=== PATIENT | male | born 1950 | race Caucasian/White ===

== ENCOUNTER 2016-10-05 10:01 | Inpatient (IN) | payer OTHER ==
[2016-10-05 10:19] VITALS: BMI 17.6
--- NOTE | 2016-10-05 10:27 | PDOC ---
History of Present Illness - General Chief Complaint: CVA/TIA Stated Complaint: RT ARM NUMBNESS X1 WEEK/PCP SENT FOR ADMIN Time Seen by Provider: 10/05/16 10:26 History Source: Patient Exam Limitations: No Limitations - History of Present Illness Initial Comments: 10/05/16 10:38 65y M no known pmhx sent to [facility] ED for evaluation of spinal cord mass. The pt endorses having a tingling in his 4-5th digits in may, went to urgent care and was d/x with a pinched nerve, and was referred to PT and pain mangaement who ordered an MRI that was consistent with a mass in the cervical spine at at C7-T1. The pt was referred to dr. Claros who saw the patient today and referred him to the ER for emergent neurosurgical consult. The patient also endorses an extensive smoking history and history of 20lb weight loss over the paseveral months. The pt denies any other pain, weakness/neurlogical deficits. Past History - Past Medical History Allergies/Adverse Reactions: Allergies Allergy/AdvReac Type Severity Reaction Status Date / Time No Known Allergies Allergy Verified 10/05/16 10:15 Home Medications: Ambulatory Orders NK [No Known Home Medication] 10/05/16 Cancer: Yes (MASS IN NECK) - Psycho/Social/Smoking Cessation Hx Suicidal Ideation: No Smoking History: Former smoker Have you smoked in the past 12 months: Yes Information on smoking cessation initiated: No Review of Systems - Review of Systems Able to Perform ROS?: Yes Comments:: 10/05/16 10:54 Constitutional - +weight loss no reported Fever, Chills, weakness, HEENT: no reported vision changes, sore throat Respiratory: no reported cough, sob, hemoptysis Cardiac: no reported chest pain, palpitations, light headedness, leg swelling Abd/GI: no reported abd pain, nausea, vomiting, blood per rectum, melena, diarrhea : no reported dysuria, frequency, discharge Musculskelatal - +neck pain, +R arm weakness no reported joint swelling skin - no reported bruising, erythema, rash neurological: no reported headache, numbness, focal weakness, tingling, ataxia, weakness hematologic: no reported anemia, easy bruising, easy bleeding *Physical Exam - Vital Signs Last Vital Signs Temp Pulse Resp BP Pulse Ox 98.1 F 112 H 19 146/95 98 10/05/16 10:15 10/05/16 10:15 10/05/16 10:15 10/05/16 10:15 10/05/16 10:15 - Physical Exam Comments: 10/05/16 10:56 GENERAL: The patient is awake, alert, and fully oriented, Nontoxic - in no acute distress. HEAD: Normocephalic, atraumatic. EYES: extraocular movements intact, sclera anicteric, conjunctiva clear. ENT: Normal voice, Moist mucous membranes. NECK: mild cervical tenderness diffusely Normal range of motion, supple LUNGS: Breath sounds equal, clear to auscultation bilaterally. No wheezes, no rhonchi, no rales. HEART: Regular rate and rhythm, normal S1 and S2 without murmur, rub or gallop. ABDOMEN: Soft, nontender, normoactive bowel sounds. No guarding, no rebound. . No CVA tenderness EXTREMITIES: Normal range of motion, no edema. No clubbing or cyanosis. No cords, erythema, or tenderness. NEUROLOGICAL: No facial assymetry, Normal speech, elbow flexion/extension intact , wrist flexion/extension intact, unable to abduct/adduct, flex/extend digits, atrophy of the interossei muscles and thenar/hypothenar emeninences. PSYCH: Normal mood, normal affect. SKIN: Warm, Dry, normal turgor, Heart Score/ECG Review - ECG Impressions Comment:: 10/05/16 11:20 Twelve-lead EKG was performed and reviewed by me. There is normal sinus rhythm with a normal rate. rate of 95 The axis is normal. qtc interval of 507 twi in inferior leads ED Treatment Course - LABORATORY CBC & Chemistry Diagram: 10/05/16 10:45 10/05/16 10:45 Medical Decision Making - Medical Decision Making 10/05/16 10:57 65y M presents with R arm weakness and +mass on outpatient MRI pt gien decadron 24mg preop labs and will discuss with neurosurgery anticipate admission for further management pt noted mildly tachycadic will give pt fluids 10/05/16 11:18 The case was discussed with Dr. Osuna, request MRI w/wo contrast of cervical spine and that patient will likely need a metastatic workup in light of his extensiv smoking history. also agree with high dose decadron. 10/05/16 11:44 pts labs noted for mild leukocytosis and an elevated cr to 1.7 with elevated bun cxr shows prominent hilum case d/w dr. doshi agreed with admissio for further management stable for med/surg. Case discussed in detail with admitting physician including history, physical exam and ancillary studies. Admitting physician has assumed care for the patient, will follow all pending diagnostics and will complete the evaluation and treatment. *DC/Admit/Observation/Transfer Diagnosis at time of Disposition: Cervical spinal mass, Right hand weakness - Discharge Dispostion Condition at time of disposition: Guarded Admit: Yes
[2016-10-05] MEDS ORDERED: DEXAMETHASONE SOD PHOSPHATE 20 MG/5 ML VIAL IVPB ONE (10:28)
[2016-10-05] MEDS ORDERED: SODIUM CHLORIDE 500 ML IV STA (10:40)
[2016-10-05] MEDS ORDERED: morphine CARPU-JECT 2 MG/1 ML DISP.SYRIN IVPUSH ONE (10:40)
[2016-10-05] MEDS ORDERED: morphine CARPU-JECT 2 MG/1 ML DISP.SYRIN ONE (10:51)
[2016-10-05 10:54] LABS: BASOPHIL 0.3 % (0-2.0); MCH 28.8 pg (25.7-33.7); MCHC 33.7 g/dl (32.0-35.9); MEAN CELL VOLUME 85.4 fl (80-96); MEAN PLT VOLUME 8.3 fl (7.5-11.1); NEUTROPHILS 91.2 % (42.8-82.8); PLATELET COUNT 231 K/MM3 (134-434); RDW 13.9 % (11.9-15.9); WHITE BLOOD COUNT 15.4 K/mm3 (4.0-10.0)
[2016-10-05] MEDS ORDERED: FAMOTIDINE 20 MG/50 ML IVPB 20 MG in PREMIX 50 IVPB ONE (11:05)
[2016-10-05] MEDS ORDERED: FAMOTIDINE 20 MG/50 ML IVPB 50 ML IVPB ONE (11:09)
[2016-10-05 11:19] LABS: ALBUMIN 4.1 g/dl (3.4-5.0); CALCIUM 10.3 mg/dL (8.5-10.1); CREATININE 1.7 mg/dL (0.7-1.3)
[2016-10-05 11:23] LABS: BILIRUBIN,TOTAL 0.5 mg/dL (0.2-1.0); TOT PROT 7.2 g/dl (6.4-8.2)
[2016-10-05] MEDS ORDERED: SODIUM CHLORIDE 1,000 ML IV SCH (13:45)
--- NOTE | 2016-10-05 14:19 | HP ---
CHIEF COMPLAINT: Right arm weakness. PCP: None HISTORY OF PRESENT ILLNESS: 65 year old male with no PMH presents to the hospital referred from Dr. Claros office. He is complaining of right hand weakness and numbness that started in May. First he noticed numbness and paresthesias in 4th and 5th digit of right hand. He went to urgent clinic where he was told that has pinched nerve, was prescribed pain medications, x ray and PT. He followed that for several weeks without improvement. It got progressively worse. He was sent to pain management doctor who ordered MRI of the spine and referred him to Oncologist- Dr. Claros. He had his first appointment with him today. Today he is also complaining of pain in the cervical spine, weakness in right UE, especially in hand and pain in the tip of his fingers. He also reports decreased sensation in 4th and 5th digits. The pt states that he lost 20 lbs in the past 5 months despite having good appetite. Additionally for the past 3 days he has nasal congestion. Denies fevers, chills, SOB, sore throat. He denies any other loss of sensation, weakness, numbness, dizziness, vision problems, balance problems, headache. He denies chest pain, palpitations, dysuria, increased frequency, urgency. ER course was notable for: (1)WBC (2)BUN, Cr, CXR (3)Dexomethasone, Morphine PAST MEDICAL HISTORY: Denies PAST SURGICAL HISTORY: Denies Social History: Smoking:former smoker, quit 3 weeks ago, 45 years 1 pack/day. Alcohol:denies Drugs: denies Family History: Mother: Bronchiectasis Father: Lung Ca, HTN Allergies: No Known Allergies Allergy (Verified 10/05/16 10:15) HOME MEDICATIONS: Home Medications Medication Instructions Recorded NK [No Known Home Medication] 10/05/16 REVIEW OF SYSTEMS CONSTITUTIONAL: Absent: fever, chills, diaphoresis, generalized weakness, malaise, loss of appetite, weight change HEENT: nasal congestion Absent: rhinorrhea, throat pain, throat swelling, difficulty swallowing, mouth swelling, ear pain, eye pain, visual changes CARDIOVASCULAR: Absent: chest pain, syncope, palpitations, irregular heart rate, lightheadedness , peripheral edema RESPIRATORY: Absent: cough, shortness of breath, dyspnea with exertion, orthopnea, wheezing, stridor, hemoptysis GASTROINTESTINAL: Absent: abdominal pain, abdominal distension, nausea, vomiting, diarrhea, constipation, melena, hematochezia GENITOURINARY: Absent: dysuria, frequency, urgency, hesitancy, hematuria, flank pain, genital pain MUSCULOSKELETAL: Absent: myalgia, arthralgia, joint swelling, back pain, neck pain SKIN: Absent: rash, itching, pallor HEMATOLOGIC/IMMUNOLOGIC: Absent: easy bleeding, easy bruising, lymphadenopathy, frequent infections ENDOCRINE: Absent: unexplained weight gain, unexplained weight loss, heat intolerance, cold intolerance NEUROLOGIC: left arm weakness, loss of sensation in 4th and 5th fingers Absent: headache, dizziness, unsteady gait, seizure, mental status changes, bladder or bowel incontinence PSYCHIATRIC: Absent: anxiety, depression, suicidal or homicidal ideation, hallucinations. PHYSICAL EXAMINATION Vital Signs - 24 hr 10/05/16 10/05/16 12:36 13:03 Temperature 98.6 F Pulse Rate 103 H Pulse Rate [ 88 Apical] Respiratory 18 18 Rate Blood Pressure 188/116 Blood Pressure 182/102 [Left Arm] O2 Sat by Pulse 98 Oximetry (%) GENERAL: Awake, alert, and fully oriented, cachectic. HEAD: Normal with no signs of trauma. EYES: Pupils equal, round and reactive to light, extraocular movements intact, sclera anicteric, conjunctiva clear. No lid lag. EARS, NOSE, THROAT: Ears normal, nares patent, oropharynx clear without exudates. Moist mucous membranes. NECK: Normal range of motion, mild tenderness to palpation. LUNGS: Breath sounds equal, clear to auscultation bilaterally. No wheezes, and no crackles. No accessory muscle use. HEART: Regular rate and rhythm, normal S1 and S2 without murmur, rub or gallop. ABDOMEN: Soft, nontender, not distended, normoactive bowel sounds, no guarding, no rebound, no masses. No hepatomegaly or splenomegaly. MUSCULOSKELETAL: No bony deformities or tenderness. No CVA tenderness. UPPER EXTREMITIES: No peripheral edema, warm. LOWER EXTREMITIES: No peripheral edema, warm. NEUROLOGICAL: Normal speech. Gait not observed, no facial asymmetry, weakness in forearm and arm 4/5, weakness in right hand 2/5, loss of sensation to 4th and 5th digit. PSYCHIATRIC: Cooperative. Good eye contact. Appropriate mood and affect. SKIN: Warm, dry, normal turgor, no rashes or lesions noted. CXR: prominent right hilium, possibility of hiliar mass MRI: Outside MRI of C-spine with C-6/C-7 mass with osseous destruction. Mass extends into spinal canal displacing the spinal cord to L of the midline and severe right neural foramina and right lateral recess narrowing. Has central spinal canal stenosis and discogenic disease as well. ASSESSMENT/PLAN: 65 year old male with no PMH presents to the hospital referred from Dr. Claros office. He is complaining of right hand weakness and numbness that started in May.Today he is also complaining of pain in the cervical spine, weakness in right UE, especially in hand and pain in the tip of his fingers, and decreased sensation in 4th and 5th digits of R hand. The pt states that he lost 20 lbs in the past 5 months. He is admitted to med surg due to cervical mass. 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 Possibly from his lung due to smoking. Will obtain CT abdomen/Pelvis and chest. -MRI reviewed, will f/u next one today -f/u Oncology consultation -f/u Neurosurgery consultation -will order CT chest to f/u results from CXR; -continue steroids: dexamethasone 24 mg Q6h, BGM ACHS -pain control Oxycodone -CT w/o contrast chest and abdomen/pelvis Hypertension; -no home meds, -will start Norvasc 10 mg Daily PAXTON; -possibly due to dehydration -BUN 29, Cr 1.7, no known baseline -will continue fluids NS at rate 75 ml/hr -avoid nephrotoxic substances -BMP in AM DVT PPX: -SCDs F/E/N: NS/No changes/Regular Disposition; Med surg. Problem List - Problem (1) Cervical spinal mass Code(s): G95.9 - DISEASE OF SPINAL CORD, UNSPECIFIED Visit type - Emergency Visit Emergency Visit: Yes ED Registration Date: 10/05/16 Care time: The patient presented to the Emergency Department on the above date and was hospitalized for further evaluation of their emergent condition. - New Patient This patient is new to me today: Yes Date on this admission: 10/05/16 - Critical Care Critical Care patient: No
[2016-10-05] MEDS ORDERED: oxyCODONE HCL 5 MG TABLET PO PRN (14:49)
[2016-10-05] MEDS ORDERED: amLODIPine BESYLATE 5 MG TABLET (FP) ONE (14:54)
[2016-10-05] MEDS: amLODIPine BESYLATE 10 MG TABLET (FP) PO SCH (14:57)
--- NOTE | 2016-10-05 15:06 | EKG ---
Test Reason : Blood Pressure : / mmHG Vent. Rate : 095 BPM Atrial Rate : 095 BPM P-R Int : 138 ms QRS Dur : 084 ms QT Int : 404 ms P-R-T Axes : 079 078 -79 degrees QTc Int : 507 ms NORMAL SINUS RHYTHM MINIMAL VOLTAGE CRITERIA FOR LVH, MAY BE NORMAL VARIANT PROLONGED QT ABNORMAL ECG NO PREVIOUS ECGS AVAILABLE Confirmed by MODESTA ALVARADO MD ([id number]) on 10/05/2016 3:06:11 PM Referred By: Confirmed By:MODESTA ALVARADO MD
--- NOTE | 2016-10-05 15:31 | PN ---
Teaching Attending Note Name of Resident: Myra Erazo ATTENDING PHYSICIAN STATEMENT I saw and evaluated the patient. I reviewed the resident's note and discussed the case with the resident. I agree with the resident's findings and plan as documented. SUBJECTIVE: This is a 65-year-old man with no significant history and who had not seen a physician in many years, who comes to the ER today with pain and weakness of his right arm. He first noted numbness of his right 4th and 5th fingers in May 2016. He then developed pain in his right arm. He went to urgent care and was told he had a pinched nerve. He was advised to take a NSAID and a muscle relaxant. There was no improvement. He then started physical therapy and since his symptoms persisted, he saw an orthopedic surgeon at [place] , who told him he had a herniated disc. He then saw Dr. Mullins and had an MRI of his neck. He was told there was a mass, likely a malignancy, and he was referred to Dr. Claros, who saw him today and sent him to the ER. The patient reports pain in the right posterior neck and 20 lb weight loss over the last 4 months. His appetite had been good until the last few days. He also notes a decrease in frequency of bowel movements but no change in color, size or consistency. OBJECTIVE: Vital Signs Period Temp Pulse Resp BP Sys/Ricci Pulse Ox Last 24 Hr 98.1 F-98.6 F 88-112 18-19 146-188/95-116 98-99 GENERAL: Cachectic HEART: S1 S2, RRR LUNGS: Clear ABDOMEN: Soft, non-tender, non-distended, normal BS EXTREMITIES: No edema NEUROLOGICAL: Decreased sensation right 4th and 5th fingers, right hand grasp 2/ 5 ASSESSMENT AND PLAN: 1. Neck mass - Neurosurgery consult - MRI of neck with contrast recommended - CXR shows prominent right hilum - Will do chest CT to evaluate for lung mass - CT abdomen and pelvis - Oncology consult - Decadron started 2. Possible acute kidney injury, possible stage 3 chronic kidney disease - IV fluid - Monitor BUN, creatinine 3. Hypertension - No ACEI/ARB or diuretic secondary to elevated creatinine - Start Norvasc
--- NOTE | 2016-10-05 15:44 | PN ---
Progress Note (short form) - Note Progress Note: Consult Dictated 65 year old male who presents with progressive weakness, numbness , pain RUE with inability to have significant functioning of RUE. In May had numbness of 4th and 5th digits of right hand. Went to [facility] and had C-spine X-ray and told of "pinched nerve". Patient given Robaxin and Naprosyn. Progressive pain and numbness of RUE with radiation down Right arm. Underwent P.T. x 1 1/2 months - 3 x per week with neck stretching with no relief. Saw Ortho in Jul. and told of herniated disc. Saw Dr. Mullins in August . Had MRI of C-spine with C-6--C-7 mass with osseous destruction .Mass extends into spinal canal displacing the spinal cord left of the midline and resulting in severe right neural foramina and right lateral recess narrowing. Has central spinal canal stenosis and discogenic disease as well. Of interest in [place] and exposed to agent orange in 1969. P.E. non contributory , mid-epigastric fullness and right inguinal hernia with intestinal contents in scrotum. Labs with Ca++-10.3, Creatineine 1.7. Despite good appetite -20 lb weight loss since May. Also 40 pack year smoker discontinued 2 weeks earlier. Likely malignancy --??Lung ca with right hilar fullness, family history, smoking. Plan: CT-chest, abdomen, pelvis - if creatinine improves with hydration - contrast otherwise without Biopsy of Neck mass Steroids--decadron -24 mg IVPB q 6 h and taper.(72 mg, 48 mg, 24 mg and maintain ) Neurosurgery and RT consulted. PPI, DVT prophylaxis- may need to be held for biopsy timing Morphine 2-3 mg q 3-4 h IV Laxatives. N.S and RTconsulted
[2016-10-05] MEDS ORDERED: morphine CARPU-JECT 2 MG/1 ML DISP.SYRIN IVPUSH PRN (15:47)
--- NOTE | 2016-10-05 16:38 | PN ---
Progress Note (short form) - Note Progress Note: NEUROSURGERY History obtained Pt examined Right hand D4-5 weakness, numbness, tingling and pain starting in May. X- rays negative of hand. Symptoms progressively worse and was sent to pain management Dr Mullins who ordered MRI and referred him to Oncologist, Dr. Clraos. He had his first appointment with Dr Claros today. c/o some pain in the cervical spine, weakness in right UE, especially in hand and pain in the tip of his fingers. Also lost 20 lbs in the past 5 months. No primary malignancy, no recent infections. PE: AF, VSS General- unremakable, thin CV-RRR; Lungs- CTA; Abd- benign; Ext- no sign of DVT Neuro- A/A/Ox4 CN- intact, no Juni's; Motor- 5/5 except R hand and triceps 1-2/5; Sensation- decreased LT/PP R C7-8; DTR- decreased R triceps refelx, no LTS Outside MRI of C-spine reportedly with C-6/C-7 mass with osseous destruction. Mass extends into spinal canal displacing the spinal cord to L of the midline and severe right neural foramina and right lateral recess narrowing. Has central spinal canal stenosis and discogenic disease as well. Needs MRI of C spine with juan to better delineate the lesion/extent (though elevated Cr 1.7/BUN 29 with eGFR of 40.40, but above minimal threshold of 30) IVF hydration in anticipation for MRI with juan Renal eval baseline Primary CA w/u per oncology Further recommendations after imaging studies Care d/w patient and Dr Claros
[2016-10-05] MEDS ORDERED: PANTOPRAZOLE 40 MG TABLET (FP) PO ONE (16:51)
[2016-10-05] MEDS: DEXAMETHASONE SOD PHOSPHATE 10 MG/1 ML VIAL IVPB SCH ×2 (16:53→20:51)
[2016-10-05] MEDS: POLYETHYLENE GLYCOL 3350 119 GM BTL PO SCH (16:53)
[2016-10-05] MEDS: SODIUM CHLORIDE 0.45%/POT 1,000 ML IV SCH (17:19)
--- NOTE | 2016-10-05 17:49 | PN ---
Progress Note (short form) - Note Progress Note: Radiation Oncology Pt seen and examined, chart and history reviewed. Full consult to follow. 65 yo smoker reportedly w c-spine mass on outside MRI about 3 wks ago, associated with increasing neck/RUE pain and RUE weakness/numbness. Admitted for further workup, suspect malignancy with spinal canal/cord compromise. Will need tissue diagnosis. MRI is pending. As likely to be metastatic agree with workup for primary site as well as extent of disease. High dose steroids instituted and to continue. Will await MRI. Cont neuro checks. To be seen by neurosurgery.
--- NOTE | 2016-10-05 18:34 | PN ---
Progress Note (short form) - Note Progress Note: Have dropped off MRI and reviewed with Dr. Driscoll. To consider biopsy. Per Dr. Osuna , hydrate such that DEVI might be feasible with MRI.
--- NOTE | 2016-10-05 20:34 | CONS ---
DATE OF CONSULTATION: 10/05/2016 This 65-year-old male was first seen in the office earlier today. He presented with a history of developing numbness of the 4th and 5th digits of his right hand in May. He went to an [facility]. He was prescribed Robaxin as well as Naprosyn. Pain persisted, numbness developed he developed back pain as well as right upper extremity radicular pain. He underwent physiotherapy for 1-1/2 months, receiving it 3 times per week, including neck stretching. He was seen by an orthopedist and was told he had a herniated disk. It should be mentioned that at the [facility], a plain film was done and the patient was told he had a "pinched nerve." The patient was seen by Dr. Mullins in August. Dr. Mullins prescribed an MRI and the patient was found to have a mass in the C6-C7 region with osseous destruction and involvement of the spinal canal with encroachment on the neuroforamen. There was also spinal canal stenosis and diskogenic disease. Over the course of the past 3 months since May, the patient has had a weight loss of 20 pounds. He has had increasing pain and increasing numbness of the right upper extremity, almost to the point that he has called it "nonfunctional". PAST HISTORY: Hypertension and arthritis. PAST SURGICAL HISTORY: He has never had a colonoscopy or upper endoscopy. FAMILY HISTORY: Mother had bronchiectasis. Father was a smoker and had lung cancer. There was a maternal aunt with lung cancer, another maternal aunt with breast cancer and a paternal grandfather with throat cancer. SOCIAL HISTORY: The patient was a 9-uzbn-dew-day smoker for 40 years and discontinued it 2 weeks ago. Patient denies alcohol and drugs. Patient has not had any travel. ALLERGIES: There are no known allergies. REVIEW OF SYSTEMS: Constitutional: No fevers, sweats, night sweats, but with weight loss as aforementioned. Patient is tired and fatigued. Respiratory: Patient is congested with nausea and coughing up clear sputum. There is no chest pain. Gastrointestinal: Some nausea. No emesis. Some constipation. No diarrhea, melena or hematochezia. Genitourinary: No dysuria, hematuria or pyuria. Musculoskeletal: Right upper extremity pain, weakness, numbness, neck pain and back pain. Skin: No rashes. Neurologic: Numbness, right upper extremity and hand. Hematologic: No easy bruisability. Psychologic: No significant abnormalities. ALLERGIES: No known allergies. PHYSICAL EXAMINATION: Vital Signs: BP 160/90, pulse 68, respiratory 18. Weight 127. Height 1.803 m (5 feet 11 inches). BMI 17.7. HEENT: LO. EOM intact. Oropharynx: No pharyngitis, mucositis or tonsillitis. Mild decrease in papillation of the tongue. Neck: No masses, cervical, supraclavicular, axillary or inguinal adenopathy. Lungs: Relatively clear to P&A without rales or rhonchi. Cardiac: RSR without murmur or gallop. Abdomen: No organomegaly. No masses. Mid-epigastric fullness. Right inguinal hernia with right scrotum enlarged with intestinal contents. Extremities: No paresthesias of the lower extremities. Vibratory sense intact, lower extremities. LABORATORY: Labs that are currently available include WBC of 15.4, hematocrit 44.2, platelets 231, polys 91, lymphs 4.3, monocytes 4. INR 1. Chemistries: Sodium 140, potassium 36, chloride 100, CO2 of 28, BUN 29, creatinine 1.7, calcium 10.3, OT 13, PT 15, alkaline phosphatase 71, protein 7.2, albumin 4.1. Chest x-ray reviewed; right prominence of hilum. MRI report reviewed: Mass in the C6-C7, osseous destruction with extension into the spinal canal and encroachment on the neural foramen, diskogenic disease, and cervical canal spinal stenosis. The patient was in [place] in 1969 and was exposed to Agent [place] in 1969. IMPRESSION: With a neck mass with bony destruction, encroachment on the spinal column affecting the neural foramen with right upper extremity weakness, numbness and radicular pains, we are likely dealing with a malignancy. The smoking history of 40-pack years and right hilar fullness raises a concern for a malignancy of the lung. The patient has been placed on steroids with Decadron 24 mg q.6 h. The patient will be seen by Neurosurgery, Radiation Therapy and Interventional Radiology for a biopsy. The patient will need total body CAT scans. The patient will need morphine for pain management. The patient will also need proton pump inhibitors for GI prophylaxis. Further recommendations will be based upon the results of the biopsy and CAT evaluation. ADOLPH COON M.D. JENN/[id number]
[2016-10-05 21:35] LABS: URINE APPEARANCE CLEAR; URINE BILIRUBIN NEGATIVE (NEGATIVE); URINE COLOR YELLOW; URINE GLUCOSE (UA) NEGATIVE (NEGATIVE); URINE KETONE NEGATIVE (NEGATIVE); URINE LEUK ESTERASE NEGATIVE (NEGATIVE); URINE NITRITE NEGATIVE (NEGATIVE); URINE UROBILINOGEN NEGATIVE E.U./dl (0.2-1.0)
[2016-10-05 21:41] LABS: URINE BLOOD 1+ (NEGATIVE); URINE PROTEIN 1+ (NEGATIVE)
[2016-10-06] MEDS: DEXAMETHASONE SOD PHOSPHATE 10 MG/1 ML VIAL IVPB SCH ×3 (02:58→17:14)
[2016-10-06] MEDS: SODIUM CHLORIDE 0.45%/POT 1,000 ML IV SCH ×2 (05:03→17:13)
[2016-10-06 07:46] LABS: MCH 29.4 pg (25.7-33.7); MCHC 34.9 g/dl (32.0-35.9); MEAN CELL VOLUME 84.3 fl (80-96); MEAN PLT VOLUME 8.6 fl (7.5-11.1); PLATELET COUNT 209 K/MM3 (134-434); RDW 13.8 % (11.9-15.9); WHITE BLOOD COUNT 7.9 K/mm3 (4.0-10.0)
[2016-10-06 08:21] LABS: CALCIUM 10.2 mg/dL (8.5-10.1); CREATININE 1.6 mg/dL (0.7-1.3)
[2016-10-06] MEDS: amLODIPine BESYLATE 10 MG TABLET (FP) PO SCH (10:26)
--- NOTE | 2016-10-06 10:39 | PN ---
Progress Note (short form) - Note Progress Note: NEUROSURGERY Same overall Slpept well with minimal pain on high dose iv steroid PE: AF, VSS General- unremakable, thin CV-RRR; Lungs- CTA; Abd- benign; Ext- no sign of DVT Neuro- A/A/Ox4 CN- intact, no Juni's; Motor- 5/5 except R hand and triceps 1-2/5; Sensation- decreased LT/PP R C7-8; DTR- decreased R triceps refelx, no LTS Outside MRI of C-spine reportedly with C-6/C-7 mass with osseous destruction. Mass extends into spinal canal displacing the spinal cord to L of the midline and severe right neural foramina and right lateral recess narrowing. Chest CT- Large posterior RLL mass; ? lymphadenopathy Cr 1.6 now Has central spinal canal stenosis and discogenic disease as well. Needs MRI of C spine with juan to better delineate the lesion/extent (though elevated Cr 1.7/BUN 29 with eGFR of 40.40) IVF hydration in anticipation for MRI with juan Renal eval baseline Primary CA w/u per oncology Further recommendations after Cspine contrast imaging studies Care d/w patient, Dr Meadows and Dr Claros Reportedly for CT guided bx of RLL lung lesion?
--- NOTE | 2016-10-06 11:57 | CONS ---
DATE OF CONSULTATION: 10/05/2016 CHIEF COMPLAINT: Right hand weakness and pain. HISTORY OF PRESENT ILLNESS: The patient is a 65-year-old right-handed male with history of hypertension, who complains of approximately 4+ month history of progressive right hand numbness, paresthesias/pain, and weakness. It first started as numbness and tingling in the 4th and 5th digits of the right hand with decreased range of motion. There was also some associated forearm and hand pain at that time. He was in the urgent care center and x-rays were reportedly negative. The patient was told that he had "pinched nerve." Because of this persistent pain, he was sent for pain management evaluation with Dr. Mullins. The patient had developed worsening weakness over the last few months. This was to a degree that he could not use his right hand at all. He denies Holland sign, and has no bowel or bladder incontinence. His gait has been normal. He denies any recent infections. He has no history of systemic malignancy. The patient had reportedly been exposed to Agent [place] during the [place] by report. He does not see a doctor regularly. He did report a 20-pound weight loss in the last few months. PAST MEDICAL HISTORY: Significant for hypertension. CURRENT MEDICATIONS: Dexamethasone, MiraLAX, Norvasc, oxycodone, and morphine p.r.n. ALLERGIES: No drug allergy. FAMILY HISTORY: Noncontributory. SOCIAL HISTORY: He smokes a half pack of cigarettes for the past 50+ years. He drinks alcohol socially. He lives at home. He is retired. REVIEW OF SYSTEMS: Otherwise negative for other major cardiovascular, pulmonary , gastrointestinal, genitourinary, endocrinologic, neurological, psychological problems except for the above. PHYSICAL EXAMINATION:Vital Signs: Temperature is 98.6, blood pressure is 162/ 106, pulse rate is 97, O2 saturation is 99% on room air. HEENT: Shows him to be normocephalic, atraumatic, anicteric. Neck: Supple with mild paraspinal muscle spasm. Cervical spine flexion is 30 degrees and extension is 25 degrees. Lateral rotation is 35 to 40 degrees in each direction. Coronary: Demonstrates a regular rhythm. Lungs: Clear bilaterally. Abdomen: Benign. Extremities: Show no signs of DVT. Distal pulses are 1+ and symmetric. Neurologic: He is awake, alert and oriented x4. Cranial nerve examination is intact. Motor examination shows 5/5 strength. He has right hand intrinsic muscles which are 0/5. Wrist extensors 2/5 and the right triceps is 1-2/5. Biceps is 4 +/5. Sensory exam demonstrates diminished pinprick and vibratory sensation in the right C7 and C8 distribution. Deep tendon reflexes are 2+ throughout. He has diminished right triceps reflex. Gait is normal. There is no pathological long tract sign. LABORATORY EXAMINATION: Shows a white blood cell count to be 15,400, hemoglobin is 14.9, platelet count is 231,000. INR is 1. Serum sodium is 140 and potassium is 3.6. BUN 29, creatinine 1.7. GFR is 40.4. LFTs are normal. Outside CT scan of the cervical spine reportedly demonstrated paraspinal mass at C6 and C7 with vertebral body destruction. There is also foraminal stenosis on the right as well as some epidural extension with impingement of the spinal cord on the right. These images are not available for my review. IMPRESSION: 1. 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 2. Hypertension. RECOMMENDATIONS: The patient presents with 4+-month history of progressive right hand weakness, numbness, paresthesias, and pain. MRI reportedly demonstrated a paraspinal lesion with vertebral body involvement and epidural extension. Given the description, it is most likely a metastasis. Primary tumor evaluation per Medical Oncology team as initiated. The patient was put on high-dose steroid, per Dr. Claros, already. I also started him on Protonix for gastritis prophylaxis. An MRI of the cervical spine with gadolinium is recommended to evaluate exact extent of the neoplastic disease, as well as a more precise degree of neurologic element impingement. A further recommendation will be made upon availability of the metastatic workup as well as a cervical spine MRI examination. The prognosis for neurological recovery is going to be poor because he has no antigravity strength of his right hand whatsoever already at this time. The above plan was discussed with the patient at bedside. His care was also discussed with Dr. Claros earlier. IV hydration is recommended because of his borderline renal function in anticipation of contrast MRI of the cervical spine. OJ GUO M.D. [id number] [facility]
[2016-10-06] MEDS: POLYETHYLENE GLYCOL 3350 119 GM BTL PO SCH (12:53)
--- NOTE | 2016-10-06 13:18 | CONS ---
DATE OF CONSULTATION: 10/05/2016 REFERRING PHYSICIAN: Aidan Claros MD REASON FOR CONSULTATION: Cervical spine mass with canal encroachment and right arm weakness and numbness. HISTORY OF PRESENT ILLNESS: The patient is a 66-year-old gentleman who started having numbness in the 4th and 5th digits in the right hand in May. He sought medical attention at an urgent care center where he underwent x-ray of the cervical spine. He was told that he had a pinched nerve and was prescribed NSAIDs analgesics. The numbness persisted, and progressively he developed pain involving the hand and arm on the right side. He had physical therapy without improvement. He was seen by the orthopaedic surgeon and was told he had disk herniation. He was seen by Dr. Mullins in August, and MRI of the cervical spine reportedly showed a mass in the C6-C7 level with destruction and encroachment of the spinal canal and neural foramen. He was seen by Dr. Claros in the office today and referred immediately for further inpatient evaluation. Dr. Claros has started high-dose Decadron, and Neurosurgery consult is awaited. The patient reports a [id number] smoking history, exposure to Agent [place] in [place]. No history of radiation therapy or collagen vascular disease. He has lost about 20 pounds without change in appetite over 2-3 months. PAST MEDICAL HISTORY: Osteoarthritis, hypertension. PAST SURGICAL HISTORY: As noted. ALLERGIES: No known drug allergies. CURRENT MEDICATIONS: Decadron 24 mg IV q.6 hours, MiraLAX, Norvasc, morphine p.r.n., oxycodone p.r.n. SOCIAL HISTORY: Smoked 1 pack per day for 40 years until recently. No significant alcohol abuse or use of drugs. Possible exposure to Agent [place] in [place]. FAMILY HISTORY: Mother bronchiectasis. Father lung cancer. Maternal aunt lung cancer. Maternal aunt breast cancer. Paternal grandfather throat cancer. REVIEW OF SYSTEMS: As noted above. PHYSICAL EXAMINATION: General: A well-appearing gentleman appearing his chronological age in no acute distress. His sister is at the bedside. Vital Signs: Temperature 98.6, blood pressure 188/116, pulse 103, respiratory rate 18, weight 127 pounds, Sa02 98% on room air. HEENT: Normocephalic and atraumatic. Moist mucous membranes. Anicteric sclerae. Clear oral cavity. Spine: No discrete adenopathy in the cervical neck. Mild point tenderness in the right paraspinal C6 level. No thoracolumbar tenderness. Lungs: Clear. No axillary adenopathy. Cardiovascular: Regular. Abdomen: Soft and nontender. Nondistended. Extremities: No edema. Neurologic: Alert, oriented x3. Cranial nerves 2-12 are intact. Decreased sensation to light touch in the right upper extremity. Otherwise, normal sensation throughout. Motor exam: 1/5 in the right hand and fingers, 2/5 right forearm extension, 4/5 right biceps flexion. No pronator drift or shoulder deficit. Left upper extremity and bilateral lower extremities are 5/5. Coordination with the exception of the right upper extremity is normal. Toes are mute bilaterally. Gait is normal. RADIOLOGIC DATA: MRI cervical spine at outside facility as noted above. Chest x-ray: Prominent right hilum. Possibility of hilar mass or lymphadenopathy cannot be excluded. LABORATORY DATA: WBC 15.4, hemoglobin 14.9, platelets 231,000. Electrolytes within normal limits. BUN 29, creatinine 1.7, calcium 10.3. Liver function tests within normal limits. PATHOLOGIC DATA: Pending. IMPRESSION: A 66-year-old smoker [place] with cervical spine mass and canal encroachment associated with right upper extremity neurologic deficit highly suspicious for malignancy. He is admitted for further workup including biopsy for tissue diagnosis, further cervical spine imaging with MRI, and body scan for extent of disease and primary site determination. He likely has metastatic disease in the spine with primary site to be determined though high clinical suspicion of pulmonary malignancy. High-dose steroids have been instituted and will continue. We will await the MRI findings, neurosurgical recommendation, and he will continue pain management with analgesics. Further radiotherapy recommendations will follow. I will continue to follow the patient with you. Thank you for the courtesy of this consultation. TEA MONTESINOS M.D. [id number] MTDD
--- NOTE | 2016-10-06 14:25 | PN ---
Physical Exam: SUBJECTIVE: Patient seen and examined. He is feeling good today.He noticed some improvement with his arm. He has less pain in his arm and it is stronger today. He finally had a good night sleep last night. He is complaining of constipation. Denies headache, vision problems, balance problems, numbness. OBJECTIVE: Vital Signs Period Temp Pulse Resp BP Sys/Ricci Pulse Ox Last 24 Hr 98.5 F-98.8 F 83-109 16-18 137-162/81-113 98-99 GENERAL: The patient is awake, alert, and fully oriented, in no acute distress, cachectic. HEAD: Normal with no signs of trauma. EYES: PERRL, extraocular movements intact, sclera anicteric, conjunctiva clear. No ptosis. ENT: moist mucous membranes. NECK: supple. LUNGS: Breath sounds equal, clear to auscultation bilaterally, no wheezes, no crackles, no accessory muscle use. HEART: Regular rate and rhythm, S1, S2 without murmur, rub or gallop. ABDOMEN: Soft, nontender, nondistended, normoactive bowel sounds, no guarding, no rebound, no hepatosplenomegaly, no masses. EXTREMITIES: 2+ pulses, no edema. NEUROLOGICAL: Cranial nerves II through XII grossly intact. Normal speech, gait not observed. RUE: Sensation: decreased in RUE: arm and forearm, absent in 4, 5th fingers. Motor: flexion of elbow4-5/5, extension5/5, shoulder 5/5. LUE, LEs wnl. DTRs: brachial, knee nl. PSYCH: Normal mood, normal affect. SKIN: Warm, dry, normal turgor, no rashes or lesions noted. Laboratory Results - last 24 hr 10/05/16 10/05/16 10/06/16 20:51 21:17 06:21 WBC RBC Hgb Hct MCV MCHC RDW Plt Count MPV Sodium Potassium Chloride Carbon Dioxide Anion Gap BUN Creatinine POC Glucometer 133 137 Random Glucose Calcium Urine Color Yellow Urine Appearance Clear Urine pH 5.0 Ur Specific [place] 1.016 Urine Protein 1+ H Urine Glucose (UA) Negative Urine Ketones Negative Urine Blood 1+ H Urine Nitrite Negative Urine Bilirubin Negative Urine Urobilinogen Negative Ur Leukocyte Esterase Negative 10/06/16 10/06/16 06:50 06:50 WBC 7.9 D RBC 4.59 Hgb 13.5 Hct 38.7 MCV 84.3 MCHC 34.9 RDW 13.8 Plt Count 209 MPV 8.6 Sodium 140 Potassium 4.0 Chloride 103 Carbon Dioxide 25 Anion Gap 12 BUN 35 H D Creatinine 1.6 H POC Glucometer Random Glucose 140 H D Calcium 10.2 H Urine Color Urine Appearance Urine pH Ur Specific [place] Urine Protein Urine Glucose (UA) Urine Ketones Urine Blood Urine Nitrite Urine Bilirubin Urine Urobilinogen Ur Leukocyte Esterase Active Medications Generic Name Dose Route Start Last Admin Trade Name Freq PRN Reason Stop Dose Admin Amlodipine Besylate 10 mg 10/05/16 15:00 10/06/16 10:26 Norvasc - PO 10 mg DAILY TANIA Administration Dexamethasone Sodium Phosphate 24 mg 10/05/16 16:00 10/06/16 10:26 Decadron Injection - IVPB 24 mg Q6H-IV TANIA Administration Potassium Chloride/Sodium Chloride 1,000 mls @ 75 mls/hr 10/05/16 17:00 05:03 1/2ns+20meq Kcl IV 75 mls/hr ASDIR TANIA Administration Morphine Sulfate 2 mg 10/05/16 15:47 Morphine Injection - IVPUSH Q4H PRN PAIN Oxycodone HCl 10 mg 10/05/16 14:49 10/05/16 23:14 Roxicodone - PO 10 mg Q6H PRN Administration PAIN Polyethylene Glycol 17 gm 10/05/16 16:00 10/06/16 12:53 Miralax (For Daily Use) - PO 17 gm DAILY TANIA Administration CXR: prominent right hilium, possibility of hiliar mass MRI: Outside MRI of C-spine with C-6/C-7 mass with osseous destruction. Mass extends into spinal canal displacing the spinal cord to L of the midline and severe right neural foramina and right lateral recess narrowing. Has central spinal canal stenosis and discogenic disease as well. CT chest/abdomen/pelvis; large mass in right lower lobe, scattered nodules in lungs, hydrocele on right kidney, no abdominal pathology ASSESSMENT/PLAN: 65 year old male with no PMH presents to the hospital referred from Dr. Claros office. He is complaining of right hand weakness and numbness that started in May.Today he is also complaining of pain in the cervical spine, weakness in right UE, especially in hand and pain in the tip of his fingers, and no sensation in 4th and 5th digits of R hand. The pt states that he lost 20 lbs in the past 5 months. He is admitted to med surg due to cervical mass. Right UE weakness due to cervical mass -cervical mass possibly from his lung due to smoking, -MRI reviewed, will f/u next one with contrast today -biopsy of the c spine tomorrow -f/u Oncology consultation -f/u Neurosurgery consultation -continue steroids: dexamethasone 24 mg Q6h, BGM ACHS -pain control Oxycodone and Morphine PRN -CT w/o contrast chest and abdomen/pelvis Hypertension; -no home meds, -will start Norvasc 10 mg Daily PAXTON; -possibly due to dehydration -BUN 29, Cr 1.7, no known baseline -will continue fluids 1/2NS and KCl at rate 75 ml/hr -avoid nephrotoxic substances DVT PPX: -SCDs F/E/N: 1/2NS/No changes/Regular Disposition; Med surg. Problem List - Problems (1) Cervical spinal mass Code(s): G95.9 - DISEASE OF SPINAL CORD, UNSPECIFIED (2) Right hand weakness Code(s): M62.81 - MUSCLE WEAKNESS (GENERALIZED) (3) Mass of right lung Code(s): R91.8 - OTHER NONSPECIFIC ABNORMAL FINDING OF LUNG FIELD Visit type - Emergency Visit Emergency Visit: Yes ED Registration Date: 10/05/16 Care time: The patient presented to the Emergency Department on the above date and was hospitalized for further evaluation of their emergent condition. - New Patient This patient is new to me today: No - Critical Care Critical Care patient: No - Discharge Referral Referred to [facility] Med P.C.: No
--- NOTE | 2016-10-06 18:00 | PN ---
Teaching Attending Note Name of Resident: Myra Erazo ATTENDING PHYSICIAN STATEMENT I saw and evaluated the patient. I reviewed the resident's note and discussed the case with the resident. I agree with the resident's findings and plan as documented. SUBJECTIVE: no fever or chills , no abd pain , no TELLES or change in vision . feels improved motor and sensory vergara in RUE. no urinary or fecal incontinence , constipated. OBJECTIVE: NAD CV: RRR, no MRG Lungs : CTAB ext : no edema Neuro : no facial droop, EOMI, round equal pupils , reactive to light , tongue at mid line, uvula at mid line , nl facial sensation . Strength : b/l LE 5/5 proximally and distally . RUE: 5/5 shoulder shrug. 5/5 shoulder abduction , 5/5 biceps , 4/5 triceps , 0-1 /5 hand (finger flexion and extension) LUE : 5/5 shoulder shrug. 5/5 shoulder abduction , 5/5 biceps , 5/5 triceps , 5/ 5 hand. Sensation: RUE: decreased sensation to light touch over fore arm, dorsum and palm, and 1,2, 3rd digit . Absent sensation over 4th, and 5th digits. LUE, LLE, RLE: nl sensation to light touch DTR: 1+ biceps on R , 2+ on L Refused rectal tone exam ASSESSMENT AND PLAN: 66 y/o man with no medical care for a while who presented with R upper ext weakness. 1- RUE weakness, due to c spine mass with compression. Primary is likely lung cancer. - will arrange for lung mass Bx tomorrow. - NPO after MN - cont steroids . - Appreciate onc and neuro sx Recs. - MRI of c spine with juan . GFR > 30 . unlikely pt will develop systemic nephrogenic fibrosis. this risk was explained to pt - monitor neuro exam - might need radiation therapy 2- PAXTON : not clear whether he has CKD or PAXTON . cont IVF 3- hypercalcemia : probably due to malignancy - cont IVF - check PTH - will order PTH related peptide. need prior auth by pathologist 4- OC
--- NOTE | 2016-10-06 20:13 | PN ---
Progress Note (short form) - Note Progress Note: PAtient seen and examined rue weakness pain and sleep improved Last Vital Signs Temp Pulse Resp BP Pulse Ox 98.7 F 97 H 18 130/79 98 10/06/16 17:15 10/06/16 17:15 10/06/16 17:15 10/06/16 17:15 10/06/16 09:00 HEENT: LO, EOM Intact Oropharynx: No thrush, No mucositis Cor: RSR, No murmurs, No gallops Lungs: Clear to P&A Abd: Soft, Normal bowel sounds, No organomegaly Ext:No significant edema Abnormal Lab Results 10/05/16 10/06/16 20:51 06:50 BUN 35 H D Creatinine 1.6 H Random Glucose 140 H D Calcium 10.2 H Urine Protein 1+ H Urine Blood 1+ H Abnormal Lab Results 10/05/16 10/06/16 20:51 06:50 BUN 35 H D Creatinine 1.6 H Random Glucose 140 H D Calcium 10.2 H Urine Protein 1+ H Urine Blood 1+ H Current Medications Amlodipine Besylate (Norvasc -) 10 mg PO DAILY [facility] Last Admin: 10/06/16 10:26 Dose: 10 mg Dexamethasone Sodium Phosphate (Decadron Injection -) 24 mg IVPB Q6H-IV [facility] Last Admin: 10/06/16 17:14 Dose: 24 mg Potassium Chloride/Sodium Chloride (1/2ns+20meq Kcl) 1,000 mls @ 75 mls/hr IV ASDIR [facility] Last Admin: 10/06/16 17:13 Dose: 75 mls/hr Morphine Sulfate (Morphine Injection -) 2 mg IVPUSH Q4H PRN PRN Reason: PAIN Oxycodone HCl (Roxicodone -) 5 mg PO Q6H PRN PRN Reason: PAIN Polyethylene Glycol (Miralax (For Daily Use) -) 17 gm PO DAILY [facility] Last Admin: 10/06/16 12:53 Dose: 17 gm A/P 66 y/o patient with presumed lung cancer-- RUL mass/multiple lung nodules and C spine lesion with cord displacement /compression. RUE weakness taper seroids to 24 mg Q8h , then Q 12h , then 4mg Q 16h for IR guided lung biopsy. will need mutational analysis f/u mri
[2016-10-06] MEDS: oxyCODONE HCL 5 MG TABLET PO PRN (22:01)
[2016-10-07] MEDS: DEXAMETHASONE SOD PHOSPHATE 10 MG/1 ML VIAL IVPB SCH ×3 (01:56→21:05)
--- NOTE | 2016-10-07 06:29 | HOSP ---
Physical Examination Vital Signs: Vital Signs Temperature 98.5 F 10/06/16 20:20 Pulse Rate 97 H 10/06/16 17:15 Respiratory Rate 18 10/06/16 21:00 Blood Pressure 143/84 10/06/16 20:20 O2 Sat by Pulse Oximetry (%) 98 10/06/16 21:00 Labs: CBC, BMP 10/06/16 06:50 10/06/16 06:50 Hospitalist Encounter Assessment: Was informed by my attending the latest report of Brain MRI was received. Went to examine the patient and to perform a neuro check. A/c to the patient, he was feeling much better after he received steroid. Patient said pain over his right upper limb resolved, numbness and tingling sensation over the right finger tips still persists. Denies headache, loc, chest pain, sob, cough, palpitation, abdominal pain, nausea or vomiting. Physical examination Vitals: BP- 140/80mmHg P-85bpm, T-98.4F, RR-15 General: Thinly built male lying in bed comfortably, awake, alert, oriented x 3 , in no acute distress. HEENT-EOM intact, no pallor or icterus Chest: B/L chest clear, no wheeze, no crackles CVS: Regular rate and rhythm, S1, S2, no murmur Neuro: Upper limb B/L sensation intact. Left: Bulk, tone, power, reflex normal Right: Bulk normal, tone normal, Power 2/5, dropping of the right wrist, unable to extend her wrist, reflexes diminished. CN 2-12 intact. Abdominal: soft, non tender, no organomegaly. MRI of brain: A solitary 2.7 x 2.5 x 2 cm enhancing irregular right cerebellar hemispheric mass lesion is identified consistent with metastatic neoplastic disease. Perilesional edema is identified which is at least moderate. MRI report not discussed with the patient. Case discussed with Dr. Yousif. Visit type - Emergency Visit Emergency Visit: Yes ED Registration Date: 10/05/16 Care time: The patient presented to the Emergency Department on the above date and was hospitalized for further evaluation of their emergent condition. - New Patient This patient is new to me today: Yes Date on this admission: 10/07/16 - Critical Care Critical Care patient: No
[2016-10-07] MEDS: amLODIPine BESYLATE 10 MG TABLET (FP) PO SCH (09:20)
[2016-10-07 09:23] LABS: CALCIUM 9.6 mg/dL (8.5-10.1); CREATININE 1.4 mg/dL (0.7-1.3)
[2016-10-07 10:41] LABS: URINE CREATININE 42.9 mg/dL
[2016-10-07] MEDS: SODIUM CHLORIDE 0.45%/POT 1,000 ML IV SCH ×2 (10:41→18:09)
[2016-10-07] MEDS: POLYETHYLENE GLYCOL 3350 119 GM BTL PO SCH (11:50)
[2016-10-07] MEDS: oxyCODONE HCL 5 MG TABLET PO PRN (13:52)
--- NOTE | 2016-10-07 14:22 | PN ---
Teaching Attending Note Name of Resident: Myra Erazo ATTENDING PHYSICIAN STATEMENT I saw and evaluated the patient. I reviewed the resident's note and discussed the case with the resident. I agree with the resident's findings and plan as documented. SUBJECTIVE: No fever or chills , no abd pain , no cp . weakness is still the same and he has pain in R hand OBJECTIVE: NAD CV: RRR, no MRG Lungs : CTAB ext : no edema Neuro : no facial droop, EOMI, round equal pupils , reactive to light , tongue at mid line, uvula at mid line , nl facial sensation . Strength : b/l LE 5/5 proximally and distally . RUE: 5/5 shoulder shrug. 5/5 shoulder abduction , 5/5 biceps , 4/5 triceps , 3/ 5 wrist flexion and extension ,0-1/5 hand (finger flexion and extension) LUE : 5/5 shoulder shrug. 5/5 shoulder abduction , 5/5 biceps , 5/5 triceps , 5/ 5 wrist , 5/5 hand. Sensation: RUE: decreased sensation to light touch over fore arm, dorsum and palm, and 1,2, 3rd digit . Absent sensation over dorsal 4th, and 5th digits. LUE, LLE, RLE: nl sensation to light touch DTR: 2+ biceps on R , 1+ R triceps, 2+ on L biceps and triceps ASSESSMENT AND PLAN: 66 y/o man with no medical care for a while who presented with R upper ext weakness. 1- RUE weakness, due to c spine mass with compression. Primary is likely lung cancer. - MRI with a mass lesionin R cerebellum - unfortunately , did not get the MRCI of C spine with juan yesterday - d/w Dr. Brandon today, C spine bx will provide more tissue for all the test compared to Lung bx - will cancel lung bx and arrange for C spine mass BX tomorrow - NPO after MN - cont steroids . - Appreciate onc and neuro sx Recs. Awaiting MRI results - will probably need RTx for brain lesion 2- PAXTON : not clear whether he has CKD or PAXTON . cont IVF 3- Hypercalcemia : probably due to malignancy . resolved with iVF - cont IVF - PTH pending - PTH related peptide to be ordered if authorized 4- HLOC
--- NOTE | 2016-10-07 15:43 | PN ---
Physical Exam: SUBJECTIVE: Patient seen and examined. He denies numbness, paresthesias, more weakness, states that his arm strength is the same. OBJECTIVE: Vital Signs Period Temp Pulse Resp BP Sys/Ricci Pulse Ox Last 24 Hr 98.4 F-98.7 F 87-97 18-20 130-149/74-95 97-98 GENERAL: The patient is awake, alert, and fully oriented, in no acute distress, cachectic. HEAD: Normal with no signs of trauma. EYES: PERRL, extraocular movements intact, sclera anicteric, conjunctiva clear. No ptosis. ENT: moist mucous membranes. NECK: Trachea midline, full range of motion, supple. LUNGS: Breath sounds equal, clear to auscultation bilaterally, no wheezes, no crackles, no accessory muscle use. HEART: Regular rate and rhythm, S1, S2 without murmur, rub or gallop. ABDOMEN: Soft, nontender, nondistended, normoactive bowel sounds, no guarding, no rebound, no hepatosplenomegaly, no masses. EXTREMITIES: no edema. NEUROLOGICAL: Cranial nerves II through XII grossly intact. Normal speech, gait not observed. Motor: RUE: elbow flexion 4/5, extension 3/5, adduction and abduction 5/5, fingers flexion and extension 2/5, LUE 5/5, LEs; 5/5, DTRs nl, Sensation; RUE: decreased inboth arm and forearm, nl in LUE, LEs. Romberg negative, Babinski negative. PSYCH: Normal mood, normal affect. SKIN: Warm, dry, normal turgor, no rashes or lesions noted Laboratory Results - last 24 hr 10/06/16 10/06/16 10/07/16 17:37 21:30 06:30 Sodium 139 Potassium 4.4 Chloride 104 Carbon Dioxide 26 Anion Gap 9 BUN 47 H D Creatinine 1.4 H POC Glucometer 168 Random Glucose 104 D Calcium 9.6 U Random Total Protein 10 Urine Creatinine 42.9 Protein/Creatinin Ratio 0.24 Active Medications Generic Name Dose Route Start Last Admin Trade Name Freq PRN Reason Stop Dose Admin Amlodipine Besylate 10 mg 10/05/16 15:00 10/07/16 09:20 Norvasc - PO 10 mg DAILY TANIA Administration Dexamethasone Sodium Phosphate 24 mg 10/07/16 22:00 Decadron Injection - IVPB BID TANIA Potassium Chloride/Sodium Chloride 1,000 mls @ 75 mls/hr 10/05/16 17:00 10:41 1/2ns+20meq Kcl IV 75 mls/hr ASDIR TANIA Administration Morphine Sulfate 2 mg 10/05/16 15:47 Morphine Injection - IVPUSH Q4H PRN PAIN Oxycodone HCl 5 mg 10/06/16 18:32 10/07/16 13:52 Roxicodone - PO 5 mg Q6H PRN Administration PAIN Polyethylene Glycol 17 gm 10/05/16 16:00 10/07/16 11:50 Miralax (For Daily Use) - PO 17 gm DAILY TANIA Administration CXR: prominent right hilium, possibility of hiliar mass MRI: Outside MRI of C-spine with C-6/C-7 mass with osseous destruction. Mass extends into spinal canal displacing the spinal cord to L of the midline and severe right neural foramina and right lateral recess narrowing. Has central spinal canal stenosis and discogenic disease as well. CT chest/abdomen/pelvis; large mass in right lower lobe, scattered nodules in lungs, hydrocele on right kidney, no abdominal pathology MRI brain:2.7x2.5x2 cm enhancing right cerebellar hemispheric mass lesion consistent with metastatic disease. MRI cervical spine; pending ASSESSMENT/PLAN: 65 year old male with no PMH presents to the hospital referred from Dr. Claros office. He is complaining of right hand weakness and numbness that started in May.Today he is also complaining of pain in the cervical spine, weakness in right UE, especially in hand and pain in the tip of his fingers, and no sensation in 4th and 5th digits of R hand. The pt states that he lost 20 lbs in the past 5 months. He is admitted to med surg due to cervical mass. Right UE weakness due to cervical mass -cervical mass possibly from his lung due to smoking, -mets to his cerebellum, will require radiotherapy -will f/u next MRI with contrast -biopsy of the c spine tomorrow -f/u Oncology consultation: called Dr. Keith, we will change dexamethasone 24 mg to Q12h -f/u Neurosurgery consultation -[facility] -pain control Oxycodone and Morphine PRN Hypertension; -no home meds, -will start Norvasc 10 mg Daily PAXTON; -possibly due to dehydration -no known baseline -will continue fluids 1/2NS and KCl at rate 75 ml/hr -avoid nephrotoxic substances DVT PPX: -SCDs F/E/N: 1/2NS/No changes/Regular Disposition; Med surg. Problem List - Problems (1) Cervical spinal mass Code(s): G95.9 - DISEASE OF SPINAL CORD, UNSPECIFIED (2) Right hand weakness Code(s): M62.81 - MUSCLE WEAKNESS (GENERALIZED) (3) Mass of right lung Code(s): R91.8 - OTHER NONSPECIFIC ABNORMAL FINDING OF LUNG FIELD Visit type - Emergency Visit Emergency Visit: Yes ED Registration Date: 10/05/16 Care time: The patient presented to the Emergency Department on the above date and was hospitalized for further evaluation of their emergent condition. - New Patient This patient is new to me today: No - Critical Care Critical Care patient: No - Discharge Referral Referred to [facility] Med P.C.: No
--- NOTE | 2016-10-07 23:23 | PN ---
Progress Note (short form) - Note Progress Note: PAtient seen and examined rue weakness pain and sleep improved afvss HEENT: LO, EOM Intact Oropharynx: No thrush, No mucositis Cor: RSR, No murmurs, No gallops Lungs: Clear to P&A Abd: Soft, Normal bowel sounds, No organomegaly Ext:No significant edema labs/meds rviewed A/P 66 y/o patient with presumed lung cancer-- RUL mass/multiple lung nodules and C spine lesion with cord displacement /compression. RUE weakness mri brain---rt. cerebellae mass with edema and mild midline shift taper seroids to 24 Q 12h , then 4mg Q 6h for IR guided spinal mass biopsy. will need mutational analysis f/u mri c spine f/u rad-onc consult will need case management/psychiatric social worker consult regarding disposition
--- NOTE | 2016-10-08 07:32 | PN ---
Progress Note (short form) - Note Progress Note: NEUROSURGERY Stable overall Pain better on iv steroid PE: AF, VSS General- unremakable, thin CV-RRR; Lungs- CTA; Abd- benign; Ext- no sign of DVT Neuro- A/A/Ox4 CN- intact, no Juni's; Motor- 5/5 except R hand and triceps 2/5; Sensation- decreased LT/PP R C7-8; DTR- decreased R triceps refelx, no LTS Outside MRI of C-spine reportedly with C-6/C-7 mass with osseous destruction. Mass extends into spinal canal displacing the spinal cord to L of the midline and severe right neural foramina and right lateral recess narrowing. Chest CT- Large posterior RLL mass; ? lymphadenopathy Brain MRI- R cerebellar 2.5 x 2.8 cm met with edema and mild mass effect C spine MRI- R C6-7-T1 parspinal and vertebral mass with pedicle and laminar involvement, some R sided mass effect on cord at C7, multilevel DDD Primary CA w/u per oncology Given multifocal disease, for systemic tx and XRT instead of surgical intervention For bx for paraspinal lesion per IR preference Pt states he wants to be sedated "I don't want to feel a thing"
[2016-10-08 08:56] LABS: MCH 29.4 pg (25.7-33.7); MEAN CELL VOLUME 86.3 fl (80-96); MEAN PLT VOLUME 8.9 fl (7.5-11.1); NEUTROPHILS 96.7 % (42.8-82.8); PLATELET COUNT 199 K/MM3 (134-434); RDW 14.2 % (11.9-15.9); WHITE BLOOD COUNT 15.5 K/mm3 (4.0-10.0)
[2016-10-08 09:20] LABS: CALCIUM 9.8 mg/dL (8.5-10.1); CREATININE 1.3 mg/dL (0.7-1.3)
[2016-10-08] MEDS: DEXAMETHASONE SOD PHOSPHATE 10 MG/1 ML VIAL IVPB SCH (09:25)
[2016-10-08] MEDS: amLODIPine BESYLATE 10 MG TABLET (FP) PO SCH (09:25)
[2016-10-08 09:26] LABS: ACTIVATED PTT 26.7 SECONDS (26.9-34.4)
[2016-10-08] MEDS: oxyCODONE HCL 5 MG TABLET PO PRN (10:07)
--- NOTE | 2016-10-08 11:09 | PN ---
Progress Note (short form) - Note Progress Note: Radiation Oncology Right arm pain abated on high dose decadron. Remains weak in RUE. MRI brain and C-spine shows right cerebellar mass and right C7T1 epidural mass associated w cord displacement. Scheduled for spine bx today. Will need RT to brain and C-spine. Cont decadron/PPI, analgesics prn. Await tissue diagnosis.
[2016-10-08] MEDS ORDERED: MIDAZOLAM HCL 2 MG/2 ML SINGLE DOSE VIAL IVPUSH ONE (11:30)
[2016-10-08] MEDS ORDERED: oxyCODONE HCL 5 MG TABLET PO PRN ×2 (11:38→14:41)
[2016-10-08] MEDS: POLYETHYLENE GLYCOL 3350 119 GM BTL PO SCH (12:27)
[2016-10-08] MEDS: DEXAMETHASONE SOD PHOSPHATE 4 MG/1 ML VIAL IVPB SCH ×2 (14:53→21:10)
--- NOTE | 2016-10-08 14:56 | PN ---
Teaching Attending Note Name of Resident: Myra Erazo ATTENDING PHYSICIAN STATEMENT I saw and evaluated the patient. I reviewed the resident's note and discussed the case with the resident. I agree with the resident's findings and plan as documented. SUBJECTIVE: no fever or chills , no abd pain , no increased weakness, cont to have pain in R hand OBJECTIVE: NAD CV: RRR, no MRG Lungs : CTAB ext : no edema Neuro : no facial droop, EOMI, round equal pupils , reactive to light , tongue at mid line, uvula at mid line , nl facial sensation . Strength : b/l LE 5/5 proximally and distally . RUE: 5/5 shoulder shrug. 5/5 shoulder abduction , 5/5 biceps , 4/5 triceps , 3/ 5 wrist flexion and extension ,0-1/5 hand (finger flexion and extension) LUE : 5/5 shoulder shrug. 5/5 shoulder abduction , 5/5 biceps , 5/5 triceps , 5/ 5 wrist , 5/5 hand. Sensation: RUE: decreased sensation to light touch over fore arm, dorsum and palm, and 1,2, 3rd digit . Absent sensation over ventral 4th, and 5th digits. LUE, LLE, RLE: nl sensation to light touch DTR: 2+ biceps on R , 1+ R triceps, 2+ on L biceps and triceps ASSESSMENT AND PLAN: 66 y/o man with no medical care for a while who presented with R upper ext weakness. 1- RUE weakness, due to C spine mass with compression. Primary is likely lung cancer. 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 dc IVF 4- Hypercalcemia : probably due to malignancy . resolved with iVF - PTH and PTH related peptide to be ordered if authorized 5- HLOC will dc when a clear plan is in place
--- NOTE | 2016-10-08 15:25 | PN ---
Progress Note (short form) - Note Progress Note: Patient seen and examined Underwent biopsy Tolerated Last Vital Signs Temp Pulse Resp BP Pulse Ox 98.6 F 94 H 19 149/93 97 10/08/16 13:55 10/08/16 13:55 10/08/16 13:55 10/08/16 13:55 10/08/16 12:48 HEENT: LO, EOM Intact Oropharynx: No thrush, No mucositis Cor: RSR, No murmurs, No gallops Lungs: Clear to P&A Abd: Soft, Normal bowel sounds, No organomegaly Ext:No significant edema; RUE - weak ;pain improved Skin: No rashes, Integument intact CBC, BMP 10/08/16 07:00 10/08/16 07:00 Current Medications Generic Name Dose Route Start Last Admin Trade Name Freq PRN Reason Stop Dose Admin Amlodipine Besylate 10 mg 10/05/16 15:00 10/08/16 09:25 Norvasc - PO 10 mg DAILY TANIA Administration Dexamethasone Sodium Phosphate 6 mg 10/08/16 15:00 10/08/16 14:53 Decadron Injection - IVPB 6 mg Q6H-IV TANIA Administration Morphine Sulfate 3 mg 10/08/16 11:39 Morphine Injection - IVPUSH Q4H PRN PAIN Oxycodone HCl 10 mg 10/08/16 14:41 Roxicodone - PO Q4H PRN PAIN Polyethylene Glycol 17 gm 10/05/16 16:00 10/08/16 12:27 Miralax (For Daily Use) - PO Not Given DAILY TANIA 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 Contin 15 mg BID Occupational therapy Plan continue taper of steroids Await Biopsy M.S. Contin PT/OT
--- NOTE | 2016-10-08 16:00 | PN ---
Physical Exam: SUBJECTIVE: Patient seen and examined. he is concerned about the biopsy today [facility] He had 2 BM yesterday, first in 6 days. He is still complaining of weakness in right upper extremity. Denies balance problems , vision problems, SOB. OBJECTIVE: Vital Signs Period Temp Pulse Resp BP Sys/Ricci Pulse Ox Last 24 Hr 98.1 F-98.6 F 88-111 17-88 148-169/84-108 97-100 GENERAL: The patient is awake, alert, and fully oriented, in no acute distress, cachectic. HEAD: Normal with no signs of trauma. EYES: PERRL, extraocular movements intact, sclera anicteric, conjunctiva clear. No ptosis. ENT: moist mucous membranes. NECK: Trachea midline, full range of motion, supple. LUNGS: Breath sounds equal, clear to auscultation bilaterally, no wheezes, no crackles, no accessory muscle use. HEART: Regular rate and rhythm, S1, S2 without murmur, rub or gallop. ABDOMEN: Soft, nontender, nondistended, normoactive bowel sounds, no guarding, no rebound, no hepatosplenomegaly, no masses. EXTREMITIES: no edema. NEUROLOGICAL: Cranial nerves II through XII grossly intact. Normal speech, gait not observed. Motor: RUE: elbow flexion 4/5, extension 3/5, adduction and abduction 5/5, wrist flexion 3/5, extension 4/5, fingers flexion and extension 1/5, LUE 5/ 5, LEs; 5/5, DTRs nl, Sensation; RUE: decreased in arm and forearm, hand. LUE, nl LEs nl. Romberg negative, Babinski negative. PSYCH: Normal mood, normal affect. SKIN: Warm, dry, normal turgor, no rashes or lesions noted. Laboratory Results - last 24 hr 10/07/16 10/07/16 10/07/16 06:30 11:49 11:54 WBC RBC Hgb Hct MCV MCHC RDW Plt Count MPV Neutrophils % Lymphocytes % Monocytes % Eosinophils % Basophils % INR PTT (Actin FS) Sodium Potassium Chloride Carbon Dioxide Anion Gap BUN Creatinine POC Glucometer 115 119 Random Glucose Calcium PTH Intact 26 10/07/16 10/08/16 10/08/16 18:06 06:18 07:00 WBC RBC Hgb Hct MCV MCHC RDW Plt Count MPV Neutrophils % Lymphocytes % Monocytes % Eosinophils % Basophils % INR PTT (Actin FS) Sodium 138 Potassium 4.5 Chloride 101 Carbon Dioxide 27 Anion Gap 10 BUN 44 H Creatinine 1.3 POC Glucometer 157 114 Random Glucose 99 Calcium 9.8 PTH Intact 10/08/16 10/08/16 10/08/16 07:00 08:48 12:30 WBC 15.5 H D RBC 4.79 Hgb 14.1 Hct 41.3 MCV 86.3 MCHC 34.0 RDW 14.2 Plt Count 199 MPV 8.9 Neutrophils % 96.7 H Lymphocytes % 1.9 L D Monocytes % 1.4 L Eosinophils % 0.0 Basophils % 0.0 INR 1.00 PTT (Actin FS) 26.7 L Sodium Potassium Chloride Carbon Dioxide Anion Gap BUN Creatinine POC Glucometer 105 Random Glucose Calcium PTH Intact Active Medications Generic Name Dose Route Start Last Admin Trade Name Freq PRN Reason Stop Dose Admin Amlodipine Besylate 10 mg 10/05/16 15:00 10/08/16 09:25 Norvasc - PO 10 mg DAILY TANIA Administration Dexamethasone Sodium Phosphate 6 mg 10/08/16 15:00 10/08/16 14:53 Decadron Injection - IVPB 6 mg Q6H-IV TANIA Administration Morphine Sulfate 3 mg 10/08/16 11:39 Morphine Injection - IVPUSH Q4H PRN PAIN Morphine Sulfate 15 mg 10/08/16 22:00 Ms Contin - PO BID TANIA Oxycodone HCl 10 mg 10/08/16 14:41 Roxicodone - PO Q4H PRN PAIN Polyethylene Glycol 17 gm 10/05/16 16:00 10/08/16 12:27 Miralax (For Daily Use) - PO Not Given DAILY TANIA CXR: prominent right hilium, possibility of hiliar mass MRI: Outside MRI of C-spine with C-6/C-7 mass with osseous destruction. Mass extends into spinal canal displacing the spinal cord to L of the midline and severe right neural foramina and right lateral recess narrowing. Has central spinal canal stenosis and discogenic disease as well. CT chest/abdomen/pelvis; large mass in right lower lobe, scattered nodules in lungs, hydrocele on right kidney, no abdominal pathology MRI brain:2.7x2.5x2 cm enhancing right cerebellar hemispheric mass lesion consistent with metastatic disease. MRI cervical spine;Neoplastic disease is seen involving the right lower cervical /upper thoracic spine as discussed with resultant mild to moderate leftward spinal cord displacement. This finding demonstrates no gross interval change in comparison to a previous MRI study of 09/08/2016 (performed at a different facility). Accurate comparison however is difficult as exam coverage on the previous study did not fully include the described neoplastic lesion. On the current exam there is probable identification of neoplastic disease extending contiguously into the right brachial plexus. There is also contiguous neoplastic erosion of the right first and second ribs posteriorly. ASSESSMENT/PLAN: 65 year old male with no PMH presents to the hospital referred from Dr. Claros office. He is complaining of right hand weakness and numbness that started in May.Today he is also complaining of pain in the cervical spine, weakness in right UE, especially in hand and pain in the tip of his fingers, and no sensation in 4th and 5th digits of R hand. The pt states that he lost 20 lbs in the past 5 months. He is admitted to med surg due to cervical mass. Right UE weakness due to cervical mass -cervical mass possibly from his lung due to smoking, -biopsy of the c spine done today -f/u Oncology consultation: called Dr. Claros, we will change dexamethasone to 6Q6H today and add pain medication, bigger dose of Oxycodone and Morphine, -f/u pain management metastatic disease to brain and lungs; -cerebellar mass will require radiation -neurological assesment -right lung mass and multiple nodules -continue steroids Hypertension; -no home meds, -will start Norvasc 10 mg Daily PAXTON; -possibly due to dehydration -no known baseline -avoid nephrotoxic substances DVT PPX: -SCDs F/E/N: No/No changes/Regular Disposition; Med surg. Problem List - Problems (1) Cervical spinal mass Code(s): G95.9 - DISEASE OF SPINAL CORD, UNSPECIFIED (2) Right hand weakness Code(s): M62.81 - MUSCLE WEAKNESS (GENERALIZED) (3) Mass of right lung Code(s): R91.8 - OTHER NONSPECIFIC ABNORMAL FINDING OF LUNG FIELD Visit type - Emergency Visit Emergency Visit: Yes ED Registration Date: 10/05/16 Care time: The patient presented to the Emergency Department on the above date and was hospitalized for further evaluation of their emergent condition. - New Patient This patient is new to me today: No - Critical Care Critical Care patient: No - Discharge Referral Referred to [facility] Med P.C.: No
--- NOTE | 2016-10-08 18:25 | CONSULT ---
Consult Consult Specialty:: pain medicien Referred by:: dr anton Reason for Consultation:: right arm pain - History of Present Illness Chief Complaint: right arm pain History of Present Illness: 66 year old man with a recent diagnosis of metastatic lung cancer. I was asked by Dr Anton to see the patient for his pain. I initially had seen the patient 3 weeks ago and ordered an MRI. He was told that he had a mass in his spine and that he needed to go to the ER which he refused. He was then referred to Dr Anton. He currently is feeling better with current pain medications regimen. - Smoking History Smoking history: Former smoker Have you smoked in the past 12 months: Yes Home Medications - Allergies Allergies/Adverse Reactions: Allergies Allergy/AdvReac Type Severity Reaction Status Date / Time No Known Allergies Allergy Verified 10/05/16 10:15 - Home Medications Home Medications: Ambulatory Orders NK [No Known Home Medication] 10/05/16 Physical Exam Vital Signs: Vital Signs Temperature 98.6 F 10/08/16 13:55 Pulse Rate 94 H 10/08/16 13:55 Respiratory Rate 19 10/08/16 13:55 Blood Pressure 149/93 10/08/16 13:55 O2 Sat by Pulse Oximetry (%) 97 10/08/16 12:48 Extremities: Yes: Other (right upper ext weakness and numbness) Labs: CBC, BMP 10/08/16 07:00 10/08/16 07:00 Assessment/Plan Right upper extremity pain secondary to right sided spinal metastatic lesion 1. Continue current pain medications 2. Oncology work up and treatment 3. Recall PRN
[2016-10-08] MEDS: morphine SO4 SUSTAINED ACTING 15 MG TABLET.SA PO SCH (21:49)
[2016-10-09] MEDS: DEXAMETHASONE SOD PHOSPHATE 4 MG/1 ML VIAL IVPB SCH ×4 (03:16→21:23)
[2016-10-09 07:15] LABS: MCH 29.5 pg (25.7-33.7); MCHC 34.6 g/dl (32.0-35.9); MEAN CELL VOLUME 85.4 fl (80-96); PLATELET COUNT 177 K/MM3 (134-434); RDW 13.9 % (11.9-15.9); WHITE BLOOD COUNT 10.4 K/mm3 (4.0-10.0)
[2016-10-09 07:39] LABS: CALCIUM 9.3 mg/dL (8.5-10.1)
[2016-10-09 07:40] LABS: CREATININE 1.4 mg/dL (0.7-1.3)
--- NOTE | 2016-10-09 09:27 | PN ---
Progress Note (short form) - Note Progress Note: NEUROSURGERY Stable overall Pain better; in good spirit S/p biopsy on iv steroid PE: AF, VSS General- unremakable, thin CV-RRR; Lungs- CTA; Abd- benign; Ext- no sign of DVT Neuro- A/A/Ox4 CN- intact, no Juni's; Motor- 5/5 except R hand and triceps 2/5; Sensation- decreased LT/PP R C7-8; DTR- decreased R triceps reflex, no LTS Path- pending Given multifocal disease, for systemic tx and XRT instead of surgical intervention Prognosis guarded-poor given extensive metastatic dz pending path D/w Dr. Botello
[2016-10-09] MEDS: amLODIPine BESYLATE 10 MG TABLET (FP) PO SCH (09:33)
[2016-10-09] MEDS: morphine SO4 SUSTAINED ACTING 15 MG TABLET.SA PO SCH ×2 (09:33→21:23)
[2016-10-09] MEDS: POLYETHYLENE GLYCOL 3350 119 GM BTL PO SCH (09:36)
--- NOTE | 2016-10-09 12:06 | PN ---
Teaching Attending Note Name of Resident: Myra Erazo ATTENDING PHYSICIAN STATEMENT I saw and evaluated the patient. I reviewed the resident's note and discussed the case with the resident. I agree with the resident's findings and plan as documented. SUBJECTIVE: no fever or chills , no pain after pain meds . no new weakness . OBJECTIVE: NAD CV: RRR, no MRG Lungs: CTAB ext : no edema Neuro : no facial droop, EOMI, round equal pupils , reactive to light , tongue at mid line, uvula at mid line , nl facial sensation . Strength : b/l LE 5/5 proximally and distally . RUE: 5/5 shoulder shrug. 5/5 shoulder abduction , 5/5 biceps , 4/5 triceps , 3/ 5 wrist flexion and 2/5 wrist extension ,0-1/5 hand (finger flexion and extension) LUE : 5/5 shoulder shrug. 5/5 shoulder abduction , 5/5 biceps , 5/5 triceps , 5/ 5 wrist, 5/5 hand. Sensation: RUE: Decreased sensation to light touch over fore arm, dorsum and palm, and 1,2, 3rd digit . Absent sensation over ventral 4th, and 5th digits. LUE, LLE, RLE: nl sensation to light touch DTR: 2+ biceps on R , 1+ R triceps, 2+ on L biceps and triceps ASSESSMENT AND PLAN: 66 y/o man with no medical care for a while who presented with R upper ext weakness. 1- RUE weakness, due to C spine mass with compression. Primary is likely lung cancer. 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 willmonitor off IVF 4- Hypercalcemia :resolved . PTH r P pending 5- HLOC Will get first radiation treatment [facility] . case was d/w Dr. Osuna
--- NOTE | 2016-10-09 12:19 | PN ---
Progress Note (short form) - Note Progress Note: Patient seen and examined Underwent biopsy Tolerated He reports his pain is better since when he came to the hospital continues on steroids Vital Signs Period Temp Pulse Resp BP Sys/Ricci Pulse Ox Last 24 Hr 98.2 F-98.6 F 82-94 18-20 121-159/68-106 97-97 HEENT: LO, EOM Intact Oropharynx: No thrush, No mucositis Cor: RSR, No murmurs, No gallops Lungs: Clear to P&A Abd: Soft, Normal bowel sounds, No organomegaly Ext:No significant edema; RUE - weak ;pain improved Skin: No rashes, Integument intact CBC, BMP 10/09/16 06:50 10/09/16 06:50 Active Medications Generic Name Dose Route Start Last Admin Trade Name Freq PRN Reason Stop Dose Admin Amlodipine Besylate 10 mg 10/05/16 15:00 10/09/16 09:33 Norvasc - PO 10 mg DAILY TANIA Administration Dexamethasone Sodium Phosphate 6 mg 10/08/16 15:00 10/09/16 09:35 Decadron Injection - IVPB 6 mg Q6H-IV TANIA Administration Morphine Sulfate 3 mg 10/08/16 11:39 Morphine Injection - IVPUSH Q4H PRN PAIN Morphine Sulfate 15 mg 10/08/16 22:00 10/09/16 09:33 Ms Contin - PO 15 mg BID TANIA Administration Oxycodone HCl 10 mg 10/08/16 14:41 Roxicodone - PO Q4H PRN PAIN Polyethylene Glycol 17 gm 10/05/16 16:00 10/09/16 09:36 Miralax (For Daily Use) - PO Not Given DAILY TANIA Impression: 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 Contin 15 mg BID Occupational therapy continue taper of steroids PT/OT
--- NOTE | 2016-10-09 14:22 | PN ---
Physical Exam: SUBJECTIVE: Patient seen and examined. He is still complaining of weakness in right upper extremity. Denies balance problems, vision problems, SOB. OBJECTIVE: Vital Signs Period Temp Pulse Resp BP Sys/Ricci Pulse Ox Last 24 Hr 98.2 F-98.6 F 82-93 18-20 121-145/68-92 97-97 GENERAL: The patient is awake, alert, and fully oriented, in no acute distress, cachectic. HEAD: Normal with no signs of trauma. EYES: PERRL, extraocular movements intact, sclera anicteric, conjunctiva clear. No ptosis. ENT: moist mucous membranes. NECK: Trachea midline, full range of motion, supple. LUNGS: Breath sounds equal, clear to auscultation bilaterally, no wheezes, no crackles, no accessory muscle use. HEART: Regular rate and rhythm, S1, S2 without murmur, rub or gallop. ABDOMEN: Soft, nontender, nondistended, normoactive bowel sounds, no guarding, no rebound, no hepatosplenomegaly, no masses. EXTREMITIES: no edema. NEUROLOGICAL: Cranial nerves II through XII grossly intact. Normal speech, gait not observed. Motor: RUE: elbow flexion 4/5, extension 3/5, adduction and abduction 5/5, wrist flexion 3/5, extension 4/5, fingers flexion and extension 1/5, LUE 5/ 5, LEs; 5/5, DTRs nl, Sensation; RUE: decreased in arm and forearm, hand. LUE, nl LEs nl. Romberg negative, Babinski negative. PSYCH: Normal mood, normal affect. SKIN: Warm, dry, normal turgor, no rashes or lesions noted. Laboratory Results - last 24 hr 10/07/16 10/08/16 10/09/16 06:30 21:43 06:29 WBC RBC Hgb Hct MCV MCHC RDW Plt Count MPV Sodium Potassium Chloride Carbon Dioxide Anion Gap BUN Creatinine POC Glucometer 139 136 Random Glucose Calcium PTH Intact 26 10/09/16 10/09/16 10/09/16 06:50 06:50 11:52 WBC 10.4 H D RBC 4.51 Hgb 13.3 Hct 38.5 MCV 85.4 MCHC 34.6 RDW 13.9 Plt Count 177 MPV 9.0 Sodium 140 Potassium 4.5 Chloride 103 Carbon Dioxide 29 Anion Gap 8 BUN 44 H Creatinine 1.4 H POC Glucometer 114 Random Glucose 135 H D Calcium 9.3 PTH Intact Active Medications Generic Name Dose Route Start Last Admin Trade Name Freq PRN Reason Stop Dose Admin Amlodipine Besylate 10 mg 10/05/16 15:00 10/09/16 09:33 Norvasc - PO 10 mg DAILY TANIA Administration Dexamethasone Sodium Phosphate 6 mg 10/08/16 15:00 10/09/16 09:35 Decadron Injection - IVPB 6 mg Q6H-IV TANIA Administration Morphine Sulfate 3 mg 10/08/16 11:39 Morphine Injection - IVPUSH Q4H PRN PAIN Morphine Sulfate 15 mg 10/08/16 22:00 10/09/16 09:33 Ms Contin - PO 15 mg BID TANIA Administration Oxycodone HCl 10 mg 10/08/16 14:41 Roxicodone - PO Q4H PRN PAIN Polyethylene Glycol 17 gm 10/05/16 16:00 10/09/16 09:36 Miralax (For Daily Use) - PO Not Given DAILY TANIA CXR: prominent right hilium, possibility of hiliar mass MRI: Outside MRI of C-spine with C-6/C-7 mass with osseous destruction. Mass extends into spinal canal displacing the spinal cord to L of the midline and severe right neural foramina and right lateral recess narrowing. Has central spinal canal stenosis and discogenic disease as well. CT chest/abdomen/pelvis; large mass in right lower lobe, scattered nodules in lungs, hydrocele on right kidney, no abdominal pathology MRI brain:2.7x2.5x2 cm enhancing right cerebellar hemispheric mass lesion consistent with metastatic disease. MRI cervical spine;Neoplastic disease is seen involving the right lower cervical /upper thoracic spine as discussed with resultant mild to moderate leftward spinal cord displacement. This finding demonstrates no gross interval change in comparison to a previous MRI study of 09/08/2016 (performed at a different facility). Accurate comparison however is difficult as exam coverage on the previous study did not fully include the described neoplastic lesion. On the current exam there is probable identification of neoplastic disease extending contiguously into the right brachial plexus. There is also contiguous neoplastic erosion of the right first and second ribs posteriorly. ASSESSMENT/PLAN: 65 year old male with no PMH presents to the hospital referred from Dr. Claros office. He is complaining of right hand weakness and numbness that started in May.Today he is also complaining of pain in the cervical spine, weakness in right UE, especially in hand and pain in the tip of his fingers, and no sensation in 4th and 5th digits of R hand. The pt states that he lost 20 lbs in the past 5 months. He is admitted to med surg due to cervical mass. Right UE weakness due to cervical mass -cervical mass possibly from his lung due to smoking, -biopsy of the c spine done, awaiting results -he will have his first radiation therapy before leaving the hospital -f/u Oncology consultation: called Dr. Claros, we will change dexamethasone to 6Q6H today and add pain medication, bigger dose of Oxycodone and Morphine, -f/u pain management recommendations metastatic disease to brain and lungs; -cerebellar mass will require radiation -neurological assessment -right lung mass and multiple nodules -continue steroids Hypertension; -no home meds, -will start Norvasc 10 mg Daily PAXTON; -possibly due to dehydration -no known baseline -avoid nephrotoxic substances DVT PPX: -SCDs F/E/N: No/No changes/Regular Disposition; Med surg, awaiting biopsy results and first radiation therapy next week Problem List - Problems (1) Cervical spinal mass Code(s): G95.9 - DISEASE OF SPINAL CORD, UNSPECIFIED (2) Right hand weakness Code(s): M62.81 - MUSCLE WEAKNESS (GENERALIZED) (3) Mass of right lung Code(s): R91.8 - OTHER NONSPECIFIC ABNORMAL FINDING OF LUNG FIELD Visit type - Emergency Visit Emergency Visit: Yes ED Registration Date: 10/05/16 Care time: The patient presented to the Emergency Department on the above date and was hospitalized for further evaluation of their emergent condition. - New Patient This patient is new to me today: No - Critical Care Critical Care patient: No - Discharge Referral Referred to [facility] Med P.C.: No
[2016-10-10] MEDS: DEXAMETHASONE SOD PHOSPHATE 4 MG/1 ML VIAL IVPB SCH ×4 (02:26→21:01)
[2016-10-10 08:37] LABS: BASOPHIL 0.1 % (0-2.0); MCH 29.1 pg (25.7-33.7); MCHC 33.6 g/dl (32.0-35.9); MEAN CELL VOLUME 86.6 fl (80-96); MEAN PLT VOLUME 8.7 fl (7.5-11.1); PLATELET COUNT 184 K/MM3 (134-434); RDW 13.9 % (11.9-15.9); WHITE BLOOD COUNT 15.9 K/mm3 (4.0-10.0)
[2016-10-10 09:01] LABS: CALCIUM 9.5 mg/dL (8.5-10.1); CREATININE 1.3 mg/dL (0.7-1.3)
[2016-10-10] MEDS: morphine SO4 SUSTAINED ACTING 15 MG TABLET.SA PO SCH ×2 (09:55→21:31)
[2016-10-10] MEDS: POLYETHYLENE GLYCOL 3350 119 GM BTL PO SCH (09:56)
[2016-10-10] MEDS: amLODIPine BESYLATE 10 MG TABLET (FP) PO SCH (09:56)
--- NOTE | 2016-10-10 10:26 | PN ---
Progress Note (short form) - Note Progress Note: NEUROSURGERY Did not sleep well Pain better; in good spirit S/p biopsy of paraspinal lesion on steroid PE: AF, VSS General- unremakable, thin CV-RRR; Lungs- CTA; Abd- benign; Ext- no sign of DVT Neuro- A/A/Ox4 CN- intact, no Juni's; Motor- 5/5 except R hand and triceps 2/5; Sensation- decreased LT/PP R C7-8; DTR- decreased R triceps reflex, no LTS Path- pending Given multifocal disease, for systemic tx and XRT instead of surgical intervention (pt does not wish to consider surgery anyway); gamma knife could be considered for cerebellar lesion Prognosis guarded-poor given extensive metastatic dz D/w Dr. Botello
[2016-10-10] MEDS ORDERED: PT OWN MED DRAWER 7, Y5N ONE (11:04)
--- NOTE | 2016-10-10 12:42 | PN ---
Progress Note (short form) - Note Progress Note: ONCOLOGY NOTE : Patient seen and examined Underwent biopsy Tolerated He reports his pain is better since when he came to the hospital continues on steroids mild constipation on prn laxatives Vital Signs Period Temp Pulse Resp BP Sys/Ricci Pulse Ox Last 24 Hr 98.4 F-98.7 F 87-92 18-20 139-152/89-94 97 HEENT: LO, EOM Intact Oropharynx: No thrush, No mucositis Cor: RSR, No murmurs, No gallops Lungs: Clear to P&A Abd: Soft, Normal bowel sounds, No organomegaly Ext:No significant edema; RUE - weak ;pain improved Skin: No rashes, Integument intact CBC, BMP 10/10/16 08:25 10/10/16 08:25 Active Medications Generic Name Dose Route Start Last Admin Trade Name Freq PRN Reason Stop Dose Admin Amlodipine Besylate 10 mg 10/05/16 15:00 10/10/16 09:56 Norvasc - PO 10 mg DAILY TANIA Administration Dexamethasone Sodium Phosphate 6 mg 10/08/16 15:00 10/10/16 09:56 Decadron Injection - IVPB 6 mg Q6H-IV TANIA Administration Morphine Sulfate 3 mg 10/08/16 11:39 Morphine Injection - IVPUSH Q4H PRN PAIN Morphine Sulfate 15 mg 10/08/16 22:00 10/10/16 09:55 Ms Contin - PO 15 mg BID TANIA Administration Oxycodone HCl 10 mg 10/08/16 14:41 Roxicodone - PO Q4H PRN PAIN Polyethylene Glycol 17 gm 10/05/16 16:00 10/10/16 09:56 Miralax (For Daily Use) - PO 17 gm DAILY TANIA Administration Impression: Lung mass, SPLITTER HAND-cerebellar mass, 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 Contin 15 mg BID Occupational therapy continue taper of steroids will add PPI for stress ulcer prophylaxis from iv steroids PT/OT
--- NOTE | 2016-10-10 15:06 | PN ---
Progress Note (short form) - Note Progress Note: Subjective:no fever or chills , weakness and numbness in RUE is still the same Objective: Vital Signs: Last Vital Signs Temp Pulse Resp BP Pulse Ox 98.4 F 82 18 160/90 97 10/10/16 10:00 10/10/16 10:00 10/10/16 10:00 10/10/16 10:00 10/10/16 09:00 Physical Exam: NAD CV: RRR, no MRG Lungs: CTAB ext : no edema Neuro : no facial droop, EOMI, round equal pupils , reactive to light , tongue at mid line, nl facial sensation . Strength : b/l LE 5/5 proximally and distally . RUE: 5/5 shoulder shrug. 5/5 shoulder abduction , 5/5 biceps , 4/5 triceps , 3/ 5 wrist flexion and 2/5 wrist extension ,0-1/5 hand (finger flexion and extension) LUE : 5/5 shoulder shrug. 5/5 shoulder abduction , 5/5 biceps , 5/5 triceps , 5/ 5 wrist, 5/5 hand. Sensation: RUE: Decreased sensation to light touch over fore arm, dorsum and palm, and 1,2, 3rd digit . Absent sensation over ventral 4th, and 5th digits. LUE, LLE, RLE: nl sensation to light touch DTR: 2+ biceps on R , 1+ R triceps, 2+ on L biceps and triceps Laboratory Results - last 24 hr 10/09/16 10/10/16 10/10/16 17:35 06:07 08:25 WBC 15.9 H D RBC 4.89 Hgb 14.2 Hct 42.3 MCV 86.6 MCHC 33.6 RDW 13.9 Plt Count 184 MPV 8.7 Neutrophils % 93.0 H Lymphocytes % 1.9 L Monocytes % 5.0 D Eosinophils % 0.0 Basophils % 0.1 D Sodium Potassium Chloride Carbon Dioxide Anion Gap BUN Creatinine POC Glucometer 151 136 Random Glucose Calcium 10/10/16 08:25 WBC RBC Hgb Hct MCV MCHC RDW Plt Count MPV Neutrophils % Lymphocytes % Monocytes % Eosinophils % Basophils % Sodium 139 Potassium 4.6 Chloride 102 Carbon Dioxide 26 Anion Gap 11 BUN 44 H Creatinine 1.3 POC Glucometer Random Glucose 104 D Calcium 9.5 ASSESSMENT AND PLAN: 66 y/o man with no medical care for a while who presented with R upper ext weakness. 1- RUE weakness, due to C spine mass with compression. Primary is likely lung cancer. - RTx to cervical lesion after tissue diagnosis - cont narcotics for pain - cont steroids , day 3 on dex 6 mg q6 hr 2- Metastatic cancer to brain and C spine ( likely form lung) -PAth not available at this time - likely RT for brain and C spine - Chemo options per ONc - appreciate all Recs 3- PAXTON : stable cr , might have CKD . w/u as out pt 4- Hypercalcemia :resolved . PTH r P pending 5- HLOC Will get first radiation treatment in house before dc . Visit type - Emergency Visit Emergency Visit: Yes ED Registration Date: 10/05/16 Care time: The patient presented to the Emergency Department on the above date and was hospitalized for further evaluation of their emergent condition. - New Patient This patient is new to me today: No - Critical Care Critical Care patient: No
[2016-10-10] MEDS: PANTOPRAZOLE 20 MG TABLET (FP) PO SCH (15:09)
[2016-10-11] MEDS: DEXAMETHASONE SOD PHOSPHATE 4 MG/1 ML VIAL IVPB SCH ×4 (03:02→21:54)
[2016-10-11] MEDS: morphine CARPU-JECT 4 MG/1 ML DISP.SYRIN IVPUSH PRN (04:24)
[2016-10-11] MEDS ORDERED: ONDANSETRON 4 MG/2 ML VIAL IVPB ONE (04:29)
[2016-10-11] MEDS ORDERED: ONDANSETRON 4 MG/2 ML VIAL ONE (04:36)
--- NOTE | 2016-10-11 09:32 | PN ---
Progress Note (short form) - Note Progress Note: NEUROSURGERY Resting comfortably S/p biopsy of paraspinal lesion, path pending PE: Tmax 98.8, AF, VSS General- unremakable, thin CV-RRR; Lungs- CTA; Abd- benign; Ext- no sign of DVT Neuro- A/A/Ox3 CN- intact, no Juni's; Motor- 5/5 except R hand and triceps 2/5; Sensation- decreased LT/PP R C7-8; DTR- decreased R triceps reflex, no LTS Multifocal metastatic disease, for systemic tx and XRT instead of surgical intervention (pt does not wish to consider surgery anyway); gamma knife could be considered for R cerebellar lesion (2.5 cm max diameter) Med onc/Rad on f/u Prognosis guarded-poor given extensive metastatic dz D/w medical team this am
[2016-10-11] MEDS ORDERED: PT OWN MED DRAWER 7, Y5N ONE ×2 (09:39→15:50)
[2016-10-11] MEDS: morphine SO4 SUSTAINED ACTING 15 MG TABLET.SA PO SCH ×2 (09:45→21:53)
[2016-10-11] MEDS: POLYETHYLENE GLYCOL 3350 119 GM BTL PO SCH ×2 (09:45→17:45)
[2016-10-11] MEDS: amLODIPine BESYLATE 10 MG TABLET (FP) PO SCH (09:46)
[2016-10-11] MEDS: PANTOPRAZOLE 20 MG TABLET (FP) PO SCH (09:46)
[2016-10-11 12:29] LABS: MCH 28.7 pg (25.7-33.7); MCHC 33.4 g/dl (32.0-35.9); MEAN PLT VOLUME 8.9 fl (7.5-11.1); PLATELET COUNT 156 K/MM3 (134-434); RDW 13.6 % (11.9-15.9); WHITE BLOOD COUNT 21.4 K/mm3 (4.0-10.0)
[2016-10-11 12:54] LABS: PLATELET ESTIMATE ADEQUATE (NORMAL)
--- NOTE | 2016-10-11 14:55 | PN ---
Physical Exam: SUBJECTIVE: Patient seen and examined. He is complaining of lower abdominal pain and constipation. He states that started yesterday when he hav some meat for diner. He has been passing gas and had BM yesterday. He denies N/V, fever, chills, dizziness, vision problems. OBJECTIVE: Vital Signs Period Temp Pulse Resp BP Sys/Ricci Pulse Ox Last 24 Hr 98.3 F-99.4 F 87-108 18-20 141-160/83-95 96-96 GENERAL: The patient is awake, alert, and fully oriented, in no acute distress, cachectic. HEAD: Normal with no signs of trauma. EYES:extraocular movements intact. No ptosis. ENT: moist mucous membranes. NECK: Trachea midline, full range of motion, supple. LUNGS: Breath sounds equal, clear to auscultation bilaterally, no wheezes, no crackles, no accessory muscle use. HEART: Regular rate and rhythm, S1, S2 without murmur, rub or gallop. ABDOMEN: Soft, tender to palpation in lower abdomen, guarding in RLQ, no rebound tenderness, nl BS, distended, normoactive bowel sounds, no hepatosplenomegaly, no masses. EXTREMITIES: no edema. NEUROLOGICAL: Cranial nerves II through XII grossly intact. Normal speech, gait not observed. Motor: RUE: elbow flexion 4/5, extension 3/5, adduction and abduction 5/5, wrist flexion 4/5, extension 4/5, fingers flexion and extension 1/5, LUE 5/ 5, LEs; 5/5, DTRs nl, Sensation; RUE: decreased in arm and forearm, hand. LUE, nl LEs nl. Romberg negative, Babinski negative. PSYCH: Normal mood, normal affect. SKIN: Warm, dry, normal turgor, no rashes. Laboratory Results - last 24 hr 10/08/16 10/08/16 10/10/16 17:25 17:28 17:27 WBC RBC Hgb Hct MCV MCHC RDW Plt Count MPV Neutrophils % Lymphocytes % Monocytes % Differential Comment Reactive Lymphocytes Platelet Estimate POC Glucometer 112 165 111 10/11/16 10/11/16 10/11/16 06:12 11:56 12:05 WBC 21.4 H D RBC 4.79 Hgb 13.7 Hct 41.2 MCV 86.0 MCHC 33.4 RDW 13.6 Plt Count 156 MPV 8.9 Neutrophils % 98.0 H Lymphocytes % Y Monocytes % 1.0 L Differential Comment Manual diff done Reactive Lymphocytes 1 Platelet Estimate Adequate POC Glucometer 124 118 Active Medications Generic Name Dose Route Start Last Admin Trade Name Freq PRN Reason Stop Dose Admin Amlodipine Besylate 10 mg 10/05/16 15:00 10/11/16 09:46 Norvasc - PO 10 mg DAILY TANIA Administration Dexamethasone Sodium Phosphate 6 mg 10/08/16 15:00 10/11/16 09:44 Decadron Injection - IVPB 6 mg Q6H-IV TANIA Administration Morphine Sulfate 3 mg 10/08/16 11:39 10/11/16 04:24 Morphine Injection - IVPUSH 3 mg Q4H PRN Administration PAIN Morphine Sulfate 15 mg 10/08/16 22:00 10/11/16 09:45 Ms Contin - PO 15 mg BID TANIA Administration Pantoprazole Sodium 20 mg 10/10/16 12:45 10/11/16 09:46 Protonix - PO 20 mg DAILY TANIA Administration Polyethylene Glycol 17 gm 10/05/16 16:00 10/11/16 09:45 Miralax (For Daily Use) - PO Not Given DAILY TANIA CXR: prominent right hilium, possibility of hiliar mass MRI: Outside MRI of C-spine with C-6/C-7 mass with osseous destruction. Mass extends into spinal canal displacing the spinal cord to L of the midline and severe right neural foramina and right lateral recess narrowing. Has central spinal canal stenosis and discogenic disease as well. CT chest/abdomen/pelvis; large mass in right lower lobe, scattered nodules in lungs, hydrocele on right kidney, no abdominal pathology MRI brain:2.7x2.5x2 cm enhancing right cerebellar hemispheric mass lesion consistent with metastatic disease. MRI cervical spine;Neoplastic disease is seen involving the right lower cervical /upper thoracic spine as discussed with resultant mild to moderate leftward spinal cord displacement. This finding demonstrates no gross interval change in comparison to a previous MRI study of 09/08/2016 (performed at a different facility). Accurate comparison however is difficult as exam coverage on the previous study did not fully include the described neoplastic lesion. On the current exam there is probable identification of neoplastic disease extending contiguously into the right brachial plexus. There is also contiguous neoplastic erosion of the right first and second ribs posteriorly. ASSESSMENT/PLAN: 65 year old male with no PMH presents to the hospital referred from Dr. Claros office. He is complaining of right hand weakness and numbness that started in May.Today he is also complaining of pain in the cervical spine, weakness in right UE, especially in hand and pain in the tip of his fingers, and no sensation in 4th and 5th digits of R hand. The pt states that he lost 20 lbs in the past 5 months. He is admitted to med surg for RUE weakness due to cervical mass. Right UE weakness due to cervical mass -cervical mass possibly from his lung due to smoking, -biopsy of the c spine done, awaiting results -he will have his first radiation therapy before leaving the hospital, discussed with Dr. 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; -cerebellar mass will require radiation, pt doesn't want surgery -neurological assessment -right lung mass and multiple nodules -continue steroids Hypercalcemia: -resolved -PTH rp pending Hypertension; -no home meds, -will start Norvasc 10 mg Daily Lower abdominal pain: -abdominal x ray to r/o obstruction -continue Miralax daily PAXTON; -possibly due to dehydration -no known baseline -avoid nephrotoxic substances DVT PPX: -SCDs -ambulating F/E/N: No/No changes/Regular Disposition; Med surg, awaiting biopsy results Problem List - Problems (1) Cervical spinal mass Code(s): G95.9 - DISEASE OF SPINAL CORD, UNSPECIFIED (2) Right hand weakness Code(s): M62.81 - MUSCLE WEAKNESS (GENERALIZED) (3) Mass of right lung Code(s): R91.8 - OTHER NONSPECIFIC ABNORMAL FINDING OF LUNG FIELD Visit type - Emergency Visit Emergency Visit: Yes ED Registration Date: 10/05/16 Care time: The patient presented to the Emergency Department on the above date and was hospitalized for further evaluation of their emergent condition. - New Patient This patient is new to me today: No - Critical Care Critical Care patient: No - Discharge Referral Referred to [facility] Med P.C.: No
[2016-10-11] MEDS ORDERED: LACTULOSE 20 GM/30 ML UDC (FOR ORAL USE ONLY) PO ONE (17:50)
--- NOTE | 2016-10-11 17:59 | PN ---
Teaching Attending Note Name of Resident: Myra Erazo ATTENDING PHYSICIAN STATEMENT I saw and evaluated the patient. I reviewed the resident's note and discussed the case with the resident. I agree with the resident's findings and plan as documented. SUBJECTIVE: No fever or chills. Has abd pain in lower abd , constipated , has no dysuria. OBJECTIVE: NAD CV: RRR, no MRG Lungs: CTAB ext : no edema Abd : soft, ND, NL BS , TTP in lower quadrants , no rebound tenderness or guarding Neuro : no facial droop, EOMI Strength : b/l LE 5/5 proximally and distally . RUE: 5/5 shoulder shrug. 5/5 shoulder abduction , 5/5 biceps , 4/5 triceps , 3/ 5 wrist flexion and 2/5 wrist extension ,0-1/5 hand (finger flexion and extension) LUE : 5/5 shoulder shrug. 5/5 shoulder abduction , 5/5 biceps , 5/5 triceps , 5/ 5 wrist, 5/5 hand. Sensation: RUE: Decreased sensation to light touch over fore arm, dorsum and palm, and 1,2, 3rd digit . Absent sensation over ventral 4th, and 5th digits. LUE, LLE, RLE: nl sensation to light touch DTR: 2+ biceps on R , 1+ R triceps, 2+ on L biceps and triceps ASSESSMENT AND PLAN: 66 y/o man with no medical care for a while who presented with R upper ext weakness. 1- RUE weakness, due to C spine mass with compression. Primary is lung cancer. - RTx to cervical lesion after tissue diagnosis - cont narcotics for pain - cont steroids , day 4 on dex 6 mg q6 hr 2- Abd pain : likely due to constipation . benign abd exam . KUB shows stool in R colon. on my read possible mild ileus aggressive treatment of constipation , miralax , senna/colace and lactulose 3- Metastatic Lung cancer to brain and C spine -prelim path indicates a lung primary, more info to follow - will need RT for brain and C spine - Chemo options per ONC - will d/w Rad onc tomorrow 3- PAXTON : stable cr , might have CKD . w/u as out pt 4- Hypercalcemia :resolved . PTH r P pending 5- HLOC Will get first radiation treatment in house before dc .
[2016-10-11] MEDS: oxyCODONE HCL 5 MG TABLET PO PRN (18:02)
--- NOTE | 2016-10-11 21:51 | PN ---
Progress Note (short form) - Note Progress Note: PAtient seen and examined rue weakness Last Vital Signs Temp Pulse Resp BP Pulse Ox 99.0 F 87 16 150/96 95 10/11/16 22:00 10/11/16 22:00 10/11/16 22:00 10/11/16 22:00 10/11/16 21:00 HEENT: LO, EOM Intact Oropharynx: No thrush, No mucositis Cor: RSR, No murmurs, No gallops Lungs: Clear to P&A Abd: Soft, Normal bowel sounds, No organomegaly Ext:EUE--3/ Abnormal Lab Results 10/11/16 12:05 WBC 21.4 H D Neutrophils % 98.0 H Monocytes % 1.0 L A/P 66 y/o patient with presumed lung cancer-- RUL mass/multiple lung nodules and C spine lesion with cord displacement /compression. RUE weakness mri brain---rt. cerebellae mass with edema and mild midline shift preliminary biopsy c/w lung cancer, awaiting subclassification to start RT to C-nancy thomas and ? brain lesion on decadron 6mg Q6h will need case management/social service agency director consult regarding disposition
[2016-10-11] MEDS: SENNOSIDES/DOCUSATE COMBO (SENNA PLUS) TABLET (UD) PO SCH (21:54)
[2016-10-11] MEDS: DEXAMETHASONE SOD PHOSPHATE 10 MG/1 ML VIAL IVPB SCH (21:55)
[2016-10-12] MEDS: DEXAMETHASONE SOD PHOSPHATE 10 MG/1 ML VIAL IVPB SCH ×4 (03:09→21:01)
[2016-10-12 08:24] LABS: MCH 29.2 pg (25.7-33.7); MEAN CELL VOLUME 85.9 fl (80-96); MEAN PLT VOLUME 9.3 fl (7.5-11.1); PLATELET COUNT 157 K/MM3 (134-434); WHITE BLOOD COUNT 19.2 K/mm3 (4.0-10.0)
[2016-10-12 08:36] LABS: CALCIUM 9.1 mg/dL (8.5-10.1); CREATININE 1.5 mg/dL (0.7-1.3)
[2016-10-12] MEDS ORDERED: PT OWN MED DRAWER 7, Y5N ONE (09:10)
[2016-10-12] MEDS: POLYETHYLENE GLYCOL 3350 119 GM BTL PO SCH (09:19)
[2016-10-12] MEDS: morphine SO4 SUSTAINED ACTING 15 MG TABLET.SA PO SCH ×2 (09:19→21:48)
[2016-10-12] MEDS: amLODIPine BESYLATE 10 MG TABLET (FP) PO SCH (09:19)
[2016-10-12] MEDS: SENNOSIDES/DOCUSATE COMBO (SENNA PLUS) TABLET (UD) PO SCH ×2 (09:20→21:49)
[2016-10-12] MEDS: PANTOPRAZOLE 20 MG TABLET (FP) PO SCH (09:20)
--- NOTE | 2016-10-12 10:01 | PN ---
Progress Note (short form) - Note Progress Note: Radiation Oncology RUE pain controlled on decadron/analgesics. Recalls having gait instability prior to admission. RUE weakness is stable. C-spine bx+ adenocarcinoma (neuroendocrine markers pending) Discussed B/A/R palliative RT to C-spine and posterior fossa. Discussed option of GKS upfront or as boost to cerebellar met. Pt elects to proceed w RT to spine/cerebellum +/- GKS boost. Will need to cont decadron during RT. Will proceed w RT planning. F/U pathology.
[2016-10-12] MEDS ORDERED: LACTULOSE 20 GM/30 ML UDC (FOR ORAL USE ONLY) PO ONE (12:00)
--- NOTE | 2016-10-12 14:10 | PN ---
Physical Exam: SUBJECTIVE: Patient seen and examined. He is complaining of constipation. No BM today and yesterday. Denies vision problems, dizziness, headache. OBJECTIVE: Vital Signs Period Temp Pulse Resp BP Sys/Ricci Pulse Ox Last 24 Hr 98.4 F-99.0 F 76-98 14-20 150-157/88-99 95-96 ENERAL: The patient is awake, alert, and fully oriented, in no acute distress, cachectic. HEAD: Normal with no signs of trauma. EYES:extraocular movements intact. No ptosis. ENT: moist mucous membranes. NECK: Trachea midline, full range of motion, supple. LUNGS: Breath sounds equal, clear to auscultation bilaterally, no wheezes, no crackles, no accessory muscle use. HEART: Regular rate and rhythm, S1, S2 without murmur, rub or gallop. ABDOMEN: Soft, mild tenderness in lower abdomen, no rebound tenderness, nl BS, distended, normoactive bowel sounds, no hepatosplenomegaly, no masses. EXTREMITIES: no edema. NEUROLOGICAL: Cranial nerves II through XII grossly intact. Normal speech, gait not observed. Motor: RUE: elbow flexion 4/5, extension 3/5, adduction and abduction 5/5, wrist flexion 4/5, extension 4/5, fingers flexion and extension 1/5, LUE 5/ 5, LEs; 5/5, DTRs nl, Sensation; RUE: decreased in arm and forearm, hand. LUE, nl LEs nl. Romberg negative, Babinski negative. PSYCH: Normal mood, normal affect. SKIN: Warm, dry, normal turgor, no rashes. Laboratory Results - last 24 hr 10/08/16 10/08/16 10/12/16 17:25 17:28 06:05 WBC RBC Hgb Hct MCV MCHC RDW Plt Count MPV Sodium Potassium Chloride Carbon Dioxide Anion Gap BUN Creatinine POC Glucometer 112 165 124 Random Glucose Calcium 10/12/16 10/12/16 07:45 07:45 WBC 19.2 H RBC 4.58 Hgb 13.4 Hct 39.3 MCV 85.9 MCHC 34.0 RDW 14.0 Plt Count 157 MPV 9.3 Sodium 140 Potassium 4.4 Chloride 101 Carbon Dioxide 29 Anion Gap 10 BUN 50 H Creatinine 1.5 H POC Glucometer Random Glucose 114 H Calcium 9.1 Active Medications Generic Name Dose Route Start Last Admin Trade Name Freq PRN Reason Stop Dose Admin Amlodipine Besylate 10 mg 10/05/16 15:00 10/12/16 09:19 Norvasc - PO 10 mg DAILY TANIA Administration Dexamethasone Sodium Phosphate 6 mg 10/11/16 21:15 10/12/16 09:18 Decadron Injection - IVPB 6 mg Q6H-IV TANIA Administration Magnesium Citrate 300 ml 10/12/16 14:15 Citroma - PO 10/12/16 14:16 ONCE ONE Morphine Sulfate 3 mg 10/08/16 11:39 10/11/16 04:24 Morphine Injection - IVPUSH 3 mg Q4H PRN Administration PAIN Morphine Sulfate 15 mg 10/08/16 22:00 10/12/16 09:19 Ms Contin - PO 15 mg BID TANIA Administration Oxycodone HCl 10 mg 10/11/16 17:04 10/11/16 18:02 Roxicodone - PO 10 mg Q3H PRN Administration SEVERE PAIN Pantoprazole Sodium 20 mg 10/10/16 12:45 10/12/16 09:20 Protonix - PO 20 mg DAILY TANIA Administration Polyethylene Glycol 17 gm 10/05/16 16:00 10/12/16 09:19 Miralax (For Daily Use) - PO 17 gm DAILY TANIA Administration Senna/Docusate Sodium 1 tablet 10/11/16 22:00 10/12/16 09:20 Pericolace - PO 1 tablet BID TANIA Administration CXR: prominent right hilium, possibility of hiliar mass MRI: Outside MRI of C-spine with C-6/C-7 mass with osseous destruction. Mass extends into spinal canal displacing the spinal cord to L of the midline and severe right neural foramina and right lateral recess narrowing. Has central spinal canal stenosis and discogenic disease as well. CT chest/abdomen/pelvis; large mass in right lower lobe, scattered nodules in lungs, hydrocele on right kidney, no abdominal pathology MRI brain:2.7x2.5x2 cm enhancing right cerebellar hemispheric mass lesion consistent with metastatic disease. MRI cervical spine;Neoplastic disease is seen involving the right lower cervical /upper thoracic spine as discussed with resultant mild to moderate leftward spinal cord displacement. This finding demonstrates no gross interval change in comparison to a previous MRI study of 09/08/2016 (performed at a different facility). Accurate comparison however is difficult as exam coverage on the previous study did not fully include the described neoplastic lesion. On the current exam there is probable identification of neoplastic disease extending contiguously into the right brachial plexus. There is also contiguous neoplastic erosion of the right first and second ribs posteriorly. ASSESSMENT/PLAN: 65 year old male with no PMH presents to the hospital referred from Dr. Claros office. He is complaining of right hand weakness and numbness that started in May.Today he is also complaining of pain in the cervical spine, weakness in right UE, especially in hand and pain in the tip of his fingers, and no sensation in 4th and 5th digits of R hand. The pt states that he lost 20 lbs in the past 5 months. He is admitted to med surg due to cervical mass. Right UE weakness due to cervical mass -cervical mass possibly from his lung due to smoking, -biopsy of the c spine done, awaiting results -he will have his first radiation therapy before leaving the hospital, will have it tomorrow -f/u Oncology consultation: dexamethasone to 6Q6H -f/u pain management recommendations metastatic disease to brain and lungs; -cerebellar mass will require radiation -neurological assessment -right lung mass and multiple nodules -continue steroids Constipation: -due to pain medications -Miralax -Lactulose -Magnesium Citrate Hypertension: -no home meds -will start Norvasc 10 mg Daily PAXTON; -possibly due to dehydration -no known baseline -avoid nephrotoxic substances DVT PPX: -SCDs F/E/N: No/No changes/Regular Disposition; Med surg, awaiting biopsy results and first radiation tomorrow Problem List - Problems (1) Cervical spinal mass Code(s): G95.9 - DISEASE OF SPINAL CORD, UNSPECIFIED (2) Right hand weakness Code(s): M62.81 - MUSCLE WEAKNESS (GENERALIZED) (3) Mass of right lung Code(s): R91.8 - OTHER NONSPECIFIC ABNORMAL FINDING OF LUNG FIELD Visit type - Emergency Visit Emergency Visit: Yes ED Registration Date: 10/05/16 Care time: The patient presented to the Emergency Department on the above date and was hospitalized for further evaluation of their emergent condition. - New Patient This patient is new to me today: No - Critical Care Critical Care patient: No - Discharge Referral Referred to [facility] Med [facility] No
[2016-10-12] MEDS ORDERED: MAGNESIUM CITRATE 300 ML BOTTLE PO ONE (14:15)
--- NOTE | 2016-10-12 15:27 | PN ---
Teaching Attending Note Name of Resident: Myra Erazo ATTENDING PHYSICIAN STATEMENT I saw and evaluated the patient. I reviewed the resident's note and discussed the case with the resident. I agree with the resident's findings and plan as documented. SUBJECTIVE: no fever or chills. pain and weakness in R UE is still the same . abd pain is much better after having two small BMs OBJECTIVE: NAD CV: RRR, no MRG Lungs: CTAB ext : no edema Abd : soft, ND, NL BS , TTP in LLQ , no rebound tenderness or guarding Neuro : no facial droop, EOMI Strength : RUE: 5/5 shoulder shrug. 5/5 shoulder abduction , 5/5 biceps , 4/5 triceps , 3/ 5 wrist flexion and 2/5 wrist extension ,0-1/5 hand (finger flexion and extension) LUE : 5/5 shoulder shrug. 5/5 shoulder abduction , 5/5 biceps , 5/5 triceps , 5/ 5 wrist, 5/5 hand. Sensation: RUE: Decreased sensation to light touch over fore arm, dorsum and palm, and 1,2, 3rd digit . Absent sensation over ventral 4th, and 5th digits. LUE, LLE, RLE: nl sensation to light touch DTR: 2+ biceps on R , 1+ R triceps, 2+ on L biceps and triceps ASSESSMENT AND PLAN: 66 y/o man with no medical care for a while who presented with R upper ext weakness. 1- RUE weakness, due to C spine mass with compression. Primary is lung cancer. Final path report pending - RTx to cervical lesion after tissue diagnosis . mapping tomorrow - cont narcotics for pain - cont steroids , day 5 on dex 6 mg q6 hr , will continue this dose for now 2- Abd pain : likely due to constipation . 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 Final report pending - RT for brain and C spine 3- Possible CKD . stable Cr . f/u with renal as out pt 4- Hypercalcemia :resolved . PTH r P pending 5- HLOC Will get first radiation treatment in house before dc . need VNS and supervisor home restoration service to be arranged at dc
--- NOTE | 2016-10-12 15:38 | PATH ---
Surgical Pathology Report Patient Name: OJ ARCHULETA Med. Rec. #: [id number] /Age/Gender: 1950 (Age: 66) / M Account: [id number] Location: [facility] MED/SURG Taken: 10/08/2016 Received: 10/08/2016 Reported: 10/12/2016 Physicians: Isaiah Brandon M.D. Inna Mcghee M.D. Femi Thomas M.D., PhD Jero Aburto M.D. 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 Comment: The sections show a malignant epithelial neoplasm comprised of intermediate to large size cells arranged in nesting and trabecular patterns. Mitotic figures and necrosis are present. Immunohistochemical stains performed and interpreted [facility] show the following: The tumor cells are positive for Ae1/Ae3 keratin, CK7, and TTF1 immunostains and a negative for p63, synaptophysin, chromogranin and CK20 immunostains. Mucicarmine stain is focally positive. Additional immunohistochemical stains performed at [place], [place] ([id number]) and interpreted [facility] shows the following: The tumor cells are focally positive for CD56 and Napsin A immunostains. TTF1 and Napsin A positivity, while are not entirely specific, is suggestive of pulmonary origin of the neoplasm. 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 Clinical and imaging correlations are suggested. The material is available for molecular studies. The case was preliminary discussed with Dr. Mcghee and Dr. Thomas on 10/12/16. Electronically Signed Chacho James M.D. Addendum Reported: 10/18/2016 Addendum Diagnosis PD-L1 IHC Analysis (KeyQuickProNotesuda) performed and interpreted at [place], [place] (specimen # [id number]) shows the following: Result: PD-L1 (Keytruda, clone 22C3 pharmDx): 0% tumor expression Interpretation: No expression (0% tumor proportion score) Reference ranges: TPS=Tumor Proportion Score=% of at least 100 viable tumor cells showing complete or partial membrane staining at =1+ TPS<1% =No expression TPS 1-49% = Low expression. Eligible for second-lone treatment with Keytruda (pembrolizimab) TPS=50% = High expression. Eligible for first or second-line treatment with Keytruda (pembrolizumab) The PD-L1, 22C3 pharmDx is FDA approved for use in the detection of PD-L1 in formalin-fixed paraffin embedded non-small cell lung carcinoma using [employer] 48 platform. This assay is indicated as an aid in identifying NSCLC patient for treatment with Keytruda (pembrolizimanb). Chacho James M.D. Addendum Reported: 10/18/2016 Addendum Diagnosis Lung NSCLC FISH studies performed and interpreted at [employer] [place], [place] ([id number] show the following: No evidence of MET (7q31) amplification. No evidence of a rearrangement of ALK (2p23). No evidence of a rearrangement of ROS1 (6q22). No evidence of a rearrangement of RET (10q11). Chacho James M.D. Addendum Reported: 10/19/2016 Addendum Diagnosis EGFR MUTATION ANALYSIS BY PCR PERFORMED AND INTERPRETED AT [employer] [place], [place] ([id number]) SHOWED THE FOLLOWING: RESULTS: NO MUTATION DETECTED INTERPRETATION: No mutations were identified in the sample provided for analysis. Fewer than 5% of non-small cell lung carcinoma patients without identifiable mutations are reported to be responsive to EGFR tyrosine kinase inhibitor therapies. Chacho James M.D. Gross Description Received in formalin, labeled "cervical spine" are 7 long, irregular to cylindrical soft tissue fragments ranging from 0.1-0.5 cm in greatest dimension. The specimens are submitted in toto in one cassette. 10/08/201610/08/2016
--- NOTE | 2016-10-12 15:43 | CONS ---
DATE OF CONSULTATION: 10/12/2016 PHYSICAL MEDICINE REHABILITATION CONSULTATION REFERRING PHYSICIAN: Aidan Claros M.D. HISTORY OF PRESENT ILLNESS: Patient is a 66-year-old male with past medical history of metastatic lung cancer with metastases to the brain and spine who was admitted with right upper extremity weakness, severe pain. On admission, patient had elevation in his calcium level at 10.3, elevated BUN 29, creatinine 1.7. WBCs were elevated at 15.4, but the patient is on steroids. Patient underwent MRI which showed neoplastic disease involving the lower right cervical and upper thoracic spine with mild to moderate displacement of the cord. Patient was placed on IV Decadron and is on morphine injection, oxycodone. He was seen in followup by Dr. Mullins who follows him as an outpatient, and the patient underwent neurosurgical evaluation as well as evaluation from radiation oncology. He is scheduled for radiation treatment. He did develop abdominal pain which is due to constipation, is currently on a bowel regimen. He underwent fluid hydration and his blood work did improve, with his BUN at 44 , but creatinine falling to 1.3. Calcium level normalized to 9.5 as of October 10. He had a CBC on October 11, which showed leukocytosis. Again, he is on IV steroids 21.4 WBC and hemoglobin 13.7 normal platelet count 156. Patient is not on any DVT prophylaxis but is mobile and ambulatory. Patient again is scheduled for rehabilitation, continues to complain of weakness, especially involving his right hand, but throughout his right upper extremity, lesser in his shoulder girdle. He is numb in the medial right forearm as well as his 4th and 5th digits to a lesser extent his 2nd and 3rd digits, but the pain has vastly improved. Again, he does not report any bouts. He had some tingling in his right lower extremity prior, but no tingling or numbness in the lower extremities, and the abdominal pain has improved. PAST MEDICAL AND SURGICAL HISTORY: As above. Patient apparently had what he thought was a pinched nerve and eventually found to have metastatic lung cancer and reportedly metastases to the brain. SOCIAL HISTORY: Lives with his sister in a private house with stairs, premorbidly independent. Current function, he is ambulatory but has difficulty with ADLs because of his right upper extremity. REVIEW OF SYSTEMS: No lightheadedness or dizziness. No blurry vision, dull vision. No nausea, vomiting. Currently no difficulty swallowing. No shortness of breath or chest pain. Again, he does have neck pain, but no real pain radiating into the right upper extremity, numbness, tingling involving the right upper extremity but none in the left upper extremity or lower extremities. No current complaints of gait instability. He does have some constipation which is improved on medication, Miralax, and Cynthia-Colace. He has had weight loss from 140 to 127. No fever, chills. PHYSICAL EXAMINATION: General: Thin man seen by sitting, standing, and ambulating. He is slightly anxious but in no acute distress. HEENT: Normocephalic, atraumatic. Extraocular muscles appear intact. He has no obvious facial weakness. No oral ulcers, dry mucous membranes. Neck: He has slightly reduced cervical range of motion and kyphosis. Mild tenderness on the right cervical paraspinals and upper trapezius, but not palpable spasm, and the range of motion to about 50 to 60 degrees of rotation without any significant pain. Extremities: Without any pitting edema or calf tenderness. Skin: Without any rash or breakdown. Neuromuscular: He is awake, alert. Seems to have good insight into his medical conditions. He is oriented x3. Cranial nerves 2-12 are grossly intact. He has weakness throughout the right upper extremity, especially distally 1/5 in the hand intrinsic and thenar muscles. Better strength proximally elbow extensors 4/5 shoulder girdle 4-/5, left upper extremity 5/5, and lower extremity is 5/5. Brief reflex on the right upper extremity compared to the left, but normal in the lower extremities. He has good standing balance and steady gait heel to toe. Diminished sensation 4th and 5th digits, medial forearm to pinprick, to a lesser degree in the 2nd and 3rd digits, and normal sensation in the 1st digit of the right upper extremity, throughout his left upper extremity, and bilateral lower extremities to pinprick. OVERALL IMPRESSION: 1. Deficits in activities of daily living. 2. Right upper extremity weakness with underlying metastatic lung cancer to the lower cervical and upper thoracic spine. 3. Reported brain metastatic disease. 4. Abdominal pain, improved, status post constipation. 5. Status post hyperkalemia. 6. Prerenal azotemia with elevation BUN and creatinine, now improved creatinine but remained elevation BUN on last blood work 2 days ago. 7. Elevated risks for deep vein thrombosis due to immobility and cancer. PLAN/SUGGESTION: 1. Will have physical therapy, see the patient at the bedside for range of motion, strength in the right upper extremities and also to make sure his balance and gait appear steady. 2. Out of bed to chair. 3. Would consider DVT prophylaxis with subcutaneous heparin or Lovenox until discharged from the hospital. 4. Skin precaution. 5. Continue pain medication. 6. If he develops worsening radicular pain, would consider adding gabapentin or Lyrica, but currently pain seems well controlled. 7. Bowel regimen. Again, he is at high risk for constipation. Continue Miralax and Cynthia-Colace which seems to have improved. 8. Outpatient rehabilitation physical therapy once patient has been discharged. Thank you for this referral. JANA DUARTE M.D. [id number] MTDD
--- NOTE | 2016-10-12 17:08 | PN ---
Progress Note (short form) - Note Progress Note: Patient seen and examined. Preliminary path with adenoca- Final stains to be performed. RT to begun to C- spine and cerebellum. Pain better controlled . Numbness of RUE Complains of constipation - secondary to analgesics. Last Vital Signs Temp Pulse Resp BP Pulse Ox 98.6 F 92 H 16 155/98 96 10/12/16 14:10 10/12/16 14:10 10/12/16 14:10 10/12/16 14:10 10/12/16 09:00 HEENT: LO, EOM Intact Oropharynx: No thrush, No mucositis Neck: Supple Cor: RSR, No murmurs, No gallops Lungs: Clear to P&A Abd: Soft, Normal bowel sounds, No organomegaly Ext:No significant edema Skin: No rashes, Integument intact CBC, BMP 10/12/16 07:45 10/12/16 07:45 Current Medications Generic Name Dose Route Start Last Admin Trade Name Freq PRN Reason Stop Dose Admin Amlodipine Besylate 10 mg 10/05/16 15:00 10/12/16 09:19 Norvasc - PO 10 mg DAILY TANIA Administration Dexamethasone Sodium Phosphate 6 mg 10/11/16 21:15 10/12/16 15:24 Decadron Injection - IVPB 6 mg Q6H-IV TANIA Administration Morphine Sulfate 3 mg 10/08/16 11:39 10/11/16 04:24 Morphine Injection - IVPUSH 3 mg Q4H PRN Administration PAIN Morphine Sulfate 15 mg 10/08/16 22:00 10/12/16 09:19 Ms Contin - PO 15 mg BID TANIA Administration Oxycodone HCl 10 mg 10/11/16 17:04 10/11/16 18:02 Roxicodone - PO 10 mg Q3H PRN Administration SEVERE PAIN Pantoprazole Sodium 20 mg 10/10/16 12:45 10/12/16 09:20 Protonix - PO 20 mg DAILY TANIA Administration Polyethylene Glycol 17 gm 10/05/16 16:00 10/12/16 09:19 Miralax (For Daily Use) - PO 17 gm DAILY TANIA Administration Senna/Docusate Sodium 1 tablet 10/11/16 22:00 10/12/16 09:20 Pericolace - PO 1 tablet BID TANIA Administration ROS- no headaches, diplopia, epistais, dysphagia, chest pains, SOB,+ constipation, no melena, hematochezia, dysuria, hematuria Impresssion: 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 Plan: RT to C-spine and cerebellar lesion Await final path Consider chemotherapy in future. Analgesics seem appropriate
[2016-10-12] MEDS ORDERED: SODIUM PHOSPHATE/NA BIPHOS 133 ML ENEMA PR ONE (17:37)
[2016-10-12] MEDS ORDERED: DEXAMETHASONE SOD PHOSPHATE 10 MG/1 ML VIAL IVPB SCH (21:15)
[2016-10-13] MEDS: DEXAMETHASONE SOD PHOSPHATE 10 MG/1 ML VIAL IVPB SCH ×4 (03:06→21:50)
[2016-10-13] MEDS: morphine SO4 SUSTAINED ACTING 15 MG TABLET.SA PO SCH ×2 (09:26→21:50)
[2016-10-13] MEDS: POLYETHYLENE GLYCOL 3350 119 GM BTL PO SCH (09:26)
[2016-10-13] MEDS: SENNOSIDES/DOCUSATE COMBO (SENNA PLUS) TABLET (UD) PO SCH ×2 (09:27→21:49)
[2016-10-13] MEDS: PANTOPRAZOLE 20 MG TABLET (FP) PO SCH (09:27)
[2016-10-13] MEDS: amLODIPine BESYLATE 10 MG TABLET (FP) PO SCH (09:27)
--- NOTE | 2016-10-13 15:56 | PN ---
Physical Exam: SUBJECTIVE: Patient seen and examined. He is complaining of bloating. He had BM today. He denies abdominal pain, N/V, fever, chills. OBJECTIVE: Vital Signs Period Temp Pulse Resp BP Sys/Ricci Pulse Ox Last 24 Hr 98 F-98.8 F 93-99 16-20 157-165/96-106 95-96 ENERAL: The patient is awake, alert, and fully oriented, in no acute distress, cachectic. HEAD: Normal with no signs of trauma. EYES:extraocular movements intact. No ptosis. ENT: moist mucous membranes. NECK: Trachea midline, full range of motion, supple. LUNGS: Breath sounds equal, clear to auscultation bilaterally, no wheezes, no crackles, no accessory muscle use. HEART: Regular rate and rhythm, S1, S2 without murmur, rub or gallop. ABDOMEN: Soft, mild tenderness in lower abdomen, no rebound tenderness, nl BS, distended, normoactive bowel sounds, no hepatosplenomegaly, no masses. EXTREMITIES: no edema. NEUROLOGICAL: Cranial nerves II through XII grossly intact. Normal speech, gait not observed. Motor: RUE: elbow flexion 4/5, extension 3/5, adduction and abduction 5/5, wrist flexion 4/5, extension 4/5, fingers flexion and extension 1/5, LUE 5/ 5, LEs; 5/5, DTRs nl, Sensation; RUE: decreased in arm and forearm, hand. LUE, nl LEs nl. Romberg negative, Babinski negative. PSYCH: Normal mood, normal affect. SKIN: Warm, dry, normal turgor, no rashes. Laboratory Results - last 24 hr 10/13/16 11:48 POC Glucometer 125 Active Medications Generic Name Dose Route Start Last Admin Trade Name Freq PRN Reason Stop Dose Admin Amlodipine Besylate 10 mg 10/05/16 15:00 10/13/16 09:27 Norvasc - PO 10 mg DAILY TANIA Administration Dexamethasone Sodium Phosphate 6 mg 10/11/16 21:15 10/13/16 15:26 Decadron Injection - IVPB 6 mg Q6H-IV TANIA Administration Morphine Sulfate 3 mg 10/08/16 11:39 10/11/16 04:24 Morphine Injection - IVPUSH 3 mg Q4H PRN Administration PAIN Morphine Sulfate 15 mg 10/08/16 22:00 10/13/16 09:26 Ms Contin - PO 15 mg BID TANIA Administration Oxycodone HCl 10 mg 10/11/16 17:04 10/11/16 18:02 Roxicodone - PO 10 mg Q3H PRN Administration SEVERE PAIN Pantoprazole Sodium 20 mg 10/10/16 12:45 10/13/16 09:27 Protonix - PO 20 mg DAILY TANIA Administration Polyethylene Glycol 17 gm 10/05/16 16:00 10/13/16 09:26 Miralax (For Daily Use) - PO 17 gm DAILY TANIA Administration Senna/Docusate Sodium 1 tablet 10/11/16 22:00 10/13/16 09:27 Pericolace - PO 1 tablet BID TANIA Administration CXR: prominent right hilium, possibility of hiliar mass MRI: Outside MRI of C-spine with C-6/C-7 mass with osseous destruction. Mass extends into spinal canal displacing the spinal cord to L of the midline and severe right neural foramina and right lateral recess narrowing. Has central spinal canal stenosis and discogenic disease as well. CT chest/abdomen/pelvis; large mass in right lower lobe, scattered nodules in lungs, hydrocele on right kidney, no abdominal pathology MRI brain:2.7x2.5x2 cm enhancing right cerebellar hemispheric mass lesion consistent with metastatic disease. MRI cervical spine;Neoplastic disease is seen involving the right lower cervical /upper thoracic spine as discussed with resultant mild to moderate leftward spinal cord displacement. This finding demonstrates no gross interval change in comparison to a previous MRI study of 09/08/2016 (performed at a different facility). Accurate comparison however is difficult as exam coverage on the previous study did not fully include the described neoplastic lesion. On the current exam there is probable identification of neoplastic disease extending contiguously into the right brachial plexus. There is also contiguous neoplastic erosion of the right first and second ribs posteriorly. ASSESSMENT/PLAN: 65 year old male with no PMH presents to the hospital referred from Dr. Claros office. He is complaining of right hand weakness and numbness that started in May.Today he is also complaining of pain in the cervical spine, weakness in right UE, especially in hand and pain in the tip of his fingers, and no sensation in 4th and 5th digits of R hand. The pt states that he lost 20 lbs in the past 5 months. He is admitted to med surg due to cervical mass. 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 and lungs; -cerebellar mass will require radiation -neurological assessment -right lung mass and multiple nodules -continue steroids Constipation: -due to pain medications -Miralax -Pericolace Hypertension: -no home meds -started Norvasc 10 mg Daily CKD: -no known baseline -avoid nephrotoxic substances DVT PPX: -SCDs F/E/N: No/No changes/Regular Disposition; Med surg, radiation tomorrow, dc after first RT, visiting nurse arranged Problem List - Problems (1) Cervical spinal mass Code(s): G95.9 - DISEASE OF SPINAL CORD, UNSPECIFIED (2) Right hand weakness Code(s): M62.81 - MUSCLE WEAKNESS (GENERALIZED) (3) Mass of right lung Code(s): R91.8 - OTHER NONSPECIFIC ABNORMAL FINDING OF LUNG FIELD Visit type - Emergency Visit Emergency Visit: Yes ED Registration Date: 10/05/16 Care time: The patient presented to the Emergency Department on the above date and was hospitalized for further evaluation of their emergent condition. - New Patient This patient is new to me today: No - Critical Care Critical Care patient: No - Discharge Referral Referred to [facility] No
--- NOTE | 2016-10-13 16:13 | PN ---
Progress Note (short form) - Note Progress Note: Radiation Oncology Pt was scheduled for RT planning scan in office today but unfortunately machine was out of service, currently being repaired. If out of service tomorrow, Dr. Brandon (radiology) has agreed to facilitate the planning CT scan in the hospital tomorrow. Will coordinate staff for 3D conformal planning needed due to the extensive disease in spine/brachial plexus. Will plan to proceed w RT to spine and cerebellum. Cont decadron, neurologic monitoring, PT.
[2016-10-13] MEDS ORDERED: ONDANSETRON 4 MG/2 ML VIAL ONE (16:14)
[2016-10-13] MEDS: morphine CARPU-JECT 4 MG/1 ML DISP.SYRIN IVPUSH PRN (16:22)
[2016-10-13] MEDS: ONDANSETRON 4 MG/2 ML VIAL IVPB PRN (16:23)
--- NOTE | 2016-10-13 19:38 | PN ---
Teaching Attending Note Name of Resident: Myra Erazo ATTENDING PHYSICIAN STATEMENT I saw and evaluated the patient. I reviewed the resident's note and discussed the case with the resident. I agree with the resident's findings and plan as documented. SUBJECTIVE: Patient is c/o nausea or vomiting. OBJECTIVE: Vital Signs Temperature 98.2 F 10/13/16 14:00 Pulse Rate 99 H 10/13/16 14:00 Respiratory Rate 16 10/13/16 14:00 Blood Pressure 158/106 10/13/16 14:00 O2 Sat by Pulse Oximetry (%) 96 10/13/16 09:00 ENERAL: The patient is awake, alert, and fully oriented, in no acute distress, cachectic. HEAD: Normal with no signs of trauma. EYES:extraocular movements intact. ENT: moist mucous membranes. NECK: Trachea midline, full range of motion, supple. LUNGS: Breath sounds equal, clear to auscultation bilaterally, no wheezes, no crackles, no accessory muscle use. HEART: Regular rate and rhythm, S1, S2 without murmur, rub or gallop. ABDOMEN: Soft, mild tenderness in lower abdomen, no rebound tenderness, nl BS, distended, normoactive bowel sounds, no hepatosplenomegaly, no masses. EXTREMITIES: no edema. No clubbing, no cyanosis NEUROLOGICAL: Cranial nerves II through XII grossly intact. Normal speech, gait not observed. PSYCH: Normal mood, normal affect. SKIN: Warm, dry, normal turgor, no rashes. CBCD WBC 19.2 K/mm3 (4.0-10.0) H 10/12/16 07:45 RBC 4.58 M/mm3 (4.00-5.60) 10/12/16 07:45 Hgb 13.4 GM/dL (11.7-16.9) 10/12/16 07:45 Hct 39.3 % (35.4-49) 10/12/16 07:45 MCV 85.9 fl (80-96) 10/12/16 07:45 MCHC 34.0 g/dl (32.0-35.9) 10/12/16 07:45 RDW 14.0 % (11.9-15.9) 10/12/16 07:45 Plt Count 157 K/MM3 (134-434) 10/12/16 07:45 MPV 9.3 fl (7.5-11.1) 10/12/16 07:45 CMP Sodium 140 mmol/L (136-145) 10/12/16 07:45 Potassium 4.4 mmol/L (3.5-5.1) 10/12/16 07:45 Chloride 101 mmol/L (98-107) 10/12/16 07:45 Carbon Dioxide 29 mmol/L (21-32) 10/12/16 07:45 Anion Gap 10 (8-16) 10/12/16 07:45 BUN 50 mg/dL (7-18) H 10/12/16 07:45 Creatinine 1.5 mg/dL (0.7-1.3) H 10/12/16 07:45 Creat Clearance w eGFR 40.40 (>60) 10/05/16 10:45 Random Glucose 114 mg/dL (74-106) H 10/12/16 07:45 Calcium 9.1 mg/dL (8.5-10.1) 10/12/16 07:45 Total Bilirubin 0.5 mg/dL (0.2-1.0) 10/05/16 10:45 AST 13 U/L (15-37) L 10/05/16 10:45 ALT 15 U/L (12-78) 10/05/16 10:45 Alkaline Phosphatase 71 U/L (45-117) 10/05/16 10:45 Total Protein 7.2 g/dl (6.4-8.2) 10/05/16 10:45 Albumin 4.1 g/dl (3.4-5.0) 10/05/16 10:45 Current Medications Generic Name Dose Route Start Last Admin Trade Name Freq PRN Reason Stop Dose Admin Amlodipine Besylate 10 mg 10/05/16 15:00 10/13/16 09:27 Norvasc - PO 10 mg DAILY TANIA Administration Dexamethasone Sodium Phosphate 6 mg 10/11/16 21:15 10/13/16 15:26 Decadron Injection - IVPB 6 mg Q6H-IV TANIA Administration Morphine Sulfate 3 mg 10/08/16 11:39 10/13/16 16:22 Morphine Injection - IVPUSH 3 mg Q4H PRN Administration PAIN Morphine Sulfate 15 mg 10/08/16 22:00 10/13/16 09:26 Ms Contin - PO 15 mg BID TANIA Administration Ondansetron HCl 4 mg 10/13/16 16:17 10/13/16 16:23 Zofran Injection IVPB 4 mg Q4H PRN Administration NAUSEA AND/OR VOMITING Oxycodone HCl 10 mg 10/11/16 17:04 10/11/16 18:02 Roxicodone - PO 10 mg Q3H PRN Administration SEVERE PAIN Pantoprazole Sodium 20 mg 10/10/16 12:45 10/13/16 09:27 Protonix - PO 20 mg DAILY TANIA Administration Polyethylene Glycol 17 gm 10/05/16 16:00 10/13/16 09:26 Miralax (For Daily Use) - PO 17 gm DAILY TANIA Administration Senna/Docusate Sodium 1 tablet 10/11/16 22:00 10/13/16 09:27 Pericolace - PO 1 tablet BID TANIA Administration Home Medications Medication Instructions Recorded NK [No Known Home Medication] 10/05/16 ASSESSMENT AND PLAN: 66 y/o man with no medical care for a while who presented with R upper ext weakness. # Acute RUE weakness, due to C spine mass with compression. Primary is lung cancer. Final path report is in the chart - RTx to cervical lesion after tissue diagnosis . mapping is still pending. cont narcotics for pain - cont steroids , day 6 on dex 6 mg q6 hr , will continue this dose for now # Abd pain : likely due to constipation . Pericolace bid , Miralax daily # Lung cancer primary mets to brain and C spine # Acute RF over chronic f/u with renal as out pt # Acute Hypercalcemia :resolved Waiting for Mapping for Rtx therapy before dc .need VNS and tourist home keeper to be arranged at dc
--- NOTE | 2016-10-13 20:44 | PN ---
Progress Note (short form) - Note Progress Note: PAtient seen and examined rue weakness Last Vital Signs Temp Pulse Resp BP Pulse Ox 98.2 F 99 H 16 158/106 96 10/13/16 14:00 10/13/16 14:00 10/13/16 14:00 10/13/16 14:00 10/13/16 09:00 HEENT: LO, EOM Intact Oropharynx: No thrush, No mucositis Cor: RSR, No murmurs, No gallops Lungs: Clear to P&A Abd: Soft, Normal bowel sounds, No organomegaly Ext:EUE--3/5 Current Medications Amlodipine Besylate (Norvasc -) 10 mg PO DAILY [facility] Last Admin: 10/13/16 09:27 Dose: 10 mg Dexamethasone Sodium Phosphate (Decadron Injection -) 6 mg IVPB Q6H-IV [facility] Last Admin: 10/13/16 15:26 Dose: 6 mg Morphine Sulfate (Morphine Injection -) 3 mg IVPUSH Q4H PRN PRN Reason: PAIN Last Admin: 10/13/16 16:22 Dose: 3 mg Morphine Sulfate (Ms Contin -) 15 mg PO BID [facility] Last Admin: 10/13/16 09:26 Dose: 15 mg Ondansetron HCl (Zofran Injection) 4 mg IVPB Q4H PRN PRN Reason: NAUSEA AND/OR VOMITING Last Admin: 10/13/16 16:23 Dose: 4 mg Oxycodone HCl (Roxicodone -) 10 mg PO Q3H PRN PRN Reason: SEVERE PAIN Last Admin: 10/11/16 18:02 Dose: 10 mg Pantoprazole Sodium (Protonix -) 20 mg PO DAILY [facility] Last Admin: 10/13/16 09:27 Dose: 20 mg Polyethylene Glycol (Miralax (For Daily Use) -) 17 gm PO DAILY [facility] Last Admin: 10/13/16 09:26 Dose: 17 gm Senna/Docusate Sodium (Pericolace -) 1 tablet PO BID [facility] Last Admin: 10/13/16 09:27 Dose: 1 tablet Labs reviewed A/P 66 y/o patient with presumed lung cancer-- RUL mass/multiple lung nodules and C spine lesion with cord displacement /compression. RUE weakness mri brain---rt. 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
[2016-10-14] MEDS: DEXAMETHASONE SOD PHOSPHATE 10 MG/1 ML VIAL IVPB SCH ×4 (03:29→21:36)
[2016-10-14] MEDS: morphine SO4 SUSTAINED ACTING 15 MG TABLET.SA PO SCH ×2 (10:11→21:36)
[2016-10-14] MEDS: POLYETHYLENE GLYCOL 3350 119 GM BTL PO SCH (10:12)
[2016-10-14] MEDS: SENNOSIDES/DOCUSATE COMBO (SENNA PLUS) TABLET (UD) PO SCH ×2 (10:13→21:35)
[2016-10-14] MEDS: amLODIPine BESYLATE 10 MG TABLET (FP) PO SCH (10:13)
[2016-10-14] MEDS: PANTOPRAZOLE 20 MG TABLET (FP) PO SCH (10:13)
[2016-10-14] MEDS: ONDANSETRON 4 MG/2 ML VIAL IVPB PRN (15:26)
--- NOTE | 2016-10-14 15:30 | CONSULT ---
Consult Consult Specialty:: Nephrology Reason for Consultation:: CKD - History of Present Illness Chief Complaint: initially sent to hospital for evaluation of cord mass History of Present Illness: Pt is a 66 year old male who presented to the ER with right arm numbness. He has a mass in the cervical spine. I was called to evaluate him for CKD and elevated creatinine. He denies history of kidney disease. He is not very talkative today and says he just wants to sleep. He denies shortness of breath. He denies dysuria or hematuria. He was also hypercalcemic on admission. He will be getting radiation. - History Source History Provided By: Patient, Medical Record - Past Medical History Cardio/Vascular: Yes: HTN Heme/Onc: Yes: Cancer - Smoking History Smoking history: Former smoker Have you smoked in the past 12 months: Yes Home Medications - Allergies Allergies/Adverse Reactions: Allergies Allergy/AdvReac Type Severity Reaction Status Date / Time No Known Allergies Allergy Verified 10/05/16 10:15 - Home Medications Home Medications: Ambulatory Orders NK [No Known Home Medication] 10/05/16 Family Disease History - Family Disease History Family History: Denies Review of Systems - Review of Systems Constitutional: reports: Loss of Appetite, Malaise, Unintentional Wgt. Loss Eyes: reports: No Symptoms HENT: reports: No Symptoms Neck: reports: No Symptoms Cardiovascular: reports: No Symptoms Respiratory: reports: No Symptoms Gastrointestinal: reports: No Symptoms Genitourinary: reports: No Symptoms Musculoskeletal: reports: Muscle Cramps, Muscle Weakness Integumentary: reports: No Symptoms Neurological: reports: Numbness Endocrine: reports: No Symptoms Hematology/Lymphatic: reports: No Symptoms Psychiatric: reports: No Symptoms Physical Exam Vital Signs: Vital Signs Temperature 98.2 F 10/14/16 15:17 Pulse Rate 80 10/14/16 15:17 Respiratory Rate 16 10/14/16 15:17 Blood Pressure 138/78 10/14/16 15:17 O2 Sat by Pulse Oximetry (%) 96 10/14/16 09:00 Constitutional: Yes: Calm Eyes: Yes: Conjunctiva Clear HENT: Yes: Atraumatic Neck: Yes: Supple Cardiovascular: Yes: S1, S2 Respiratory: Yes: CTA Bilaterally Gastrointestinal: Yes: Soft Renal/: Yes: WNL Edema: No Neurological: Yes: Oriented Labs: CBC, BMP 10/12/16 07:45 10/12/16 07:45 Laboratory Tests 10/05/16 10/07/16 10/08/16 20:51 06:30 07:00 WBC Hgb Creatinine 1.4 H 1.3 Urine Color Yellow Urine Appearance Clear Urine pH 5.0 Ur Specific Alexander 1.016 Urine Protein 1+ H Urine Glucose (UA) Negative Urine Ketones Negative Urine Blood 1+ H 10/09/16 10/10/16 10/10/16 06:50 08:25 08:25 WBC 15.9 H D Hgb Creatinine 1.4 H 1.3 Urine Color Urine Appearance Urine pH Ur Specific Alexander Urine Protein Urine Glucose (UA) Urine Ketones Urine Blood 10/11/16 10/12/16 10/12/16 12:05 07:45 07:45 WBC 21.4 H D 19.2 H Hgb 13.4 Creatinine 1.5 H Urine Color Urine Appearance Urine pH Ur Specific Alexander Urine Protein Urine Glucose (UA) Urine Ketones Urine Blood Problem List - Problems (1) Cervical spinal mass Code(s): G95.9 - DISEASE OF SPINAL CORD, UNSPECIFIED (2) Mass of right lung Code(s): R91.8 - OTHER NONSPECIFIC ABNORMAL FINDING OF LUNG FIELD (3) Right hand weakness Code(s): M62.81 - MUSCLE WEAKNESS (GENERALIZED) (4) CKD (chronic kidney disease) Code(s): N18.9 - CHRONIC KIDNEY DISEASE, UNSPECIFIED Assessment/Plan Current Medications Generic Name Dose Route Start Last Admin Trade Name Freq PRN Reason Stop Dose Admin Amlodipine Besylate 10 mg 10/05/16 15:00 10/14/16 10:13 Norvasc - PO 10 mg DAILY TANIA Administration Dexamethasone Sodium Phosphate 6 mg 10/11/16 21:15 10/14/16 15:24 Decadron Injection - IVPB 6 mg Q6H-IV TANIA Administration Amino Acids 1,000 mls @ 42 mls/hr 10/14/16 15:30 Clinimix - IV Q12H TANIA Famotidine/Sodium Chloride 50 mls @ 100 mls/hr 10/14/16 18:00 Pepcid 20 Mg Premixed Ivpb - IVPB BID TANIA Morphine Sulfate 3 mg 10/08/16 11:39 10/13/16 16:22 Morphine Injection - IVPUSH 3 mg Q4H PRN Administration PAIN Morphine Sulfate 15 mg 02/10/17 22:00 10/14/16 10:11 Ms Contin - PO 15 mg BID TANIA Administration Ondansetron HCl 4 mg 10/13/16 16:17 10/14/16 15:26 Zofran Injection IVPB 4 mg Q4H PRN Administration NAUSEA AND/OR VOMITING Oxycodone HCl 10 mg 10/11/16 17:04 10/11/16 18:02 Roxicodone - PO 10 mg Q3H PRN Administration SEVERE PAIN Polyethylene Glycol 17 gm 10/05/16 16:00 10/14/16 10:12 Miralax (For Daily Use) - PO 17 gm DAILY TANIA Administration Senna/Docusate Sodium 1 tablet 10/11/16 22:00 10/14/16 10:13 Pericolace - PO 1 tablet BID TANIA Administration Impression 1. CKD 2. HTN 3. lung cancer 4. metastatic disease 5. hypercalcemia Plan - can have renal workup as outpt - cont current plan - avoid nsaids - cont norvasc - avoid phosphate based enemas - check renal ultrasound Dr Mina
--- NOTE | 2016-10-14 16:52 | PN ---
Physical Exam: SUBJECTIVE: Patient seen and examined. He is complaining of lack of appetite and constipation. He didn't want to prepare for colonoscopy. He denies abdominal pain, N/V, fever, chills. OBJECTIVE: Vital Signs Period Temp Pulse Resp BP Sys/Ricci Pulse Ox Last 24 Hr 98 F-98.2 F 80-99 16-18 138-157/78-103 96-96 GENERAL: The patient is awake, alert, and fully oriented, in no acute distress, cachectic. HEAD: Normal with no signs of trauma. EYES:extraocular movements intact. No ptosis. ENT: moist mucous membranes. NECK: Trachea midline, full range of motion, supple. LUNGS: Breath sounds equal, clear to auscultation bilaterally, no wheezes, no crackles, no accessory muscle use. HEART: Regular rate and rhythm, S1, S2 without murmur, rub or gallop. ABDOMEN: Soft, mild tenderness in lower abdomen, no rebound tenderness, nl BS, distended, normoactive bowel sounds, no hepatosplenomegaly, no masses. EXTREMITIES: no edema. NEUROLOGICAL: Normal speech, gait not observed. Motor: RUE: elbow flexion 4/5, extension 3/5, adduction and abduction 5/5, wrist flexion 4/5, extension 4/5, fingers flexion and extension 1/5, LUE 5/5, LEs; 5/5, DTRs nl, Sensation; RUE: decreased in arm and forearm, hand. LUE, nl LEs nl. Romberg negative, Babinski negative. PSYCH: Flat affect. SKIN: Warm, dry, normal turgor, no rashes. Laboratory Results - last 24 hr 10/14/16 06:37 POC Glucometer 117 Active Medications Generic Name Dose Route Start Last Admin Trade Name Freq PRN Reason Stop Dose Admin Amlodipine Besylate 10 mg 10/05/16 15:00 10/14/16 10:13 Norvasc - PO 10 mg DAILY TANIA Administration Dexamethasone Sodium Phosphate 6 mg 10/11/16 21:15 10/14/16 15:24 Decadron Injection - IVPB 6 mg Q6H-IV TANIA Administration Amino Acids 1,000 mls @ 42 mls/hr 10/14/16 15:30 Clinimix - IV Q12H TANIA Famotidine/Sodium Chloride 50 mls @ 100 mls/hr 10/14/16 18:00 Pepcid 20 Mg Premixed Ivpb - IVPB BID TANIA Morphine Sulfate 3 mg 10/08/16 11:39 10/13/16 16:22 Morphine Injection - IVPUSH 3 mg Q4H PRN Administration PAIN Morphine Sulfate 15 mg 10/08/16 22:00 10/14/16 10:11 Ms Contin - PO 15 mg BID TANIA Administration Ondansetron HCl 4 mg 10/13/16 16:17 10/14/16 15:26 Zofran Injection IVPB 4 mg Q4H PRN Administration NAUSEA AND/OR VOMITING Oxycodone HCl 10 mg 10/11/16 17:04 10/11/16 18:02 Roxicodone - PO 10 mg Q3H PRN Administration SEVERE PAIN Polyethylene Glycol 17 gm 10/05/16 16:00 10/14/16 10:12 Miralax (For Daily Use) - PO 17 gm DAILY TANIA Administration Senna/Docusate Sodium 1 tablet 10/11/16 22:00 10/14/16 10:13 Pericolace - PO 1 tablet BID TANIA Administration CXR: prominent right hilium, possibility of hiliar mass MRI: Outside MRI of C-spine with C-6/C-7 mass with osseous destruction. Mass extends into spinal canal displacing the spinal cord to L of the midline and severe right neural foramina and right lateral recess narrowing. Has central spinal canal stenosis and discogenic disease as well. CT chest/abdomen/pelvis; large mass in right lower lobe, scattered nodules in lungs, hydrocele on right kidney, no abdominal pathology MRI brain:2.7x2.5x2 cm enhancing right cerebellar hemispheric mass lesion consistent with metastatic disease. MRI cervical spine;Neoplastic disease is seen involving the right lower cervical /upper thoracic spine as discussed with resultant mild to moderate leftward spinal cord displacement. This finding demonstrates no gross interval change in comparison to a previous MRI study of 09/08/2016 (performed at a different facility). Accurate comparison however is difficult as exam coverage on the previous study did not fully include the described neoplastic lesion. On the current exam there is probable identification of neoplastic disease extending contiguously into the right brachial plexus. There is also contiguous neoplastic erosion of the right first and second ribs posteriorly. ASSESSMENT/PLAN: 65 year old male with no PMH presents to the hospital referred from Dr. Claros office. He is complaining of right hand weakness and numbness that started in May.Today he is also complaining of pain in the cervical spine, weakness in right UE, especially in hand and pain in the tip of his fingers, and no sensation in 4th and 5th digits of R hand. The pt states that he lost 20 lbs in the past 5 months. He is admitted to med surg due to cervical mass. 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 and lungs; -cerebellar mass will require radiation -neurological assessment -right lung mass and multiple nodules -continue steroids -Psychology/Pastoral care and palliative care Constipation and lack of appetite: -due to pain medications -Miralax -Pericolace -Clinimix IV Hypertension: -no home meds -started Norvasc 10 mg Daily CKD: -f/u Nephrology consult, kidney and bladder US -no known baseline -avoid nephrotoxic substances DVT PPX: -SCDs F/E/N: No/No changes/Regular Disposition; Med surg, radiation tomorrow, dc after first RT, visiting nurse arranged Problem List - Problems (1) Cervical spinal mass Code(s): G95.9 - DISEASE OF SPINAL CORD, UNSPECIFIED (2) Right hand weakness Code(s): M62.81 - MUSCLE WEAKNESS (GENERALIZED) (3) Mass of right lung Code(s): R91.8 - OTHER NONSPECIFIC ABNORMAL FINDING OF LUNG FIELD Visit type - Emergency Visit Emergency Visit: Yes ED Registration Date: 10/05/16 Care time: The patient presented to the Emergency Department on the above date and was hospitalized for further evaluation of their emergent condition. - New Patient This patient is new to me today: No - Critical Care Critical Care patient: No - Discharge Referral Referred to [facility] No
[2016-10-14] MEDS: FAMOTIDINE 20 MG/50 ML IVPB 50 ML IVPB SCH ×2 (17:06→21:36)
[2016-10-14] MEDS: AMINO ACIDS 4.25%/D5W 1,000 ML IV SCH (17:07)
--- NOTE | 2016-10-14 17:59 | CON.PSL ---
Psychology Consult Consult Specialty:: Clinical Psychology Reason for Consultation:: Patient was referred due to depression after Cancer diagnosis. History Provided By: Patient, Family Member Limitations to Obtaining History: No Limitations Current Medications: Active Medications Amlodipine Besylate (Norvasc -) 10 mg PO DAILY [facility] Last Admin: 10/14/16 10:13 Dose: 10 mg Dexamethasone Sodium Phosphate (Decadron Injection -) 6 mg IVPB Q6H-IV [facility] Last Admin: 10/14/16 15:24 Dose: 6 mg Amino Acids (Clinimix -) 1,000 mls @ 42 mls/hr IV Q12H [facility] Last Admin: 10/14/16 17:07 Dose: 42 mls/hr Famotidine/Sodium Chloride (Pepcid 20 Mg Premixed Ivpb -) 50 mls @ 100 mls/hr IVPB BID [facility] Last Admin: 10/14/16 17:06 Dose: 100 mls/hr Morphine Sulfate (Morphine Injection -) 3 mg IVPUSH Q4H PRN PRN Reason: PAIN Last Admin: 10/13/16 16:22 Dose: 3 mg Morphine Sulfate (Ms Contin -) 15 mg PO BID [facility] Last Admin: 10/14/16 10:11 Dose: 15 mg Ondansetron HCl (Zofran Injection) 4 mg IVPB Q4H PRN PRN Reason: NAUSEA AND/OR VOMITING Last Admin: 10/14/16 15:26 Dose: 4 mg Oxycodone HCl (Roxicodone -) 10 mg PO Q3H PRN PRN Reason: SEVERE PAIN Last Admin: 10/11/16 18:02 Dose: 10 mg Polyethylene Glycol (Miralax (For Daily Use) -) 17 gm PO DAILY [facility] Last Admin: 10/14/16 10:12 Dose: 17 gm Senna/Docusate Sodium (Pericolace -) 1 tablet PO BID [facility] Last Admin: 10/14/16 10:13 Dose: 1 tablet Allergies: Allergies Allergy/AdvReac Type Severity Reaction Status Date / Time No Known Allergies Allergy Verified 10/05/16 10:15 Does patient have pain?: Yes (His pain level was low while supine but increases to a 5 when ambulating.) Pain Location Body Site: Finger (R-upper extremity numbness with pain in digits. ) Hx Alcohol Use: No (He used to drink a beer with meals.) Substance Use Type: None - Family History Family History: Unremarkable (He lives with his sister. The patient has a daughter who lives with her boyfriend. His sister was present during part of the evaluation. She and a friend were present. They appear to be very supportive. ) Current Medical Exam-Psy Attention: Alert Orientation: Time, Person, Place Immediate Term Memory: 10/29 Expressive: Coherent Receptive: Age Appropriate Comprehension of Spoken Words Hallucinations: Absent Thought Process: Intact Depression: Moderate Hopelessness: No Loss of Interest: No Anxiety Level: Moderate Danger to Self and Others: No Sleep: Poorly (Diffiulty sleeping in the hospital due to being "poked" often throughout the night per patient's description.) Appetite: Poor (Feels nausea and has vomitted at times.) Serial Sevens Intact: Yes Repeats 3 words told earlier: 08/31 (He could not recall two of the three words.) Support System: Significant Other (His sister), Child/Children, Family (His sister, daughter and friend are very supportive of him.) Leisure activities: With friends (He enjoys playing golf as well as playing computer games such as Spaseebo. He is upset that he cannot engage in these activities due to his arm being restricted.) Problem List - Problem (1) Right hand weakness Code(s): M62.81 - MUSCLE WEAKNESS (GENERALIZED) Assessment/Plan The patient appears to be experiencing moderate depression as well as anxiety attributed to a recent cancer diagnosis. He has a mass in his neck which he stated will be treated with radiation therapy. The patient was grateful for this consult and indicated that he would like to be seen again. The treatment plan is to offer more supportive therapy and pain management along with anxiety management using relaxation techniques. Cognitive behavioral therapy will be incorporated for the depression and anxiety as well. Thank you for the courtesy of your consultation request.
--- NOTE | 2016-10-14 20:12 | PN ---
Teaching Attending Note Name of Resident: Myra Erazo ATTENDING PHYSICIAN STATEMENT I saw and evaluated the patient. I reviewed the resident's note and discussed the case with the resident. I agree with the resident's findings and plan as documented. SUBJECTIVE: Patient is feeling nauseas unable to have any food since he is throwing up. Feels depressed. OBJECTIVE: Vital Signs Temperature 98.8 F 10/14/16 16:30 Pulse Rate 95 H 10/14/16 16:30 Respiratory Rate 18 10/14/16 16:30 Blood Pressure 152/86 10/14/16 16:30 O2 Sat by Pulse Oximetry (%) 96 10/14/16 09:00 GENERAL: The patient is awake, alert, and fully oriented, in no acute distress, cachectic. HEAD: Normal with no signs of trauma. EYES:extraocular movements intact. ENT: moist mucous membranes. NECK: Trachea midline, full range of motion, supple. LUNGS: Breath sounds equal, clear to auscultation bilaterally, no wheezes, no crackles, no accessory muscle use. HEART: Regular rate and rhythm, S1, S2 without murmur, rub or gallop. ABDOMEN: Soft, mild tenderness in lower abdomen, no rebound tenderness, nl BS, distended, normoactive bowel sounds, no hepatosplenomegaly, no masses. EXTREMITIES: no edema. No clubbing, no cyanosis NEUROLOGICAL: Cranial nerves II through XII grossly intact. Normal speech, gait not observed. PSYCH: Normal mood, normal affect. CBCD WBC 19.2 K/mm3 (4.0-10.0) H 10/12/16 07:45 RBC 4.58 M/mm3 (4.00-5.60) 10/12/16 07:45 Hgb 13.4 GM/dL (11.7-16.9) 10/12/16 07:45 Hct 39.3 % (35.4-49) 10/12/16 07:45 MCV 85.9 fl (80-96) 10/12/16 07:45 MCHC 34.0 g/dl (32.0-35.9) 10/12/16 07:45 RDW 14.0 % (11.9-15.9) 10/12/16 07:45 Plt Count 157 K/MM3 (134-434) 10/12/16 07:45 MPV 9.3 fl (7.5-11.1) 10/12/16 07:45 CMP Sodium 140 mmol/L (136-145) 10/12/16 07:45 Potassium 4.4 mmol/L (3.5-5.1) 10/12/16 07:45 Chloride 101 mmol/L (98-107) 10/12/16 07:45 Carbon Dioxide 29 mmol/L (21-32) 10/12/16 07:45 Anion Gap 10 (8-16) 10/12/16 07:45 BUN 50 mg/dL (7-18) H 10/12/16 07:45 Creatinine 1.5 mg/dL (0.7-1.3) H 10/12/16 07:45 Creat Clearance w eGFR 40.40 (>60) 10/05/16 10:45 Random Glucose 114 mg/dL (74-106) H 10/12/16 07:45 Calcium 9.1 mg/dL (8.5-10.1) 10/12/16 07:45 Total Bilirubin 0.5 mg/dL (0.2-1.0) 10/05/16 10:45 AST 13 U/L (15-37) L 10/05/16 10:45 ALT 15 U/L (12-78) 10/05/16 10:45 Alkaline Phosphatase 71 U/L (45-117) 10/05/16 10:45 Total Protein 7.2 g/dl (6.4-8.2) 10/05/16 10:45 Albumin 4.1 g/dl (3.4-5.0) 10/05/16 10:45 Current Medications Generic Name Dose Route Start Last Admin Trade Name Freq PRN Reason Stop Dose Admin Amlodipine Besylate 10 mg 10/05/16 15:00 10/14/16 10:13 Norvasc - PO 10 mg DAILY [facility] Administration Dexamethasone Sodium Phosphate 6 mg 10/11/16 21:15 10/14/16 15:24 Decadron Injection - IVPB 6 mg Q6H-IV [facility] Administration Amino Acids 1,000 mls @ 42 mls/hr 10/14/16 15:30 10/14/16 17:07 Clinimix - IV 42 mls/hr Q12H [facility] Administration Famotidine/Sodium Chloride 50 mls @ 100 mls/hr 10/14/16 18:00 10/14/16 17:06 Pepcid 20 Mg Premixed Ivpb - IVPB 100 mls/hr BID [facility] Administration Morphine Sulfate 3 mg 10/08/16 11:39 10/13/16 16:22 Morphine Injection - IVPUSH 3 mg Q4H PRN Administration PAIN Morphine Sulfate 15 mg 10/08/16 22:00 10/14/16 10:11 Ms Contin - PO 15 mg BID [facility] Administration Ondansetron HCl 4 mg 10/13/16 16:17 10/14/16 15:26 Zofran Injection IVPB 4 mg Q4H PRN Administration NAUSEA AND/OR VOMITING Oxycodone HCl 10 mg 10/11/16 17:04 10/11/16 18:02 Roxicodone - PO 10 mg Q3H PRN Administration SEVERE PAIN Polyethylene Glycol 17 gm 10/05/16 16:00 10/14/16 10:12 Miralax (For Daily Use) - PO 17 gm DAILY [facility] Administration Senna/Docusate Sodium 1 tablet 10/11/16 22:00 10/14/16 10:13 Pericolace - PO 1 tablet BID [facility] Administration Home Medications Medication Instructions Recorded NK [No Known Home Medication] 10/05/16 mri brain---rt. 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 # Acute RUE weakness, due to C spine mass with cord compression. Primary is lung cancer ( RUL mass with multiple lung nodules) Final path report is in the chart , RTx to cervical lesion after tissue diagnosis .Patient went for mapping . Cont. narcotics for pain On steroids Decadron IV will continue this dose for now. Oncology on the case Starting RT to C-s [place] and brain lesion # Abd pain continues , unable to eat since feels nauseas; GI consult #Constipation on Pericolace bid , Miralax daily continue. # Lung cancer primary ; mets to brain and C spine # Acute RF over chronic f/u with renal as out pt # Acute Hypercalcemia :resolved DVT Px: SCds
--- NOTE | 2016-10-14 20:54 | PN ---
Progress Note (short form) - Note Progress Note: PAtient seen and examined rue weakness no vomiting mild abdominal pain --not severe constipation belching Last Vital Signs Temp Pulse Resp BP Pulse Ox 98.8 F 95 H 18 152/86 96 10/14/16 16:30 10/14/16 16:30 10/14/16 16:30 10/14/16 16:30 10/14/16 09:00 HEENT: LO, EOM Intact Oropharynx: No thrush, No mucositis Cor: RSR, No murmurs, No gallops Lungs: Clear to P&A Abd: Soft, Normal bowel sounds, No organomegaly, mild tenderness to deep palpation. no guarding/rigidity Ext:EUE--3/5 Current Medications Amlodipine Besylate (Norvasc -) 10 mg PO DAILY [facility] Last Admin: 10/14/16 10:13 Dose: 10 mg Dexamethasone Sodium Phosphate (Decadron Injection -) 6 mg IVPB Q6H-IV [facility] Last Admin: 10/14/16 15:24 Dose: 6 mg Amino Acids (Clinimix -) 1,000 mls @ 42 mls/hr IV Q12H [facility] Last Admin: 10/14/16 17:07 Dose: 42 mls/hr Famotidine/Sodium Chloride (Pepcid 20 Mg Premixed Ivpb -) 50 mls @ 100 mls/hr IVPB BID [facility] Last Admin: 10/14/16 17:06 Dose: 100 mls/hr Morphine Sulfate (Morphine Injection -) 3 mg IVPUSH Q4H PRN PRN Reason: PAIN Last Admin: 10/13/16 16:22 Dose: 3 mg Morphine Sulfate (Ms Contin -) 15 mg PO BID [facility] Last Admin: 10/14/16 10:11 Dose: 15 mg Ondansetron HCl (Zofran Injection) 4 mg IVPB Q4H PRN PRN Reason: NAUSEA AND/OR VOMITING Last Admin: 10/14/16 15:26 Dose: 4 mg Oxycodone HCl (Roxicodone -) 10 mg PO Q3H PRN PRN Reason: SEVERE PAIN Last Admin: 10/11/16 18:02 Dose: 10 mg Polyethylene Glycol (Miralax (For Daily Use) -) 17 gm PO DAILY [facility] Last Admin: 10/14/16 10:12 Dose: 17 gm Senna/Docusate Sodium (Pericolace -) 1 tablet PO BID [facility] Last Admin: 10/14/16 10:13 Dose: 1 tablet labs reviewed A/P 66 y/o patient with presumed lung cancer-- RUL mass/multiple lung nodules and C spine lesion with cord displacement /compression. RUE weakness mri brain---rt. 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
[2016-10-15] MEDS: DEXAMETHASONE SOD PHOSPHATE 10 MG/1 ML VIAL IVPB SCH ×4 (02:07→21:54)
[2016-10-15] MEDS: AMINO ACIDS 4.25%/D5W 1,000 ML IV SCH ×2 (05:11→15:01)
[2016-10-15] MEDS: morphine SO4 SUSTAINED ACTING 15 MG TABLET.SA PO SCH ×2 (09:16→21:59)
[2016-10-15] MEDS: amLODIPine BESYLATE 10 MG TABLET (FP) PO SCH (09:16)
[2016-10-15] MEDS: POLYETHYLENE GLYCOL 3350 119 GM BTL PO SCH ×3 (09:17→22:00)
[2016-10-15] MEDS: SENNOSIDES/DOCUSATE COMBO (SENNA PLUS) TABLET (UD) PO SCH ×2 (09:17→21:59)
[2016-10-15] MEDS: FAMOTIDINE 20 MG/50 ML IVPB 50 ML IVPB SCH ×2 (09:17→22:00)
[2016-10-15 09:43] LABS: MCH 28.6 pg (25.7-33.7); MCHC 33.2 g/dl (32.0-35.9); MEAN CELL VOLUME 86.3 fl (80-96); MEAN PLT VOLUME 9.3 fl (7.5-11.1); PLATELET COUNT 169 K/MM3 (134-434); RDW 13.7 % (11.9-15.9); WHITE BLOOD COUNT 23.9 K/mm3 (4.0-10.0)
[2016-10-15 10:00] LABS: ALBUMIN 2.6 g/dl (3.4-5.0); BILIRUBIN,TOTAL 0.5 mg/dL (0.2-1.0); CALCIUM 8.8 mg/dL (8.5-10.1); CREATININE 1.4 mg/dL (0.7-1.3); TOT PROT 5.8 g/dl (6.4-8.2)
[2016-10-15] MEDS: ONDANSETRON 4 MG/2 ML VIAL IVPB PRN (11:52)
--- NOTE | 2016-10-15 12:42 | CON.GI ---
Consult Consult Specialty:: Gastroenterology Referred by:: Dr Keith Reason for Consultation:: Abdominal pain and constipation - History of Present Illness Chief Complaint: RUE pain and weakness now with constipation , belching and lower abdominal pain History of Present Illness: 66[address] Claros with RUE weakness leading to pain leading to this hospitalization. Found to have right lung cancer with right cerebellar mass and lytic C7, T1 lesions on of which has been biopsied. He has received decadron and now is undergoing RT. He has been getting narcotic analgesics and since being admitted he has developed constipation. This has led to repeated belching , some vomiting and lower abdominal pain. he has responded minimally to an enema. he has never had abdominal surgery,EGD or a colonoscopy. He has a chronic right hydrocele but denies pain at this area. Denies any other previous GI problems. His appetite was waning prior to this hospitalization and he has lost over 20 lbs. 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 Loss, Weakness Eyes: reports: No Symptoms HENT: reports: No Symptoms Neck: reports: Pain on Movement, Stiffness Cardiovascular: reports: No Symptoms Respiratory: reports: No Symptoms Gastrointestinal: reports: Abdominal Pain (only since hospitalization), Constipation Genitourinary: reports: No Symptoms Neurological: reports: Weakness (RUE) Endocrine: reports: Unexplained Weight Loss Psychiatric: reports: Anxiety, Depression Physical Exam-GI Vital Signs: Vital Signs Temperature 98.2 F 10/15/16 09:00 Pulse Rate 86 10/15/16 09:00 Respiratory Rate 18 10/15/16 09:00 Blood Pressure 133/85 10/15/16 09:00 O2 Sat by Pulse Oximetry (%) 96 10/15/16 09:18 CBC,CMP WBC 23.9 K/mm3 (4.0-10.0) H 10/15/16 08:20 RBC 4.88 M/mm3 (4.00-5.60) 10/15/16 08:20 Hgb 13.9 GM/dL (11.7-16.9) 10/15/16 08:20 Hct 42.1 % (35.4-49) 10/15/16 08:20 MCV 86.3 fl (80-96) 10/15/16 08:20 MCHC 33.2 g/dl (32.0-35.9) 10/15/16 08:20 RDW 13.7 % (11.9-15.9) 10/15/16 08:20 Plt Count 169 K/MM3 (134-434) 10/15/16 08:20 MPV 9.3 fl (7.5-11.1) 10/15/16 08:20 Neutrophils % Y 10/15/16 08:20 Lymphocytes % Y 10/15/16 08:20 Monocytes % 1.0 % (3.8-10.2) L 10/11/16 12:05 Eosinophils % 0.0 % (0-4.5) 10/10/16 08:25 Basophils % 0.1 % (0-2.0) D 10/10/16 08:25 Differential Comment Manual diff done 10/11/16 12:05 Reactive Lymphocytes 1 % (0-80) 10/11/16 12:05 Platelet Estimate Adequate (NORMAL) 10/11/16 12:05 Sodium 138 mmol/L (136-145) 10/15/16 08:20 Potassium 4.1 mmol/L (3.5-5.1) 10/15/16 08:20 Chloride 101 mmol/L (98-107) 10/15/16 08:20 Carbon Dioxide 26 mmol/L (21-32) 10/15/16 08:20 Anion Gap 11 (8-16) 10/15/16 08:20 BUN 65 mg/dL (7-18) H D 10/15/16 08:20 Creatinine 1.4 mg/dL (0.7-1.3) H 10/15/16 08:20 Creat Clearance w eGFR 50.40 (>60) 10/15/16 08:20 POC Glucometer 107 UNITS (()) 10/14/16 17:17 Random Glucose 120 mg/dL (74-106) H 10/15/16 08:20 Calcium 8.8 mg/dL (8.5-10.1) 10/15/16 08:20 Total Bilirubin 0.5 mg/dL (0.2-1.0) 10/15/16 08:20 AST 16 U/L (15-37) D 10/15/16 08:20 ALT 44 U/L (12-78) D 10/15/16 08:20 Alkaline Phosphatase 64 U/L (45-117) 10/15/16 08:20 Total Protein 5.8 g/dl (6.4-8.2) L 10/15/16 08:20 Albumin 2.6 g/dl (3.4-5.0) L D 10/15/16 08:20 PTH Intact 26 pg/mL (15-65) 10/07/16 06:30 PTH Related Protein < 1.1 PG/ML (.) 10/08/16 08:20 Current Medications Generic Name Dose Route Start Last Admin Trade Name Freq PRN Reason Stop Dose Admin Amlodipine Besylate 10 mg 10/05/16 15:00 10/15/16 09:16 Norvasc - PO 10 mg DAILY [facility] Administration Dexamethasone Sodium Phosphate 6 mg 10/11/16 21:15 10/15/16 09:17 Decadron Injection - IVPB 6 mg Q6H-IV [facility] Administration Amino Acids 1,000 mls @ 42 mls/hr 10/14/16 15:30 10/15/16 05:11 Clinimix - IV Not Given Q12H [facility] Famotidine/Sodium Chloride 50 mls @ 100 mls/hr 10/14/16 18:00 10/15/16 09:17 Pepcid 20 Mg Premixed Ivpb - IVPB 100 mls/hr BID [facility] Administration Morphine Sulfate 3 mg 10/08/16 11:39 10/13/16 16:22 Morphine Injection - IVPUSH 3 mg Q4H PRN Administration PAIN Morphine Sulfate 15 mg 10/08/16 22:00 10/15/16 09:16 Ms Contin - PO 15 mg BID [facility] Administration Ondansetron HCl 4 mg 10/13/16 16:17 10/15/16 11:52 Zofran Injection IVPB 4 mg Q4H PRN Administration NAUSEA AND/OR VOMITING Oxycodone HCl 10 mg 10/11/16 17:04 10/11/16 18:02 Roxicodone - PO 10 mg Q3H PRN Administration SEVERE PAIN Polyethylene Glycol 17 gm 10/05/16 16:00 10/15/16 09:17 Miralax (For Daily Use) - PO Not Given DAILY [facility] Senna/Docusate Sodium 1 tablet 10/11/16 22:00 10/15/16 09:17 Pericolace - PO Not Given BID [facility] Constitutional: Yes: No Distress Eyes: Yes: Conjunctiva Clear HENT: Yes: Normocephalic Neck: Yes: Decreased ROM Cardiovascular: Yes: Regular Rate and Rhythm Respiratory: Yes: CTA Bilaterally Gastrointestinal Inspection: Yes: Distention, Hernia (nontender right inguinal hernia which cannot be fully reduced) ...Auscultate: Yes: Hyperactive Bowel Sounds (high pitched with gushing sounds) ...Palpate: Yes: Soft, Tenderness (LLQ but no peritoneal signs) ...Percussion: Yes: Tympanitic ...Rectal Exam: Yes: Guaiac Negative, Other (2+ prostate, no masses, not impacted) Edema: No Neurological: Yes: Alert, Oriented Labs: CBC, BMP 10/15/16 08:20 10/15/16 08:20 INR, PTT INR 1.00 (0.82-1.09) 10/08/16 08:48 Imaging - Results Cat Scan: Image Reviewed (no obstruction or colon mass seen) Problem List - Problems (1) Narcotic bowel syndrome Code(s): K63.89 - OTHER SPECIFIED DISEASES OF INTESTINE (2) Constipation by delayed colonic transit Code(s): K59.01 - SLOW TRANSIT CONSTIPATION (3) Abdominal pain Code(s): R10.9 - UNSPECIFIED ABDOMINAL PAIN (4) Hydrocele Code(s): N43.3 - HYDROCELE, UNSPECIFIED Assessment/Plan I believe that Miguel Angel's pain is due to retained hard stool as a result of constipation related to narcotics and his sedentary state. An Ogilvies syndrome cannot be excluded. I will order Miralax TID to try to relieve the impaction and this will hopefully relieve his pain. His ongoing lung cancer problems preclude considering a screening colonoscopy at this time. This is no colon mass or obstruction seen on the CT scan
[2016-10-15 13:31] LABS: PLATELET ESTIMATE ADEQUATE (NORMAL)
--- NOTE | 2016-10-15 13:42 | PN ---
Teaching Attending Note Name of Resident: Myra Erazo ATTENDING PHYSICIAN STATEMENT I saw and evaluated the patient. I reviewed the resident's note and discussed the case with the resident. I agree with the resident's findings and plan as documented. SUBJECTIVE: c/o mild nausea and abd pain. Has no appetite to eat. OBJECTIVE: Vital Signs Temperature 98.2 F 10/15/16 09:00 Pulse Rate 86 10/15/16 09:00 Respiratory Rate 18 10/15/16 09:00 Blood Pressure 133/85 10/15/16 09:00 O2 Sat by Pulse Oximetry (%) 96 10/15/16 09:18 GENERAL: The patient is awake, alert, and fully oriented, in no acute distress, cachectic. HEAD: Normal with no signs of trauma. EYES:extraocular movements intact. ENT: moist mucous membranes. NECK: Trachea midline, full range of motion, supple. LUNGS: Breath sounds equal, clear to auscultation bilaterally, no wheezes, no crackles, no accessory muscle use. HEART: Regular rate and rhythm, S1, S2 without murmur, rub or gallop. ABDOMEN: Soft, mild tenderness in lower abdomen, no rebound tenderness, nl BS, distended, normoactive bowel sounds, no hepatosplenomegaly, no masses. EXTREMITIES: no edema. No clubbing, no cyanosis NEUROLOGICAL: Cranial nerves II through XII grossly intact. Normal speech, gait not observed. PSYCH: Normal mood, normal affect. CBCD WBC 23.9 K/mm3 (4.0-10.0) H 10/15/16 08:20 RBC 4.88 M/mm3 (4.00-5.60) 10/15/16 08:20 Hgb 13.9 GM/dL (11.7-16.9) 10/15/16 08:20 Hct 42.1 % (35.4-49) 10/15/16 08:20 MCV 86.3 fl (80-96) 10/15/16 08:20 MCHC 33.2 g/dl (32.0-35.9) 10/15/16 08:20 RDW 13.7 % (11.9-15.9) 10/15/16 08:20 Plt Count 169 K/MM3 (134-434) 10/15/16 08:20 MPV 9.3 fl (7.5-11.1) 10/15/16 08:20 CMP Sodium 138 mmol/L (136-145) 10/15/16 08:20 Potassium 4.1 mmol/L (3.5-5.1) 10/15/16 08:20 Chloride 101 mmol/L (98-107) 10/15/16 08:20 Carbon Dioxide 26 mmol/L (21-32) 10/15/16 08:20 Anion Gap 11 (8-16) 10/15/16 08:20 BUN 65 mg/dL (7-18) H D 10/15/16 08:20 Creatinine 1.4 mg/dL (0.7-1.3) H 10/15/16 08:20 Creat Clearance w eGFR 50.40 (>60) 10/15/16 08:20 Random Glucose 120 mg/dL (74-106) H 10/15/16 08:20 Calcium 8.8 mg/dL (8.5-10.1) 10/15/16 08:20 Total Bilirubin 0.5 mg/dL (0.2-1.0) 10/15/16 08:20 AST 16 U/L (15-37) D 10/15/16 08:20 ALT 44 U/L (12-78) D 10/15/16 08:20 Alkaline Phosphatase 64 U/L (45-117) 10/15/16 08:20 Total Protein 5.8 g/dl (6.4-8.2) L 10/15/16 08:20 Albumin 2.6 g/dl (3.4-5.0) L D 10/15/16 08:20 Current Medications Generic Name Dose Route Start Last Admin Trade Name Freq PRN Reason Stop Dose Admin Amlodipine Besylate 10 mg 10/05/16 15:00 10/15/16 09:16 Norvasc - PO 10 mg DAILY [facility] Administration Dexamethasone Sodium Phosphate 6 mg 10/11/16 21:15 10/15/16 09:17 Decadron Injection - IVPB 6 mg Q6H-IV [facility] Administration Famotidine/Sodium Chloride 50 mls @ 100 mls/hr 10/14/16 18:00 10/15/16 09:17 Pepcid 20 Mg Premixed Ivpb - IVPB 100 mls/hr BID [facility] Administration Amino Acids 1,000 mls @ 83 mls/hr 10/15/16 13:40 Clinimix - IV Q12H [facility] Morphine Sulfate 3 mg 10/08/16 11:39 10/13/16 16:22 Morphine Injection - IVPUSH 3 mg Q4H PRN Administration PAIN Morphine Sulfate 15 mg 10/08/16 22:00 10/15/16 09:16 Ms Contin - PO 15 mg BID [facility] Administration Ondansetron HCl 4 mg 10/13/16 16:17 10/15/16 11:52 Zofran Injection IVPB 4 mg Q4H PRN Administration NAUSEA AND/OR VOMITING Oxycodone HCl 10 mg 10/11/16 17:04 10/11/16 18:02 Roxicodone - PO 10 mg Q3H PRN Administration SEVERE PAIN Polyethylene Glycol 17 gm 10/15/16 14:00 Miralax (For Daily Use) - PO TID [facility] Senna/Docusate Sodium 1 tablet 10/11/16 22:00 10/15/16 09:17 Pericolace - PO Not Given BID [facility] Home Medications Medication Instructions Recorded NK [No Known Home Medication] 10/05/16 ASSESSMENT AND PLAN: 66 y/o man with no medical care for a while who presented with R upper ext weakness. # Acute RUE weakness, due to C spine mass with compression continues. Primary is lung cancer. 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 RTx to cervical lesion after tissue diagnosis . mapping is still pending. cont. narcotics for pain - cont steroids, 6 hr , will continue this dose for now . Received 1st palliative RT to C-T spine and posterior fossa brain today. Will cont RT on Tuesday @ 1:30pm, Cont decadron during RT. #Nutrition: On clinimax since patient is not eating will continue # Abd pain : likely due to constipation . Pericolace bid , Miralax daily # Lung cancer primary mets to brain and C spine # Acute RF over chronic f/u with renal as out pt # Acute Hypercalcemia :resolved DVT Px:SCDs .
--- NOTE | 2016-10-15 14:21 | PN ---
Progress Note, Physician History of Present Illness: Pt seen and examined at bedside. He complains of nausea and decreased PO intake. - Current Medication List Current Medications: Active Medications Amlodipine Besylate (Norvasc -) 10 mg PO DAILY [facility] Last Admin: 10/15/16 09:16 Dose: 10 mg Dexamethasone Sodium Phosphate (Decadron Injection -) 6 mg IVPB Q6H-IV [facility] Last Admin: 10/15/16 09:17 Dose: 6 mg Dronabinol (Marinol -) 5 mg PO BID [facility] Famotidine/Sodium Chloride (Pepcid 20 Mg Premixed Ivpb -) 50 mls @ 100 mls/hr IVPB BID [facility] Last Admin: 10/15/16 09:17 Dose: 100 mls/hr Amino Acids (Clinimix -) 1,000 mls @ 83 mls/hr IV Q12H [facility] Morphine Sulfate (Morphine Injection -) 3 mg IVPUSH Q4H PRN PRN Reason: PAIN Last Admin: 10/13/16 16:22 Dose: 3 mg Morphine Sulfate (Ms Contin -) 15 mg PO BID [facility] Last Admin: 10/15/16 09:16 Dose: 15 mg Ondansetron HCl (Zofran Injection) 4 mg IVPB Q4H PRN PRN Reason: NAUSEA AND/OR VOMITING Last Admin: 10/15/16 11:52 Dose: 4 mg Oxycodone HCl (Roxicodone -) 10 mg PO Q3H PRN PRN Reason: SEVERE PAIN Last Admin: 10/11/16 18:02 Dose: 10 mg Polyethylene Glycol (Miralax (For Daily Use) -) 17 gm PO TID [facility] Senna/Docusate Sodium (Pericolace -) 1 tablet PO BID [facility] Last Admin: 10/15/16 09:17 Dose: Not Given - Objective Vital Signs: Vital Signs Temperature 98.2 F 10/15/16 09:00 Pulse Rate 86 10/15/16 09:00 Respiratory Rate 18 10/15/16 09:00 Blood Pressure 133/85 10/15/16 09:00 O2 Sat by Pulse Oximetry (%) 96 10/15/16 09:18 Constitutional: Yes: Calm Eyes: Yes: Conjunctiva Clear HENT: Yes: Atraumatic Neck: Yes: Supple Cardiovascular: Yes: S1, S2 Respiratory: Yes: CTA Bilaterally Gastrointestinal: Yes: Soft Genitourinary: Yes: WNL Edema: No Integumentary: Yes: WNL Neurological: Yes: Oriented Psychiatric: Yes: Oriented Labs: CBC, BMP 10/15/16 08:20 10/15/16 08:20 INR, PTT INR 1.00 (0.82-1.09) 10/08/16 08:48 Problem List - Problems (1) Cervical spinal mass Code(s): G95.9 - DISEASE OF SPINAL CORD, UNSPECIFIED (2) Mass of right lung Code(s): R91.8 - OTHER NONSPECIFIC ABNORMAL FINDING OF LUNG FIELD (3) Right hand weakness Code(s): M62.81 - MUSCLE WEAKNESS (GENERALIZED) (4) CKD (chronic kidney disease) Code(s): N18.9 - CHRONIC KIDNEY DISEASE, UNSPECIFIED Assessment/Plan Current Medications Generic Name Dose Route Start Last Admin Trade Name Freq PRN Reason Stop Dose Admin Amlodipine Besylate 10 mg 10/05/16 15:00 10/15/16 09:16 Norvasc - PO 10 mg DAILY TANIA Administration Dexamethasone Sodium Phosphate 6 mg 10/11/16 21:15 10/15/16 09:17 Decadron Injection - IVPB 6 mg Q6H-IV TANIA Administration Dronabinol 5 mg 10/15/16 16:30 Marinol - PO BID TANIA Famotidine/Sodium Chloride 50 mls @ 100 mls/hr 10/14/16 18:00 10/15/16 09:17 Pepcid 20 Mg Premixed Ivpb - IVPB 100 mls/hr BID TANIA Administration Amino Acids 1,000 mls @ 83 mls/hr 10/15/16 13:40 Clinimix - IV Q12H TANIA Morphine Sulfate 3 mg 10/08/16 11:39 10/13/16 16:22 Morphine Injection - IVPUSH 3 mg Q4H PRN Administration PAIN Morphine Sulfate 15 mg 10/08/16 22:00 10/15/16 09:16 Ms Contin - PO 15 mg BID TANIA Administration Ondansetron HCl 4 mg 10/13/16 16:17 10/15/16 11:52 Zofran Injection IVPB 4 mg Q4H PRN Administration NAUSEA AND/OR VOMITING Oxycodone HCl 10 mg 10/11/16 17:04 10/11/16 18:02 Roxicodone - PO 10 mg Q3H PRN Administration SEVERE PAIN Polyethylene Glycol 17 gm 10/15/16 14:00 Miralax (For Daily Use) - PO TID TANIA Senna/Docusate Sodium 1 tablet 10/11/16 22:00 10/15/16 09:17 Pericolace - PO Not Given BID TANIA Impression 1. CKD 2. HTN 3. lung cancer 4. metastatic disease 5. hypercalcemia Plan - cont clinimix - encourage hydration - discussed renal function with pt, will defer workup until future time. Pt has other acute problem that he would like to handle. Will stay on board for fluid management. - monitor renal function - avoid nsaids - cont norvasc - check renal ultrasound Dr Mina
--- NOTE | 2016-10-15 14:38 | PN ---
Physical Exam: SUBJECTIVE: Patient seen and examined. He is laying on the bed with closed eyes. He is complaining of lack of appetite and nausea. He denies BM today. OBJECTIVE: Vital Signs Period Temp Pulse Resp BP Sys/Ricci Pulse Ox Last 24 Hr 98.2 F-98.8 F 80-95 16-18 133-152/78-92 96-96 GENERAL: The patient is awake, alert, and fully oriented, in no acute distress, cachectic. HEAD: Normal with no signs of trauma. EYES: extraocular movements intact. ENT: moist mucous membranes. NECK: Trachea midline, full range of motion, supple. LUNGS: Breath sounds equal, clear to auscultation bilaterally, no wheezes, no crackles. HEART: Regular rate and rhythm, S1, S2 without murmur, rub or gallop. ABDOMEN: Soft, mild tenderness in lower abdomen, no rebound tenderness, nl BS, normoactive bowel sounds. EXTREMITIES: no edema. NEUROLOGICAL: Normal speech, gait not observed. PSYCH: Flat affect. SKIN: Warm, dry, no rashes. Laboratory Results - last 24 hr 10/08/16 10/14/16 10/15/16 08:20 17:17 08:20 WBC 23.9 H RBC 4.88 Hgb 13.9 Hct 42.1 MCV 86.3 MCHC 33.2 RDW 13.7 Plt Count 169 MPV 9.3 Neutrophils % 97.0 H Lymphocytes % Y Monocytes % 3.0 L D Differential Comment Manual diff done Platelet Estimate Adequate Sodium Potassium Chloride Carbon Dioxide Anion Gap BUN Creatinine Creat Clearance w eGFR POC Glucometer 107 Random Glucose Calcium Total Bilirubin AST ALT Alkaline Phosphatase Total Protein Albumin PTH Related Protein < 1.1 10/15/16 08:20 WBC RBC Hgb Hct MCV MCHC RDW Plt Count MPV Neutrophils % Lymphocytes % Monocytes % Differential Comment Platelet Estimate Sodium 138 Potassium 4.1 Chloride 101 Carbon Dioxide 26 Anion Gap 11 BUN 65 H D Creatinine 1.4 H Creat Clearance w eGFR 50.40 POC Glucometer Random Glucose 120 H Calcium 8.8 Total Bilirubin 0.5 AST 16 D ALT 44 D Alkaline Phosphatase 64 Total Protein 5.8 L Albumin 2.6 L D PTH Related Protein Active Medications Generic Name Dose Route Start Last Admin Trade Name Freq PRN Reason Stop Dose Admin Amlodipine Besylate 10 mg 10/05/16 15:00 10/15/16 09:16 Norvasc - PO 10 mg DAILY TANIA Administration Dexamethasone Sodium Phosphate 6 mg 10/11/16 21:15 10/15/16 09:17 Decadron Injection - IVPB 6 mg Q6H-IV TANIA Administration Dronabinol 5 mg 10/15/16 16:30 Marinol - PO BID TANIA Famotidine/Sodium Chloride 50 mls @ 100 mls/hr 10/14/16 18:00 10/15/16 09:17 Pepcid 20 Mg Premixed Ivpb - IVPB 100 mls/hr BID TANIA Administration Amino Acids 1,000 mls @ 83 mls/hr 10/15/16 13:40 Clinimix - IV Q12H TANIA Morphine Sulfate 3 mg 10/08/16 11:39 10/13/16 16:22 Morphine Injection - IVPUSH 3 mg Q4H PRN Administration PAIN Morphine Sulfate 15 mg 10/08/16 22:00 10/15/16 09:16 Ms Contin - PO 15 mg BID TANIA Administration Ondansetron HCl 4 mg 10/13/16 16:17 10/15/16 11:52 Zofran Injection IVPB 4 mg Q4H PRN Administration NAUSEA AND/OR VOMITING Oxycodone HCl 10 mg 10/11/16 17:04 10/11/16 18:02 Roxicodone - PO 10 mg Q3H PRN Administration SEVERE PAIN Polyethylene Glycol 17 gm 10/15/16 14:00 Miralax (For Daily Use) - PO TID TANIA Senna/Docusate Sodium 1 tablet 10/11/16 22:00 10/15/16 09:17 Pericolace - PO Not Given BID [facility] CXR: prominent right hilium, possibility of hiliar mass MRI: Outside MRI of C-spine with C-6/C-7 mass with osseous destruction. Mass extends into spinal canal displacing the spinal cord to L of the midline and severe right neural foramina and right lateral recess narrowing. Has central spinal canal stenosis and discogenic disease as well. CT chest/abdomen/pelvis; large mass in right lower lobe, scattered nodules in lungs, hydrocele on right kidney, no abdominal pathology MRI brain:2.7x2.5x2 cm enhancing right cerebellar hemispheric mass lesion consistent with metastatic disease. MRI cervical spine;Neoplastic disease is seen involving the right lower cervical /upper thoracic spine as discussed with resultant mild to moderate leftward spinal cord displacement. This finding demonstrates no gross interval change in comparison to a previous MRI study of 09/08/2016 (performed at a different facility). Accurate comparison however is difficult as exam coverage on the previous study did not fully include the described neoplastic lesion. On the current exam there is probable identification of neoplastic disease extending contiguously into the right brachial plexus. There is also contiguous neoplastic erosion of the right first and second ribs posteriorly. CT scan of the cervical spine w/o contrast: Examination was performed for radiation therapy. Compared to prior MRI of the cervical spine dated 10/07/2016 Focal bone destruction/metastasis is again seen involving right lateral aspect of C7 vertebral body as well as the right lamina and posterior spinous process. Bone destruction/metastasis also involving right lateral aspect of T1 vertebral body. An associated large soft tissue mass extending into the corresponding neural foramina, spinal canal with suggestion of mild shift of the cord towards the left as well as a large right paraspinal soft tissue component are again seen. An approximately 3 cm pleural-based mass is again seen in superior segment of the right lower lobe consistent with clinical history of lung cancer. A small pulmonary nodule again seen in the right upper lobe and another tiny juxtapleural nodule in the right upper lobe, posteriorly. The height and alignment of the vertebral bodies appear unremarkable. The airway is patent and symmetric without gross narrowing. No gross enlarged lymph nodes in the neck on this noncontrast examination. Moderate degenerative disc disease at C6-C7 anterolisthesis extent C5-C6 and C4-C5 level with mild posterior spur formation bilateral uncovertebral hypertrophy mainly at C5-C6 level ASSESSMENT/PLAN: 65 year old male with no PMH presents to the hospital referred from Dr. Claros office. He is complaining of right hand weakness and numbness that started in May.Today he is also complaining of pain in the cervical spine, weakness in right UE, especially in hand and pain in the tip of his fingers, and no sensation in 4th and 5th digits of R hand. The pt states that he lost 20 lbs in the past 5 months. He is admitted to med surg due to cervical mass. 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 and lungs; -cerebellar mass will require radiation -neurological assessment -right lung mass and multiple nodules -continue steroids -Psychology/Pastoral care and palliative care Constipation and lack of appetite: -due to pain medications -Miralax TID -Pericolace 1 tab BID -Clinimix IV, increased thre rate to 83 ml/hr today -Marinol 5 mg before meals -f/u GI consultation Hypertension: -no home meds -started Norvasc 10 mg Daily CKD: -f/u Nephrology consult, kidney and bladder US -no known baseline -avoid nephrotoxic substances DVT PPX: -SCDs F/E/N: No/No changes/low Na Disposition; Med surg, radiation today, dc after first RT, visiting nurse arranged Problem List - Problems (1) Cervical spinal mass Code(s): G95.9 - DISEASE OF SPINAL CORD, UNSPECIFIED (2) Right hand weakness Code(s): M62.81 - MUSCLE WEAKNESS (GENERALIZED) (3) Mass of right lung Code(s): R91.8 - OTHER NONSPECIFIC ABNORMAL FINDING OF LUNG FIELD Visit type - Emergency Visit Emergency Visit: Yes ED Registration Date: 10/05/16 Care time: The patient presented to the Emergency Department on the above date and was hospitalized for further evaluation of their emergent condition. - New Patient This patient is new to me today: No - Critical Care Critical Care patient: No - Discharge Referral Referred to [facility] Med P.C[facility] No
--- NOTE | 2016-10-15 14:40 | PN ---
Progress Note (short form) - Note Progress Note: Radiation Oncology c/o mild nausea and abd pain. seen by GI. 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 Received 1st palliative RT to C-T spine and posterior fossa brain today. Some back pain due to length of time on table for 2 treatment sites and simulation. Consider premedication with analgesics. Will cont RT on Tuesday @ 1:30pm. Cont decadron during RT.
[2016-10-15] MEDS: DRONABINOL 5 MG CAPSULE PO SCH (17:56)
--- NOTE | 2016-10-15 18:48 | PN ---
Progress Note (short form) - Note Progress Note: Patient seen and examined RT ongoing Pain in RUE virtually gone. Numbness persists. Anorechtic ; fearful of eating and constipated Last Vital Signs Temp Pulse Resp BP Pulse Ox 98.2 F 88 20 139/83 96 10/15/16 09:00 10/15/16 16:20 10/15/16 16:20 10/15/16 16:20 10/15/16 09:18 HEENT: LO, EOM Intact Oropharynx: No thrush, No mucositis Cor: RSR, No murmurs, No gallops Lungs: Clear to P&A Abd: Soft, Normal bowel sounds, No organomegaly Ext:No significant edema Skin: No rashes, Integument intact CBC, BMP 10/15/16 08:20 10/15/16 08:20 Current Medications Generic Name Dose Route Start Last Admin Trade Name Freq PRN Reason Stop Dose Admin Amlodipine Besylate 10 mg 10/05/16 15:00 10/15/16 09:16 Norvasc - PO 10 mg DAILY TANIA Administration Dexamethasone Sodium Phosphate 6 mg 10/11/16 21:15 10/15/16 15:02 Decadron Injection - IVPB 6 mg Q6H-IV TANIA Administration Dronabinol 5 mg 10/15/16 16:30 10/15/16 17:56 Marinol - PO 5 mg BIDAC TANIA Administration Famotidine/Sodium Chloride 50 mls @ 100 mls/hr 10/14/16 18:00 10/15/16 09:17 Pepcid 20 Mg Premixed Ivpb - IVPB 100 mls/hr BID TANIA Administration Amino Acids 1,000 mls @ 83 mls/hr 10/15/16 13:40 10/15/16 15:01 Clinimix - IV 83 mls/hr Q12H TANIA Administration Morphine Sulfate 3 mg 10/08/16 11:39 10/13/16 16:22 Morphine Injection - IVPUSH 3 mg Q4H PRN Administration PAIN Morphine Sulfate 15 mg 10/08/16 22:00 10/15/16 09:16 Ms Contin - PO 15 mg BID TANIA Administration Ondansetron HCl 4 mg 10/13/16 16:17 10/15/16 11:52 Zofran Injection IVPB 4 mg Q4H PRN Administration NAUSEA AND/OR VOMITING Oxycodone HCl 10 mg 10/11/16 17:04 10/11/16 18:02 Roxicodone - PO 10 mg Q3H PRN Administration SEVERE PAIN Polyethylene Glycol 17 gm 10/15/16 14:00 10/15/16 15:02 Miralax (For Daily Use) - PO 17 grams TID TANIA Administration Senna/Docusate Sodium 1 tablet 10/11/16 22:00 10/15/16 09:17 Pericolace - PO Not Given BID TANIA Impression: Metastatic lung ca to [employer], paraspinal area with spinal cord encroachment. RT ongoing Suggest Decrease decadron to 4 mg IVPB q 6 h, (24 mg---> 16 mg)
[2016-10-16] MEDS: AMINO ACIDS 4.25%/D5W 1,000 ML IV SCH ×2 (02:40→13:36)
[2016-10-16] MEDS: DEXAMETHASONE SOD PHOSPHATE 10 MG/1 ML VIAL IVPB SCH ×4 (03:30→21:00)
[2016-10-16] MEDS: DRONABINOL 5 MG CAPSULE PO SCH ×2 (06:32→16:21)
[2016-10-16] MEDS: POLYETHYLENE GLYCOL 3350 119 GM BTL PO SCH ×3 (06:34→23:17)
[2016-10-16] MEDS ORDERED: PT OWN MED DRAWER 7, Y5N ONE ×2 (09:33→13:42)
[2016-10-16] MEDS: SENNOSIDES/DOCUSATE COMBO (SENNA PLUS) TABLET (UD) PO SCH ×2 (09:36→22:00)
[2016-10-16] MEDS: amLODIPine BESYLATE 10 MG TABLET (FP) PO SCH (09:36)
[2016-10-16] MEDS: FAMOTIDINE 20 MG/50 ML IVPB 50 ML IVPB SCH ×2 (09:36→22:00)
--- NOTE | 2016-10-16 11:57 | PN ---
Progress Note (short form) - Note Progress Note: Patient wants to rest . Less pain , feeling slightly better but feels depressed. Vital Signs Temperature 97.7 F 10/16/16 08:35 Pulse Rate 88 10/16/16 08:35 Respiratory Rate 18 10/16/16 08:35 Blood Pressure 154/93 10/16/16 08:35 O2 Sat by Pulse Oximetry (%) 96 10/15/16 21:00 GENERAL: The patient is awake, alert, and fully oriented, in no acute distress, cachectic. HEAD: Normal with no signs of trauma. EYES:extraocular movements intact. ENT: moist mucous membranes. NECK: Trachea midline, full range of motion, supple. LUNGS: Breath sounds equal, clear to auscultation bilaterally, no wheezes, no crackles, no accessory muscle use. HEART: Regular rate and rhythm, S1, S2 without murmur, rub or gallop. ABDOMEN: Soft, mild tenderness in lower abdomen, no rebound tenderness, nl BS, distended, normoactive bowel sounds, No masses appreciated. EXTREMITIES: no edema. No clubbing, no cyanosis NEUROLOGICAL: Cranial nerves II through XII grossly intact. Normal speech, gait not observed. PSYCH: Normal mood, normal affect. CBCD WBC 23.9 K/mm3 (4.0-10.0) H 10/15/16 08:20 RBC 4.88 M/mm3 (4.00-5.60) 10/15/16 08:20 Hgb 13.9 GM/dL (11.7-16.9) 10/15/16 08:20 Hct 42.1 % (35.4-49) 10/15/16 08:20 MCV 86.3 fl (80-96) 10/15/16 08:20 MCHC 33.2 g/dl (32.0-35.9) 10/15/16 08:20 RDW 13.7 % (11.9-15.9) 10/15/16 08:20 Plt Count 169 K/MM3 (134-434) 10/15/16 08:20 MPV 9.3 fl (7.5-11.1) 10/15/16 08:20 CMP Sodium 138 mmol/L (136-145) 10/15/16 08:20 Potassium 4.1 mmol/L (3.5-5.1) 10/15/16 08:20 Chloride 101 mmol/L (98-107) 10/15/16 08:20 Carbon Dioxide 26 mmol/L (21-32) 10/15/16 08:20 Anion Gap 11 (8-16) 10/15/16 08:20 BUN 65 mg/dL (7-18) H D 10/15/16 08:20 Creatinine 1.4 mg/dL (0.7-1.3) H 10/15/16 08:20 Creat Clearance w eGFR 50.40 (>60) 10/15/16 08:20 Random Glucose 120 mg/dL (74-106) H 10/15/16 08:20 Calcium 8.8 mg/dL (8.5-10.1) 10/15/16 08:20 Total Bilirubin 0.5 mg/dL (0.2-1.0) 10/15/16 08:20 AST 16 U/L (15-37) D 10/15/16 08:20 ALT 44 U/L (12-78) D 10/15/16 08:20 Alkaline Phosphatase 64 U/L (45-117) 10/15/16 08:20 Total Protein 5.8 g/dl (6.4-8.2) L 10/15/16 08:20 Albumin 2.6 g/dl (3.4-5.0) L D 10/15/16 08:20 Current Medications Generic Name Dose Route Start Last Admin Trade Name Freq PRN Reason Stop Dose Admin Amlodipine Besylate 10 mg 10/05/16 15:00 10/16/16 09:36 Norvasc - PO 10 mg DAILY TANIA Administration Dexamethasone Sodium Phosphate 6 mg 10/11/16 21:15 10/16/16 09:03 Decadron Injection - IVPB 6 mg Q6H-IV TANIA Administration Dronabinol 5 mg 10/15/16 16:30 10/16/16 06:32 Marinol - PO 5 mg BIDAC TANIA Administration Famotidine/Sodium Chloride 50 mls @ 100 mls/hr 10/14/16 18:00 10/16/16 09:36 Pepcid 20 Mg Premixed Ivpb - IVPB 100 mls/hr BID TANIA Administration Amino Acids 1,000 mls @ 83 mls/hr 10/15/16 13:40 10/16/16 02:40 Clinimix - IV Not Given Q12H TANIA Morphine Sulfate 3 mg 10/08/16 11:39 10/13/16 16:22 Morphine Injection - IVPUSH 3 mg Q4H PRN Administration PAIN Ondansetron HCl 4 mg 10/13/16 16:17 10/15/16 11:52 Zofran Injection IVPB 4 mg Q4H PRN Administration NAUSEA AND/OR VOMITING Oxycodone HCl 10 mg 10/11/16 17:04 10/11/16 18:02 Roxicodone - PO 10 mg Q3H PRN Administration SEVERE PAIN Polyethylene Glycol 17 gm 10/15/16 14:00 10/16/16 06:34 Miralax (For Daily Use) - PO 17 grams TID TANIA Administration Senna/Docusate Sodium 1 tablet 10/11/16 22:00 10/16/16 09:36 Pericolace - PO 1 tablet BID TANIA Administration Home Medications Medication Instructions Recorded NK [No Known Home Medication] 10/05/16 ASSESSMENT AND PLAN: 66 y/o man with no medical care for a while who presented with R upper ext weakness. # Acute RUE weakness continues , due to C spine mass with compression continues. Primary site is lung cancer. 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 RTx to cervical lesion after tissue diagnosis . cont. narcotics for pain . cont steroids, q6hr , will continue this dose for now . Received 1st palliative RT to C-T spine and posterior fossa brain today. Will cont RT on Tuesday @ 1:30pm, Cont decadron during RT. # acute leukocytosis due to steroids. continue to monitor #Nutrition: On clinimax since patient is not eating will continue # Abd pain : likely due to constipation . Pericolace bid , Miralax daily continue # Lung cancer primary mets to brain and C spine # Acute RF over chronic f/u with renal as out pt # Acute Hypercalcemia :resolved DVT Px:SCDs Visit type - Emergency Visit Emergency Visit: Yes ED Registration Date: 10/05/16 Care time: The patient presented to the Emergency Department on the above date and was hospitalized for further evaluation of their emergent condition. - New Patient This patient is new to me today: No - Critical Care Critical Care patient: No - Discharge Referral Referred to [facility] Med [facility].C.: No
--- NOTE | 2016-10-16 14:51 | PN ---
Progress Note, Physician Chief Complaint: Renal f/u Pt having some nausea Oral intake is poor On Clinimix Rising BUN on steroids Renal US still to be done - Current Medication List Current Medications: Active Medications Amlodipine Besylate (Norvasc -) 10 mg PO DAILY [facility] Last Admin: 10/16/16 09:36 Dose: 10 mg Dexamethasone Sodium Phosphate (Decadron Injection -) 6 mg IVPB Q6H-IV [facility] Last Admin: 10/16/16 09:03 Dose: 6 mg Dronabinol (Marinol -) 5 mg PO BIDAC [facility] Last Admin: 10/16/16 06:32 Dose: 5 mg Famotidine/Sodium Chloride (Pepcid 20 Mg Premixed Ivpb -) 50 mls @ 100 mls/hr IVPB BID [facility] Last Admin: 10/16/16 09:36 Dose: 100 mls/hr Amino Acids (Clinimix -) 1,000 mls @ 83 mls/hr IV Q12H [facility] Last Admin: 10/16/16 13:36 Dose: 83 mls/hr Morphine Sulfate (Morphine Injection -) 3 mg IVPUSH Q4H PRN PRN Reason: PAIN Last Admin: 10/13/16 16:22 Dose: 3 mg Ondansetron HCl (Zofran Injection) 4 mg IVPB Q4H PRN PRN Reason: NAUSEA AND/OR VOMITING Last Admin: 10/15/16 11:52 Dose: 4 mg Oxycodone HCl (Roxicodone -) 10 mg PO Q3H PRN PRN Reason: SEVERE PAIN Last Admin: 10/11/16 18:02 Dose: 10 mg Polyethylene Glycol (Miralax (For Daily Use) -) 17 gm PO TID [facility] Last Admin: 10/16/16 13:36 Dose: Not Given Senna/Docusate Sodium (Pericolace -) 1 tablet PO BID [facility] Last Admin: 10/16/16 09:36 Dose: 1 tablet - Objective Vital Signs: Vital Signs Temperature 97.7 F 10/16/16 08:35 Pulse Rate 88 10/16/16 08:35 Respiratory Rate 18 10/16/16 08:35 Blood Pressure 154/93 10/16/16 08:35 O2 Sat by Pulse Oximetry (%) 96 10/15/16 21:00 Constitutional: Yes: No Distress Cardiovascular: Yes: S1, S2 Respiratory: Yes: CTA Bilaterally Gastrointestinal: Yes: Soft. No: Tenderness, Rebound Edema: No Labs: CBC, BMP 10/15/16 08:20 10/15/16 08:20 INR, PTT INR 1.00 (0.82-1.09) 10/08/16 08:48 Assessment/Plan Impression 1. CKD 2. HTN 3. lung cancer with metastatic disease 5. S/P Hypercalcemia Plan Clinimix as ordered and encourage PO hydration May need to add another agent for the HTN if BP remains elevated Renal ultrasound Dr Pierre
--- NOTE | 2016-10-16 17:24 | PN ---
Progress Note (short form) - Note Progress Note: Oncology follow-up note S: Patient states he is tired from the radiation but his pain has decreased. He has a low appetite and does not wish to be examined today. His sister is at bedside, she brought his favorite chilli but he does not want to eat it. Last Vital Signs Temp Pulse Resp BP Pulse Ox 98.0 F 85 16 137/81 96 10/16/16 14:56 10/16/16 14:56 10/16/16 14:56 10/16/16 14:56 10/15/16 21:00 Did not wish to be examined CBC, BMP 10/15/16 08:20 10/15/16 08:20 Current Medications Generic Name Dose Route Start Last Admin Trade Name Freq PRN Reason Stop Dose Admin Amlodipine Besylate 10 mg 10/05/16 15:00 10/16/16 09:36 Norvasc - PO 10 mg DAILY TANIA Administration Dexamethasone Sodium Phosphate 6 mg 10/11/16 21:15 10/16/16 15:01 Decadron Injection - IVPB 6 mg Q6H-IV TANIA Administration Dronabinol 5 mg 10/15/16 16:30 10/16/16 16:21 Marinol - PO 5 mg BIDAC TANIA Administration Famotidine/Sodium Chloride 50 mls @ 100 mls/hr 10/14/16 18:00 10/16/16 09:36 Pepcid 20 Mg Premixed Ivpb - IVPB 100 mls/hr BID TANIA Administration Amino Acids 1,000 mls @ 83 mls/hr 10/15/16 13:40 10/16/16 13:36 Clinimix - IV 83 mls/hr Q12H TANIA Administration Morphine Sulfate 3 mg 10/08/16 11:39 10/13/16 16:22 Morphine Injection - IVPUSH 3 mg Q4H PRN Administration PAIN Ondansetron HCl 4 mg 10/13/16 16:17 10/15/16 11:52 Zofran Injection IVPB 4 mg Q4H PRN Administration NAUSEA AND/OR VOMITING Oxycodone HCl 10 mg 10/11/16 17:04 10/11/16 18:02 Roxicodone - PO 10 mg Q3H PRN Administration SEVERE PAIN Polyethylene Glycol 17 gm 10/15/16 14:00 10/16/16 13:36 Miralax (For Daily Use) - PO Not Given TID [facility] Senna/Docusate Sodium 1 tablet 10/11/16 22:00 10/16/16 09:36 Pericolace - PO 1 tablet BID TANIA Administration A/P : 66 y/o male with a new diagnosis of metastatic lung ca to [employer], paraspinal area with spinal cord encroachment. - continue with RT as it is clearly benefitting him -pain control and good bowel regimen to prevent constipation -patient encouraged to eat small frequent meals -BP better today, possibly worse BP from pain, would then be aggressive with pain contro -decrease decadron to 4 mg q6h -supportive care
[2016-10-16] MEDS: oxyCODONE HCL 5 MG TABLET PO PRN (18:24)
[2016-10-16] MEDS: ONDANSETRON 4 MG/2 ML VIAL IVPB PRN (23:25)
[2016-10-17] MEDS: AMINO ACIDS 4.25%/D5W 1,000 ML IV SCH ×2 (01:58→14:02)
[2016-10-17] MEDS: DEXAMETHASONE SOD PHOSPHATE 10 MG/1 ML VIAL IVPB SCH ×4 (06:25→21:09)
[2016-10-17] MEDS: POLYETHYLENE GLYCOL 3350 119 GM BTL PO SCH ×3 (06:26→22:08)
[2016-10-17] MEDS: DRONABINOL 5 MG CAPSULE PO SCH ×2 (06:26→16:27)
[2016-10-17] MEDS ORDERED: PT OWN MED DRAWER 7, Y5N ONE (08:26)
[2016-10-17 08:52] LABS: CALCIUM 8.8 mg/dL (8.5-10.1)
[2016-10-17 08:53] LABS: CREATININE 1.4 mg/dL (0.7-1.3)
[2016-10-17] MEDS: FAMOTIDINE 20 MG/50 ML IVPB 50 ML IVPB SCH ×2 (09:29→22:10)
[2016-10-17] MEDS: SENNOSIDES/DOCUSATE COMBO (SENNA PLUS) TABLET (UD) PO SCH ×2 (09:29→22:09)
[2016-10-17] MEDS: amLODIPine BESYLATE 10 MG TABLET (FP) PO SCH (09:29)
--- NOTE | 2016-10-17 11:47 | PN ---
Progress Note, Physician Chief Complaint: Renal f/u Oral intake is poor and c/o constipation On Clinimix Rising BUN on steroids while the Cr is satble Renal US pending - Current Medication List Current Medications: Active Medications Amlodipine Besylate (Norvasc -) 10 mg PO DAILY REPLACED BY [facility] Last Admin: 10/17/16 09:29 Dose: 10 mg Dexamethasone Sodium Phosphate (Decadron Injection -) 6 mg IVPB Q6H-IV REPLACED BY [facility] Last Admin: 10/17/16 08:32 Dose: 6 mg Dronabinol (Marinol -) 5 mg PO BIDAC REPLACED BY [facility] Last Admin: 10/17/16 06:26 Dose: 5 mg Famotidine/Sodium Chloride (Pepcid 20 Mg Premixed Ivpb -) 50 mls @ 100 mls/hr IVPB BID REPLACED BY [facility] Last Admin: 10/17/16 09:29 Dose: 100 mls/hr Amino Acids (Clinimix -) 1,000 mls @ 83 mls/hr IV Q12H REPLACED BY [facility] Last Admin: 10/17/16 01:58 Dose: 83 mls/hr Morphine Sulfate (Morphine Injection -) 3 mg IVPUSH Q4H PRN PRN Reason: PAIN Last Admin: 10/13/16 16:22 Dose: 3 mg Ondansetron HCl (Zofran Injection) 4 mg IVPB Q4H PRN PRN Reason: NAUSEA AND/OR VOMITING Last Admin: 10/16/16 23:25 Dose: 4 mg Oxycodone HCl (Roxicodone -) 10 mg PO Q3H PRN PRN Reason: SEVERE PAIN Last Admin: 10/16/16 18:24 Dose: 10 mg Polyethylene Glycol (Miralax (For Daily Use) -) 17 gm PO TID REPLACED BY [facility] Last Admin: 10/17/16 06:26 Dose: 17 grams Senna/Docusate Sodium (Pericolace -) 1 tablet PO BID REPLACED BY [facility] Last Admin: 10/17/16 09:29 Dose: 1 tablet - Objective Vital Signs: Vital Signs Temperature 97.9 F 10/17/16 08:40 Pulse Rate 85 10/17/16 08:40 Respiratory Rate 18 10/17/16 08:40 Blood Pressure 145/87 10/17/16 08:40 O2 Sat by Pulse Oximetry (%) 96 10/16/16 21:00 Constitutional: Yes: No Distress Cardiovascular: Yes: S1, S2 Respiratory: Yes: CTA Bilaterally Gastrointestinal: Yes: Soft, Other (Mild tenderness without rebound) Edema: No Labs: CBC, BMP 10/15/16 08:20 10/17/16 07:00 INR, PTT INR 1.00 (0.82-1.09) 10/08/16 08:48 Assessment/Plan Impression 1. CKD 2. HTN controlled at this time 3. Lung cancer with metastatic disease 5. S/P Hypercalcemia Plan Clinimix Encouraged to increase PO intake Renal ultrasound as ordered Radiotherapy to be resumed tomorrow Dr Pierre
--- NOTE | 2016-10-17 18:02 | PN ---
Progress Note (short form) - Note Progress Note: Vital Signs Temperature 98.2 F 10/17/16 14:21 Pulse Rate 86 10/17/16 14:21 Respiratory Rate 18 10/17/16 14:21 Blood Pressure 130/87 10/17/16 14:21 O2 Sat by Pulse Oximetry (%) 96 10/16/16 21:00 GENERAL: The patient is awake, alert, and fully oriented, in no acute distress, cachectic. HEAD: Normal with no signs of trauma. EYES:extraocular movements intact. ENT: moist mucous membranes. NECK: Trachea midline, full range of motion, supple. LUNGS: Breath sounds equal, clear to auscultation bilaterally, no wheezes, no crackles, no accessory muscle use. HEART: Regular rate and rhythm, S1, S2 without murmur, rub or gallop. ABDOMEN: Soft, mild tenderness in lower abdomen, no rebound tenderness, nl BS, distended, normoactive bowel sounds, no hepatosplenomegaly, no masses. EXTREMITIES: no edema. No clubbing, no cyanosis NEUROLOGICAL: Cranial nerves II through XII grossly intact. Normal speech, gait not observed. PSYCH: Normal mood, normal affect. CBCD WBC 23.9 K/mm3 (4.0-10.0) H 10/15/16 08:20 RBC 4.88 M/mm3 (4.00-5.60) 10/15/16 08:20 Hgb 13.9 GM/dL (11.7-16.9) 10/15/16 08:20 Hct 42.1 % (35.4-49) 10/15/16 08:20 MCV 86.3 fl (80-96) 10/15/16 08:20 MCHC 33.2 g/dl (32.0-35.9) 10/15/16 08:20 RDW 13.7 % (11.9-15.9) 10/15/16 08:20 Plt Count 169 K/MM3 (134-434) 10/15/16 08:20 MPV 9.3 fl (7.5-11.1) 10/15/16 08:20 CMP Sodium 138 mmol/L (136-145) 10/17/16 07:00 Potassium 4.0 mmol/L (3.5-5.1) 10/17/16 07:00 Chloride 101 mmol/L (98-107) 10/17/16 07:00 Carbon Dioxide 22 mmol/L (21-32) 10/17/16 07:00 Anion Gap 15 (8-16) 10/17/16 07:00 BUN 88 mg/dL (7-18) H D 10/17/16 07:00 Creatinine 1.4 mg/dL (0.7-1.3) H 10/17/16 07:00 Creat Clearance w eGFR 50.40 (>60) 10/15/16 08:20 Random Glucose 128 mg/dL (74-106) H 10/17/16 07:00 Calcium 8.8 mg/dL (8.5-10.1) 10/17/16 07:00 Total Bilirubin 0.5 mg/dL (0.2-1.0) 10/15/16 08:20 AST 16 U/L (15-37) D 10/15/16 08:20 ALT 44 U/L (12-78) D 10/15/16 08:20 Alkaline Phosphatase 64 U/L (45-117) 10/15/16 08:20 Total Protein 5.8 g/dl (6.4-8.2) L 10/15/16 08:20 Albumin 2.6 g/dl (3.4-5.0) L D 10/15/16 08:20 Current Medications Generic Name Dose Route Start Last Admin Trade Name Freq PRN Reason Stop Dose Admin Amlodipine Besylate 10 mg 10/05/16 15:00 10/17/16 09:29 Norvasc - PO 10 mg DAILY TANIA Administration Dexamethasone Sodium Phosphate 6 mg 10/11/16 21:15 10/17/16 14:48 Decadron Injection - IVPB 6 mg Q6H-IV TANIA Administration Dronabinol 5 mg 10/15/16 16:30 10/17/16 16:27 Marinol - PO 5 mg BIDAC TANIA Administration Famotidine/Sodium Chloride 50 mls @ 100 mls/hr 10/14/16 18:00 10/17/16 09:29 Pepcid 20 Mg Premixed Ivpb - IVPB 100 mls/hr BID TANIA Administration Amino Acids 1,000 mls @ 83 mls/hr 10/15/16 13:40 10/17/16 14:02 Clinimix - IV 83 mls/hr Q12H TANIA Administration Morphine Sulfate 3 mg 10/08/16 11:39 10/13/16 16:22 Morphine Injection - IVPUSH 3 mg Q4H PRN Administration PAIN Ondansetron HCl 4 mg 10/13/16 16:17 10/16/16 23:25 Zofran Injection IVPB 4 mg Q4H PRN Administration NAUSEA AND/OR VOMITING Oxycodone HCl 10 mg 10/11/16 17:04 10/16/16 18:24 Roxicodone - PO 10 mg Q3H PRN Administration SEVERE PAIN Polyethylene Glycol 17 gm 10/15/16 14:00 10/17/16 14:03 Miralax (For Daily Use) - PO Not Given TID TANIA Senna/Docusate Sodium 1 tablet 10/11/16 22:00 10/17/16 09:29 Pericolace - PO 1 tablet BID TANIA Administration Home Medications Medication Instructions Recorded NK [No Known Home Medication] 10/05/16 A/P 66 y/o man with no medical care for a while who presented with Right upper ext weakness. # Acute RUE weakness, due to C spine mass with compression continues. Primary is lung cancer. 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 RTx to cervical lesion after tissue diagnosis . mapping is still pending. cont. narcotics for pain . cont steroids , 6hr , will continue this dose for now . Received 1st palliative RT to C-T spine and posterior fossa brain today. Will cont. RT on Tuesday @ 1:30pm, Cont. decadron during RT. # acute leukocytosis due to steroids will monitor. #Nutrition: On Clinimax since patient is not eating will continue # Abd pain : likely due to constipation . 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 # Acute Hypercalcemia :resolved DVT Px:SCDs Visit type - Emergency Visit Emergency Visit: Yes ED Registration Date: 10/05/16 Care time: The patient presented to the Emergency Department on the above date and was hospitalized for further evaluation of their emergent condition. - New Patient This patient is new to me today: No - Critical Care Critical Care patient: No - Discharge Referral Referred to [facility] Med P.C.: No
[2016-10-18] MEDS: AMINO ACIDS 4.25%/D5W 1,000 ML IV SCH ×3 (01:58→18:22)
[2016-10-18] MEDS: DEXAMETHASONE SOD PHOSPHATE 10 MG/1 ML VIAL IVPB SCH ×4 (02:58→21:02)
[2016-10-18] MEDS: POLYETHYLENE GLYCOL 3350 119 GM BTL PO SCH ×3 (06:26→23:02)
[2016-10-18] MEDS: DRONABINOL 5 MG CAPSULE PO SCH ×2 (06:27→18:20)
[2016-10-18 07:23] LABS: MCH 29.2 pg (25.7-33.7); MCHC 33.7 g/dl (32.0-35.9); MEAN CELL VOLUME 86.7 fl (80-96); PLATELET COUNT 141 K/MM3 (134-434); WHITE BLOOD COUNT 25.6 K/mm3 (4.0-10.0)
[2016-10-18 07:58] LABS: CALCIUM 8.7 mg/dL (8.5-10.1); CREATININE 1.4 mg/dL (0.7-1.3)
[2016-10-18] MEDS: FAMOTIDINE 20 MG/50 ML IVPB 50 ML IVPB SCH ×2 (09:12→23:02)
[2016-10-18] MEDS: SENNOSIDES/DOCUSATE COMBO (SENNA PLUS) TABLET (UD) PO SCH ×2 (09:13→23:02)
[2016-10-18] MEDS: amLODIPine BESYLATE 10 MG TABLET (FP) PO SCH (09:13)
[2016-10-18 10:32] LABS: PLATELET ESTIMATE SLT DECREASED (NORMAL)
[2016-10-18] MEDS: morphine CARPU-JECT 2 MG/1 ML DISP.SYRIN IVPUSH PRN ×2 (13:00→23:03)
[2016-10-18] MEDS ORDERED: morphine CARPU-JECT 4 MG/1 ML DISP.SYRIN ONE (13:04)
[2016-10-18] MEDS: ONDANSETRON 4 MG/2 ML VIAL IVPB PRN (13:35)
--- NOTE | 2016-10-18 14:40 | PN ---
Progress Note, Physician History of Present Illness: Pt seen and examined at bedside. He still has poor intake. He denies shortness of breath. - Current Medication List Current Medications: Active Medications Amlodipine Besylate (Norvasc -) 10 mg PO DAILY [facility] Last Admin: 10/18/16 09:13 Dose: 10 mg Dexamethasone Sodium Phosphate (Decadron Injection -) 6 mg IVPB Q6H-IV [facility] Last Admin: 10/18/16 09:12 Dose: 6 mg Dronabinol (Marinol -) 5 mg PO BIDAC [facility] Last Admin: 10/18/16 06:27 Dose: 5 mg Famotidine/Sodium Chloride (Pepcid 20 Mg Premixed Ivpb -) 50 mls @ 100 mls/hr IVPB BID [facility] Last Admin: 10/18/16 09:12 Dose: 100 mls/hr Amino Acids (Clinimix -) 1,000 mls @ 83 mls/hr IV Q12H [facility] Last Admin: 10/18/16 14:34 Dose: Not Given Morphine Sulfate (Morphine Injection -) 3 mg IVPUSH Q3H PRN PRN Reason: PAIN Last Admin: 10/18/16 13:00 Dose: 3 mg Ondansetron HCl (Zofran Injection) 4 mg IVPB Q4H PRN PRN Reason: NAUSEA AND/OR VOMITING Last Admin: 10/18/16 13:35 Dose: 4 mg Polyethylene Glycol (Miralax (For Daily Use) -) 17 gm PO TID [facility] Last Admin: 10/18/16 14:34 Dose: Not Given Senna/Docusate Sodium (Pericolace -) 1 tablet PO BID [facility] Last Admin: 10/18/16 09:13 Dose: 1 tablet - Objective Vital Signs: Vital Signs Temperature 98 F 10/18/16 10:00 Pulse Rate 85 10/18/16 10:00 Respiratory Rate 18 10/18/16 10:00 Blood Pressure 153/84 10/18/16 10:00 O2 Sat by Pulse Oximetry (%) 97 10/18/16 09:00 Constitutional: Yes: Calm Eyes: Yes: Conjunctiva Clear HENT: Yes: Atraumatic Neck: Yes: Supple Cardiovascular: Yes: S1, S2 Respiratory: Yes: CTA Bilaterally Gastrointestinal: Yes: Normal Bowel Sounds, Soft Genitourinary: Yes: WNL Musculoskeletal: Yes: Muscle Weakness Edema: No Neurological: Yes: Oriented Psychiatric: Yes: Oriented Labs: CBC, BMP 10/18/16 06:00 10/18/16 06:00 INR, PTT INR 1.00 (0.82-1.09) 10/08/16 08:48 Problem List - Problems (1) Cervical spinal mass Code(s): G95.9 - DISEASE OF SPINAL CORD, UNSPECIFIED (2) Mass of right lung Code(s): R91.8 - OTHER NONSPECIFIC ABNORMAL FINDING OF LUNG FIELD (3) Right hand weakness Code(s): M62.81 - MUSCLE WEAKNESS (GENERALIZED) (4) CKD (chronic kidney disease) Code(s): N18.9 - CHRONIC KIDNEY DISEASE, UNSPECIFIED Assessment/Plan Current Medications Generic Name Dose Route Start Last Admin Trade Name Freq PRN Reason Stop Dose Admin Amlodipine Besylate 10 mg 10/05/16 15:00 10/18/16 09:13 Norvasc - PO 10 mg DAILY TANIA Administration Dexamethasone Sodium Phosphate 6 mg 10/11/16 21:15 10/18/16 09:12 Decadron Injection - IVPB 6 mg Q6H-IV TANIA Administration Dronabinol 5 mg 10/15/16 16:30 10/18/16 06:27 Marinol - PO 5 mg BIDAC TANIA Administration Famotidine/Sodium Chloride 50 mls @ 100 mls/hr 10/14/16 18:00 10/18/16 09:12 Pepcid 20 Mg Premixed Ivpb - IVPB 100 mls/hr BID TANIA Administration Amino Acids 1,000 mls @ 83 mls/hr 10/15/16 13:40 10/18/16 14:34 Clinimix - IV Not Given Q12H TANIA Morphine Sulfate 3 mg 10/18/16 13:02 10/18/16 13:00 Morphine Injection - IVPUSH 3 mg Q3H PRN Administration PAIN Ondansetron HCl 4 mg 10/13/16 16:17 10/18/16 13:35 Zofran Injection IVPB 4 mg Q4H PRN Administration NAUSEA AND/OR VOMITING Polyethylene Glycol 17 gm 10/15/16 14:00 10/18/16 14:34 Miralax (For Daily Use) - PO Not Given TID TANIA Senna/Docusate Sodium 1 tablet 10/11/16 22:00 10/18/16 09:13 Pericolace - PO 1 tablet BID TANIA Administration Impression 1. CKD 2. HTN 3. lung cancer 4. metastatic disease 5. hypercalcemia Plan - renal function stable - pt does not want any more workup - cont wth clinimix - encourage PO intake - avoid nsaids - cont norvasc - check renal ultrasound if pt agrees Dr Mina
--- NOTE | 2016-10-18 15:01 | PN ---
Progress Note (short form) - Note Progress Note: Patient refused to go to Rtx due to feeling very nauseas Vital Signs Temperature 98 F 10/18/16 10:00 Pulse Rate 85 10/18/16 10:00 Respiratory Rate 18 10/18/16 10:00 Blood Pressure 153/84 10/18/16 10:00 O2 Sat by Pulse Oximetry (%) 97 10/18/16 09:00 GENERAL: The patient is awake, alert, and fully oriented, in no acute distress, cachectic. HEAD: Normal with no signs of trauma. EYES:extraocular movements intact. ENT: moist mucous membranes. NECK: Trachea midline, full range of motion, supple. LUNGS: Breath sounds equal, clear to auscultation bilaterally, no wheezes, no crackles, no accessory muscle use. HEART: Regular rate and rhythm, S1, S2 without murmur, rub or gallop. ABDOMEN: Soft, mild tenderness in lower abdomen, no rebound tenderness, nl BS, distended, normoactive bowel sounds, no hepatosplenomegaly, no masses. EXTREMITIES: no edema. No clubbing, no cyanosis NEUROLOGICAL: Cranial nerves II through XII grossly intact. Normal speech, gait not observed. PSYCH: Normal mood, normal affect. CBCD WBC 25.6 K/mm3 (4.0-10.0) H 10/18/16 06:00 RBC 4.69 M/mm3 (4.00-5.60) 10/18/16 06:00 Hgb 13.7 GM/dL (11.7-16.9) 10/18/16 06:00 Hct 40.7 % (35.4-49) 10/18/16 06:00 MCV 86.7 fl (80-96) 10/18/16 06:00 MCHC 33.7 g/dl (32.0-35.9) 10/18/16 06:00 RDW 14.0 % (11.9-15.9) 10/18/16 06:00 Plt Count 141 K/MM3 (134-434) 10/18/16 06:00 MPV 9.0 fl (7.5-11.1) 10/18/16 06:00 CMP Sodium 137 mmol/L (136-145) 10/18/16 06:00 Potassium 3.9 mmol/L (3.5-5.1) 10/18/16 06:00 Chloride 104 mmol/L (98-107) 10/18/16 06:00 Carbon Dioxide 19 mmol/L (21-32) L 10/18/16 06:00 Anion Gap 14 (8-16) 10/18/16 06:00 BUN 88 mg/dL (7-18) H 10/18/16 06:00 Creatinine 1.4 mg/dL (0.7-1.3) H 10/18/16 06:00 Creat Clearance w eGFR 50.40 (>60) 10/15/16 08:20 Random Glucose 109 mg/dL (74-106) H 10/18/16 06:00 Calcium 8.7 mg/dL (8.5-10.1) 10/18/16 06:00 Total Bilirubin 0.5 mg/dL (0.2-1.0) 10/15/16 08:20 AST 16 U/L (15-37) D 10/15/16 08:20 ALT 44 U/L (12-78) D 10/15/16 08:20 Alkaline Phosphatase 64 U/L (45-117) 10/15/16 08:20 Total Protein 5.8 g/dl (6.4-8.2) L 10/15/16 08:20 Albumin 2.6 g/dl (3.4-5.0) L D 10/15/16 08:20 Current Medications Generic Name Dose Route Start Last Admin Trade Name Freq PRN Reason Stop Dose Admin Amlodipine Besylate 10 mg 10/05/16 15:00 10/18/16 09:13 Norvasc - PO 10 mg DAILY TANIA Administration Dexamethasone Sodium Phosphate 6 mg 10/11/16 21:15 10/18/16 14:44 Decadron Injection - IVPB 6 mg Q6H-IV TANIA Administration Dronabinol 5 mg 10/15/16 16:30 10/18/16 06:27 Marinol - PO 5 mg BIDAC TANIA Administration Famotidine/Sodium Chloride 50 mls @ 100 mls/hr 10/14/16 18:00 10/18/16 09:12 Pepcid 20 Mg Premixed Ivpb - IVPB 100 mls/hr BID TANIA Administration Amino Acids 1,000 mls @ 83 mls/hr 10/15/16 13:40 10/18/16 14:34 Clinimix - IV Not Given Q12H TANIA Morphine Sulfate 3 mg 10/18/16 13:02 10/18/16 13:00 Morphine Injection - IVPUSH 3 mg Q3H PRN Administration PAIN Ondansetron HCl 4 mg 10/13/16 16:17 10/18/16 13:35 Zofran Injection IVPB 4 mg Q4H PRN Administration NAUSEA AND/OR VOMITING Polyethylene Glycol 17 gm 10/15/16 14:00 10/18/16 14:34 Miralax (For Daily Use) - PO Not Given TID TANIA Senna/Docusate Sodium 1 tablet 10/11/16 22:00 10/18/16 09:13 Pericolace - PO 1 tablet BID TANIA Administration Home Medications Medication Instructions Recorded NK [No Known Home Medication] 10/05/16 A/P: 66 y/o man with no medical care for a while who presented with Right upper ext weakness. # Acute RUE weakness, due to C spine mass with compression continues. Primary is lung cancer. 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 RTx to cervical lesion after tissue diagnosis .s/p one treatment , patient is refusing to go today since feeling nauseas and in pain. Received 1st palliative RT to C-T spine and posterior fossa brain .Going in am for 2nd treatment # acute leukocytosis due to steroids continues . #Nutrition: On Clinimax since patient is not eating will continue # Abd pain : likely due to constipation . 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 # Acute Hypercalcemia :resolved DVT Px:SCDs Visit type - Emergency Visit Emergency Visit: Yes ED Registration Date: 10/05/16 Care time: The patient presented to the Emergency Department on the above date and was hospitalized for further evaluation of their emergent condition. - New Patient This patient is new to me today: No - Critical Care Critical Care patient: No - Discharge Referral Referred to [facility] Med P.C.: No
--- NOTE | 2016-10-18 18:35 | PN ---
Progress Note (short form) - Note Progress Note: Pt. was visited at first this morning. He was resting comfortably. This evening he was visited once again. This time he appeared to be in an agitated state moving his head with eyes closed from side to side in apparent discomfort. His sister was present. She and I discussed his situation and she indicated that he had no appetite and was in severe pain. I plan to try to work with him tomorrow if he is receptive to the interventions. Jay Marie Psy.D. Problem List - Problems (1) Right hand weakness Code(s): M62.81 - MUSCLE WEAKNESS (GENERALIZED)
[2016-10-18] MEDS ORDERED: PT OWN MED DRAWER 7, Y5N ONE (21:12)
[2016-10-19] MEDS: DEXAMETHASONE SOD PHOSPHATE 10 MG/1 ML VIAL IVPB SCH ×4 (02:40→21:54)
[2016-10-19] MEDS: AMINO ACIDS 4.25%/D5W 1,000 ML IV SCH ×2 (02:40→18:13)
[2016-10-19] MEDS: POLYETHYLENE GLYCOL 3350 119 GM BTL PO SCH ×3 (06:29→22:56)
[2016-10-19] MEDS: DRONABINOL 5 MG CAPSULE PO SCH ×2 (06:31→16:57)
[2016-10-19] MEDS: morphine CARPU-JECT 2 MG/1 ML DISP.SYRIN IVPUSH PRN (06:31)
--- NOTE | 2016-10-19 08:05 | PN ---
Progress Note (short form) - Note Progress Note: Patient seen and examined Denies significant pains. Somewhat sleepy. Complains of constipation-- requests enema Occasional nausea reported , but currently denies same. ROS No headache, diplopia ,epistaxis, dysphagia,occasional nausea, no emesis, constipation, anorexia, no significant pains, no dysuria, hematuria, no musculoskeletal pains,, still with poorly functioning of RUE Last Vital Signs Temp Pulse Resp BP Pulse Ox 98.7 F 70 20 136/76 97 10/19/16 06:30 10/19/16 06:30 10/19/16 06:30 10/19/16 06:30 10/18/16 09:00 HEENT: LO, EOM Intact Oropharynx: No thrush, No mucositis Neck: Supple Cor: RSR, No murmurs, No gallops Lungs: Clear to P&A Abd: Soft, Normal bowel sounds, No organomegaly,somewhat distended, tympanitic Ext:No significant edema LE, Weakness RUE Skin: No rashes, Integument intact CBC, BMP 10/18/16 06:00 10/18/16 06:00 Current Medications Generic Name Dose Route Start Last Admin Trade Name Freq PRN Reason Stop Dose Admin Amlodipine Besylate 10 mg 10/05/16 15:00 10/18/16 09:13 Norvasc - PO 10 mg DAILY TANIA Administration Dexamethasone Sodium Phosphate 6 mg 10/11/16 21:15 10/19/16 02:40 Decadron Injection - IVPB 6 mg Q6H-IV TANIA Administration Dronabinol 5 mg 10/15/16 16:30 10/19/16 06:31 Marinol - PO 5 mg BIDAC TANIA Administration Famotidine/Sodium Chloride 50 mls @ 100 mls/hr 10/14/16 18:00 10/18/16 23:02 Pepcid 20 Mg Premixed Ivpb - IVPB 100 mls/hr BID TANIA Administration Amino Acids 1,000 mls @ 83 mls/hr 10/15/16 13:40 10/19/16 02:40 Clinimix - IV 83 mls/hr Q12H TANIA Administration Morphine Sulfate 3 mg 10/18/16 13:02 10/19/16 06:31 Morphine Injection - IVPUSH 3 mg Q3H PRN Administration PAIN Ondansetron HCl 4 mg 10/13/16 16:17 10/18/16 13:35 Zofran Injection IVPB 4 mg Q4H PRN Administration NAUSEA AND/OR VOMITING Polyethylene Glycol 17 gm 10/15/16 14:00 10/19/16 06:29 Miralax (For Daily Use) - PO Not Given TID TANIA Senna/Docusate Sodium 1 tablet 10/11/16 22:00 10/18/16 23:02 Pericolace - PO 1 tablet BID TANIA Administration Impression: Large cell 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 Marie following Nausea- raise zofran to 8 mg q 8 h prn Continue with PT
[2016-10-19] MEDS ORDERED: SODIUM PHOSPHATE/NA BIPHOS 133 ML ENEMA PR ONE (08:30)
[2016-10-19] MEDS ORDERED: PT OWN MED DRAWER 7, Y5N ONE (09:23)
[2016-10-19] MEDS: SENNOSIDES/DOCUSATE COMBO (SENNA PLUS) TABLET (UD) PO SCH ×2 (09:26→22:56)
[2016-10-19] MEDS: amLODIPine BESYLATE 10 MG TABLET (FP) PO SCH (09:26)
[2016-10-19] MEDS: FAMOTIDINE 20 MG/50 ML IVPB 50 ML IVPB SCH ×2 (09:26→22:57)
[2016-10-19] MEDS: Methylnaltrexone Bromide 12 MG/0.6 ML KIT SQ SCH (10:49)
--- NOTE | 2016-10-19 10:50 | PN ---
Progress Note (short form) - Note Progress Note: The patient was alert but not receptive to any psychological treatment. He stated he was not in pain, appetite was still absent, and he did not sleep well. He was advised to ask for me to see him if he would like interventions. Jay Marie Psy.D. Problem List - Problems (1) Right hand weakness Code(s): M62.81 - MUSCLE WEAKNESS (GENERALIZED)
--- NOTE | 2016-10-19 11:53 | PN ---
Physical Exam: SUBJECTIVE: Patient seen and examined. He is lying in his bed with closed eyes. He is complaining of constipation and lack f appetite. He refused RT yesterday bc he was not feeling well. OBJECTIVE: Vital Signs Period Temp Pulse Resp BP Sys/Ricci Pulse Ox Last 24 Hr 97.3 F-98.7 F 70-112 20-24 135-144/74-95 The pt refused physical examination. Active Medications Generic Name Dose Route Start Last Admin Trade Name Freq PRN Reason Stop Dose Admin Amlodipine Besylate 10 mg 10/05/16 15:00 10/19/16 09:26 Norvasc - PO 10 mg DAILY TANIA Administration Dexamethasone Sodium Phosphate 6 mg 10/11/16 21:15 10/19/16 08:33 Decadron Injection - IVPB 6 mg Q6H-IV TANIA Administration Dronabinol 5 mg 10/15/16 16:30 10/19/16 06:31 Marinol - PO 5 mg BIDAC TANIA Administration Famotidine/Sodium Chloride 50 mls @ 100 mls/hr 10/14/16 18:00 10/19/16 09:26 Pepcid 20 Mg Premixed Ivpb - IVPB 100 mls/hr BID TANIA Administration Amino Acids 1,000 mls @ 83 mls/hr 10/15/16 13:40 10/19/16 02:40 Clinimix - IV 83 mls/hr Q12H TANIA Administration Methylnaltrexone [place] 8 mg 10/19/16 10:00 10/19/16 10:49 Relistor - SQ 8 mg DAILY TANIA Administration Morphine Sulfate 3 mg 10/18/16 13:02 10/19/16 06:31 Morphine Injection - IVPUSH 3 mg Q3H PRN Administration PAIN Ondansetron HCl 8 mg 10/19/16 08:06 Zofran Injection IVPB Q8H PRN NAUSEA Polyethylene Glycol 17 gm 10/15/16 14:00 10/19/16 06:29 Miralax (For Daily Use) - PO Not Given TID TANIA Senna/Docusate Sodium 1 tablet 10/11/16 22:00 10/19/16 09:26 Pericolace - PO 1 tablet BID TANIA Administration ASSESSMENT/PLAN: CXR: prominent right hilium, possibility of hiliar mass MRI: Outside MRI of C-spine with C-6/C-7 mass with osseous destruction. Mass extends into spinal canal displacing the spinal cord to L of the midline and severe right neural foramina and right lateral recess narrowing. Has central spinal canal stenosis and discogenic disease as well. CT chest/abdomen/pelvis; large mass in right lower lobe, scattered nodules in lungs, hydrocele on right kidney, no abdominal pathology MRI brain:2.7x2.5x2 cm enhancing right cerebellar hemispheric mass lesion consistent with metastatic disease. MRI cervical spine;Neoplastic disease is seen involving the right lower cervical /upper thoracic spine as discussed with resultant mild to moderate leftward spinal cord displacement. This finding demonstrates no gross interval change in comparison to a previous MRI study of 09/08/2016 (performed at a different facility). Accurate comparison however is difficult as exam coverage on the previous study did not fully include the described neoplastic lesion. On the current exam there is probable identification of neoplastic disease extending contiguously into the right brachial plexus. There is also contiguous neoplastic erosion of the right first and second ribs posteriorly. CT scan of the cervical spine w/o contrast: Examination was performed for radiation therapy. Compared to prior MRI of the cervical spine dated 10/07/2016 Focal bone destruction/metastasis is again seen involving right lateral aspect of C7 vertebral body as well as the right lamina and posterior spinous process. Bone destruction/metastasis also involving right lateral aspect of T1 vertebral body. An associated large soft tissue mass extending into the corresponding neural foramina, spinal canal with suggestion of mild shift of the cord towards the left as well as a large right paraspinal soft tissue component are again seen. An approximately 3 cm pleural-based mass is again seen in superior segment of the right lower lobe consistent with clinical history of lung cancer. A small pulmonary nodule again seen in the right upper lobe and another tiny juxtapleural nodule in the right upper lobe, posteriorly. The height and alignment of the vertebral bodies appear unremarkable. The airway is patent and symmetric without gross narrowing. No gross enlarged lymph nodes in the neck on this noncontrast examination. Moderate degenerative disc disease at C6-C7 anterolisthesis extent C5-C6 and C4-C5 level with mild posterior spur formation bilateral uncovertebral hypertrophy mainly at C5-C6 level ASSESSMENT/PLAN: 65 year old male with no PMH presents to the hospital referred from Dr. Claros office. He is complaining of right hand weakness and numbness that started in May.Today he is also complaining of pain in the cervical spine, weakness in right UE, especially in hand and pain in the tip of his fingers, and no sensation in 4th and 5th digits of R hand. The pt states that he lost 20 lbs in the past 5 months. He is admitted to med surg due to cervical mass. 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 He will have it done today. Total of 10 treatments. -f/u Oncology consultation: cont. 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; -cerebellar mass will require radiation -neurological assessment -right lung mass and multiple nodules -continue steroids -f/u Psychology/Pastoral care/Palliative care Constipation and lack of appetite: -due to pain medications -Miralax TID -Pericolace 1 tab BID -Clinimix IV, increased thre rate to 83 ml/hr today -Marinol 5 mg before meals -Methylnaltrexone bromide 8 mg SQ qd -f/u GI consultation Hypertension: -no home meds -started Norvasc 10 mg Daily CKD: -f/u Nephrology consult, kidney and bladder US, the pt refused -no known baseline -avoid nephrotoxic substances DVT PPX: -SCDs F/E/N: No/No changes/low Na Disposition; Med surg, radiation therapy today, will continue treatments in the hospital Problem List - Problems (1) Cervical spinal mass Code(s): G95.9 - DISEASE OF SPINAL CORD, UNSPECIFIED (2) Right hand weakness Code(s): M62.81 - MUSCLE WEAKNESS (GENERALIZED) (3) Mass of right lung Code(s): R91.8 - OTHER NONSPECIFIC ABNORMAL FINDING OF LUNG FIELD Visit type - Emergency Visit Emergency Visit: Yes ED Registration Date: 10/05/16 Care time: The patient presented to the Emergency Department on the above date and was hospitalized for further evaluation of their emergent condition. - New Patient This patient is new to me today: No - Critical Care Critical Care patient: No - Discharge Referral Referred to [facility] Med P.C[facility] No
[2016-10-19] MEDS ORDERED: oxyCODONE HCL 5 MG TABLET PO PRN (12:03)
--- NOTE | 2016-10-19 15:37 | PN ---
Progress Note, Physician History of Present Illness: Pt seen and examined. He complains of fatigue. He denies shortness of breath. - Current Medication List Current Medications: Active Medications Amlodipine Besylate (Norvasc -) 10 mg PO DAILY [facility] Last Admin: 10/19/16 09:26 Dose: 10 mg Dexamethasone Sodium Phosphate (Decadron Injection -) 6 mg IVPB Q6H-IV [facility] Last Admin: 10/19/16 15:08 Dose: 6 mg Dronabinol (Marinol -) 5 mg PO BIDAC [facility] Last Admin: 10/19/16 06:31 Dose: 5 mg Famotidine/Sodium Chloride (Pepcid 20 Mg Premixed Ivpb -) 50 mls @ 100 mls/hr IVPB BID [facility] Last Admin: 10/19/16 09:26 Dose: 100 mls/hr Amino Acids (Clinimix -) 1,000 mls @ 83 mls/hr IV Q12H [facility] Last Admin: 10/19/16 02:40 Dose: 83 mls/hr Methylnaltrexone [place] (Relistor -) 8 mg SQ DAILY [facility] Last Admin: 10/19/16 10:49 Dose: 8 mg Morphine Sulfate (Morphine Injection -) 3 mg IVPUSH Q3H PRN PRN Reason: PAIN Last Admin: 10/19/16 06:31 Dose: 3 mg Ondansetron HCl (Zofran Injection) 8 mg IVPB Q8H PRN PRN Reason: NAUSEA Oxycodone HCl (Roxicodone -) 10 mg PO Q3H PRN PRN Reason: SEVERE PAIN Polyethylene Glycol (Miralax (For Daily Use) -) 17 gm PO TID [facility] Last Admin: 10/19/16 15:08 Dose: Not Given Senna/Docusate Sodium (Pericolace -) 1 tablet PO BID [facility] Last Admin: 10/19/16 09:26 Dose: 1 tablet - Objective Vital Signs: Vital Signs Temperature 97.5 F L 10/19/16 09:00 Pulse Rate 106 H 10/19/16 09:00 Respiratory Rate 24 10/19/16 09:00 Blood Pressure 139/83 10/19/16 09:00 O2 Sat by Pulse Oximetry (%) 97 10/18/16 09:00 Constitutional: Yes: Calm Eyes: Yes: Conjunctiva Clear HENT: Yes: Atraumatic Neck: Yes: Supple Cardiovascular: Yes: S1, S2 Respiratory: Yes: CTA Bilaterally Gastrointestinal: Yes: Soft Genitourinary: Yes: WNL Musculoskeletal: Yes: WNL Edema: No Neurological: Yes: Oriented Psychiatric: Yes: Oriented Labs: CBC, BMP 10/18/16 06:00 10/18/16 06:00 INR, PTT INR 1.00 (0.82-1.09) 10/08/16 08:48 Problem List - Problems (1) Cervical spinal mass Code(s): G95.9 - DISEASE OF SPINAL CORD, UNSPECIFIED (2) Mass of right lung Code(s): R91.8 - OTHER NONSPECIFIC ABNORMAL FINDING OF LUNG FIELD (3) Right hand weakness Code(s): M62.81 - MUSCLE WEAKNESS (GENERALIZED) (4) CKD (chronic kidney disease) Code(s): N18.9 - CHRONIC KIDNEY DISEASE, UNSPECIFIED Assessment/Plan Current Medications Generic Name Dose Route Start Last Admin Trade Name Freq PRN Reason Stop Dose Admin Amlodipine Besylate 10 mg 10/05/16 15:00 10/19/16 09:26 Norvasc - PO 10 mg DAILY TANIA Administration Dexamethasone Sodium Phosphate 6 mg 10/11/16 21:15 10/19/16 15:08 Decadron Injection - IVPB 6 mg Q6H-IV TANIA Administration Dronabinol 5 mg 10/15/16 16:30 10/19/16 06:31 Marinol - PO 5 mg BIDAC TANIA Administration Famotidine/Sodium Chloride 50 mls @ 100 mls/hr 10/14/16 18:00 10/19/16 09:26 Pepcid 20 Mg Premixed Ivpb - IVPB 100 mls/hr BID TANIA Administration Amino Acids 1,000 mls @ 83 mls/hr 10/15/16 13:40 10/19/16 02:40 Clinimix - IV 83 mls/hr Q12H TANIA Administration Methylnaltrexone [place] 8 mg 10/19/16 10:00 10/19/16 10:49 Relistor - SQ 8 mg DAILY TANIA Administration Morphine Sulfate 3 mg 10/18/16 13:02 10/19/16 06:31 Morphine Injection - IVPUSH 3 mg Q3H PRN Administration PAIN Ondansetron HCl 8 mg 10/19/16 08:06 Zofran Injection IVPB Q8H PRN NAUSEA Oxycodone HCl 10 mg 10/19/16 12:03 Roxicodone - PO Q3H PRN SEVERE PAIN Polyethylene Glycol 17 gm 10/15/16 14:00 10/19/16 15:08 Miralax (For Daily Use) - PO Not Given TID TANIA Senna/Docusate Sodium 1 tablet 10/11/16 22:00 10/19/16 09:26 Pericolace - PO 1 tablet BID TANIA Administration Impression 1. CKD 2. HTN 3. lung cancer 4. metastatic disease 5. hypercalcemia Plan - no new labs - does not want ultrasound - will follow PRN - cont wth clinimix - encourage PO intake - avoid nsaids - cont norvasc - check renal ultrasound if pt agrees Dr Mina
[2016-10-19] MEDS: ONDANSETRON 4 MG/2 ML VIAL IVPB PRN (17:47)
--- NOTE | 2016-10-19 20:50 | PN ---
Teaching Attending Note Name of Resident: Myra Erazo ATTENDING PHYSICIAN STATEMENT I saw and evaluated the patient. I reviewed the resident's note and discussed the case with the resident. I agree with the resident's findings and plan as documented. SUBJECTIVE: Patient is feeling better today with no acute distress. Not nauseas today ,no vomiting. OBJECTIVE: Vital Signs Temperature 98.2 F 10/19/16 16:25 Pulse Rate 107 H 10/19/16 16:25 Respiratory Rate 24 10/19/16 16:25 Blood Pressure 149/82 10/19/16 16:25 O2 Sat by Pulse Oximetry (%) 97 10/18/16 09:00 GENERAL: The patient is awake, alert, and fully oriented, in no acute distress, cachectic. HEAD: Normal with no signs of trauma. EYES:extraocular movements intact. ENT: moist mucous membranes. NECK: Trachea midline, full range of motion, supple. LUNGS: Breath sounds equal, clear to auscultation bilaterally, no wheezes, no crackles, no accessory muscle use. HEART: Regular rate and rhythm, S1, S2 without murmur, rub or gallop. ABDOMEN: Soft, mild tenderness in lower abdomen, no rebound tenderness, nl BS, distended, normoactive bowel sounds, no hepatosplenomegaly, no masses. EXTREMITIES: no edema. No clubbing, no cyanosis NEUROLOGICAL: Cranial nerves II through XII grossly intact. Normal speech, gait not observed. PSYCH: Normal mood, normal affect. CBCD WBC 25.6 K/mm3 (4.0-10.0) H 10/18/16 06:00 RBC 4.69 M/mm3 (4.00-5.60) 10/18/16 06:00 Hgb 13.7 GM/dL (11.7-16.9) 10/18/16 06:00 Hct 40.7 % (35.4-49) 10/18/16 06:00 MCV 86.7 fl (80-96) 10/18/16 06:00 MCHC 33.7 g/dl (32.0-35.9) 10/18/16 06:00 RDW 14.0 % (11.9-15.9) 10/18/16 06:00 Plt Count 141 K/MM3 (134-434) 10/18/16 06:00 MPV 9.0 fl (7.5-11.1) 10/18/16 06:00 CMP Sodium 137 mmol/L (136-145) 10/18/16 06:00 Potassium 3.9 mmol/L (3.5-5.1) 10/18/16 06:00 Chloride 104 mmol/L (98-107) 10/18/16 06:00 Carbon Dioxide 19 mmol/L (21-32) L 10/18/16 06:00 Anion Gap 14 (8-16) 10/18/16 06:00 BUN 88 mg/dL (7-18) H 10/18/16 06:00 Creatinine 1.4 mg/dL (0.7-1.3) H 10/18/16 06:00 Creat Clearance w eGFR 50.40 (>60) 10/15/16 08:20 Random Glucose 109 mg/dL (74-106) H 10/18/16 06:00 Calcium 8.7 mg/dL (8.5-10.1) 10/18/16 06:00 Total Bilirubin 0.5 mg/dL (0.2-1.0) 10/15/16 08:20 AST 16 U/L (15-37) D 10/15/16 08:20 ALT 44 U/L (12-78) D 10/15/16 08:20 Alkaline Phosphatase 64 U/L (45-117) 10/15/16 08:20 Total Protein 5.8 g/dl (6.4-8.2) L 10/15/16 08:20 Albumin 2.6 g/dl (3.4-5.0) L D 10/15/16 08:20 Current Medications Generic Name Dose Route Start Last Admin Trade Name Freq PRN Reason Stop Dose Admin Amlodipine Besylate 10 mg 10/05/16 15:00 10/19/16 09:26 Norvasc - PO 10 mg DAILY TANIA Administration Dexamethasone Sodium Phosphate 6 mg 10/11/16 21:15 10/19/16 15:08 Decadron Injection - IVPB 6 mg Q6H-IV TANIA Administration Dronabinol 5 mg 10/15/16 16:30 10/19/16 16:57 Marinol - PO 5 mg BIDAC TANIA Administration Famotidine/Sodium Chloride 50 mls @ 100 mls/hr 10/14/16 18:00 10/19/16 09:26 Pepcid 20 Mg Premixed Ivpb - IVPB 100 mls/hr BID TANIA Administration Amino Acids 1,000 mls @ 83 mls/hr 10/15/16 13:40 10/19/16 18:13 Clinimix - IV 83 mls/hr Q12H TANIA Administration Methylnaltrexone [place] 8 mg 10/19/16 10:00 10/19/16 10:49 Relistor - SQ 8 mg DAILY TANIA Administration Morphine Sulfate 3 mg 10/18/16 13:02 10/19/16 06:31 Morphine Injection - IVPUSH 3 mg Q3H PRN Administration PAIN Ondansetron HCl 8 mg 10/19/16 08:06 10/19/16 17:47 Zofran Injection IVPB 8 mg Q8H PRN Administration NAUSEA Oxycodone HCl 10 mg 10/19/16 12:03 Roxicodone - PO Q3H PRN SEVERE PAIN Polyethylene Glycol 17 gm 10/15/16 14:00 10/19/16 15:08 Miralax (For Daily Use) - PO Not Given TID TANIA Senna/Docusate Sodium 1 tablet 10/11/16 22:00 10/19/16 09:26 Pericolace - PO 1 tablet BID TANIA Administration Home Medications Medication Instructions Recorded NK [No Known Home Medication] 10/05/16 ASSESSMENT AND PLAN: 66 y/o man with no medical care for a while who presented with Right upper ext weakness. # Acute RUE weakness, due to C spine mass with compression continues. Primary is lung cancer. 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 RTx to cervical lesion started this will be her 1st treatment today , patient refused to go yesterday since was feeling nauseas and in pain. Received 1st palliative RT to C-T spine and posterior fossa brain .Going in am for 2nd treatment # Intarctable nausea and vomiting on Zofran , monitor. # acute leukocytosis due to steroids continues . #Nutrition: On Clinimax since patient is not eating will continue # Abd pain : likely due to constipation . 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 # Acute Hypercalcemia :resolved DVT Px:SCDs Patient once feels better, tolerates food and no nausea or vomting can be discharged home
[2016-10-20] MEDS: DEXAMETHASONE SOD PHOSPHATE 10 MG/1 ML VIAL IVPB SCH ×4 (02:14→21:53)
[2016-10-20] MEDS: POLYETHYLENE GLYCOL 3350 119 GM BTL PO SCH ×3 (06:28→21:53)
[2016-10-20] MEDS: DRONABINOL 5 MG CAPSULE PO SCH ×2 (06:29→16:45)
[2016-10-20] MEDS: AMINO ACIDS 4.25%/D5W 1,000 ML IV SCH ×2 (06:29→23:24)
[2016-10-20] MEDS: FAMOTIDINE 20 MG/50 ML IVPB 50 ML IVPB SCH ×2 (09:51→21:54)
[2016-10-20] MEDS: amLODIPine BESYLATE 10 MG TABLET (FP) PO SCH (09:51)
[2016-10-20] MEDS: SENNOSIDES/DOCUSATE COMBO (SENNA PLUS) TABLET (UD) PO SCH ×2 (09:51→23:24)
[2016-10-20] MEDS: Methylnaltrexone Bromide 12 MG/0.6 ML KIT SQ SCH (10:49)
--- NOTE | 2016-10-20 15:33 | PN ---
Teaching Attending Note Name of Resident: Myra Erazo ATTENDING PHYSICIAN STATEMENT I saw and evaluated the patient. I reviewed the resident's note and discussed the case with the resident. I agree with the resident's findings and plan as documented. SUBJECTIVE:'' I just want to sleep" Vital Signs - 24 hr 10/19/16 10/19/16 10/20/16 16:25 21:24 07:50 Temperature 98.2 F 97.5 F L 98.2 F Pulse Rate 107 H 103 H 101 H Respiratory 24 20 20 Rate Blood Pressure 149/82 130/75 142/87 10/20/16 10/20/16 08:10 10:17 Temperature 96.6 F L 96.3 F L Pulse Rate 97 H 93 H Respiratory 24 22 Rate Blood Pressure 146/83 130/70 OBJECTIVE:GENERAL: The patient is awake, alert, appears cachectic HEAD: Normal with no signs of trauma. EYES: extraocular movements intact ENT: Ears normal, nares patent NECK: Trachea midline LUNGS: Poor inspiratory effort accessory muscle use. Refusing the rest of the exam PSYCH: Depressed mood and affect. 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 Currently on paliative XRT however not tolerating it well and does not want to continue. # Intarctable nausea and vomiting, likely central , on IV Zofran # Intractable pain - receiving IV narcotics Paliative care follow up is appreciated. Consider hospice .
--- NOTE | 2016-10-20 16:11 | PN ---
Physical Exam: SUBJECTIVE: Patient seen and examined. He wants to rest and refused RT today. Yesterday he vomited and was given Zofran. No more nausea and vomiting today.He denies N/V, diarrhea, fever, chills. OBJECTIVE: Vital Signs Period Temp Pulse Resp BP Sys/Ricci Pulse Ox Last 24 Hr 96.3 F-98.2 F 93-107 18-24 127-149/68-87 The pt refused physical examination. Laboratory Results - last 24 hr 10/19/16 16:56 POC Glucometer 101 Active Medications Generic Name Dose Route Start Last Admin Trade Name Freq PRN Reason Stop Dose Admin Amlodipine Besylate 10 mg 10/05/16 15:00 10/20/16 09:51 Norvasc - PO 10 mg DAILY TANIA Administration Dexamethasone Sodium Phosphate 6 mg 10/11/16 21:15 10/20/16 15:01 Decadron Injection - IVPB 6 mg Q6H-IV TANIA Administration Dronabinol 5 mg 10/15/16 16:30 10/20/16 06:29 Marinol - PO Not Given BIDAC TANIA Famotidine/Sodium Chloride 50 mls @ 100 mls/hr 10/14/16 18:00 10/20/16 09:51 Pepcid 20 Mg Premixed Ivpb - IVPB 100 mls/hr BID TANIA Administration Amino Acids 1,000 mls @ 83 mls/hr 10/15/16 13:40 10/20/16 06:29 Clinimix - IV 83 mls/hr Q12H TANIA Administration Methylnaltrexone [place] 8 mg 10/19/16 10:00 10/20/16 10:49 Relistor - SQ 8 mg DAILY TANIA Administration Morphine Sulfate 3 mg 10/18/16 13:02 10/19/16 06:31 Morphine Injection - IVPUSH 3 mg Q3H PRN Administration PAIN Ondansetron HCl 8 mg 10/19/16 08:06 10/19/16 17:47 Zofran Injection IVPB 8 mg Q8H PRN Administration NAUSEA Oxycodone HCl 10 mg 10/19/16 12:03 Roxicodone - PO Q3H PRN SEVERE PAIN Polyethylene Glycol 17 gm 10/15/16 14:00 10/20/16 13:55 Miralax (For Daily Use) - PO Not Given TID TANIA Senna/Docusate Sodium 1 tablet 10/11/16 22:00 10/20/16 09:51 Pericolace - PO 1 tablet BID TANIA Administration CXR: prominent right hilium, possibility of hiliar mass MRI: Outside MRI of C-spine with C-6/C-7 mass with osseous destruction. Mass extends into spinal canal displacing the spinal cord to L of the midline and severe right neural foramina and right lateral recess narrowing. Has central spinal canal stenosis and discogenic disease as well. CT chest/abdomen/pelvis; large mass in right lower lobe, scattered nodules in lungs, hydrocele on right kidney, no abdominal pathology MRI brain:2.7x2.5x2 cm enhancing right cerebellar hemispheric mass lesion consistent with metastatic disease. MRI cervical spine;Neoplastic disease is seen involving the right lower cervical /upper thoracic spine as discussed with resultant mild to moderate leftward spinal cord displacement. This finding demonstrates no gross interval change in comparison to a previous MRI study of 09/08/2016 (performed at a different facility). Accurate comparison however is difficult as exam coverage on the previous study did not fully include the described neoplastic lesion. On the current exam there is probable identification of neoplastic disease extending contiguously into the right brachial plexus. There is also contiguous neoplastic erosion of the right first and second ribs posteriorly. CT scan of the cervical spine w/o contrast: Examination was performed for radiation therapy. Compared to prior MRI of the cervical spine dated 10/07/2016 Focal bone destruction/metastasis is again seen involving right lateral aspect of C7 vertebral body as well as the right lamina and posterior spinous process. Bone destruction/metastasis also involving right lateral aspect of T1 vertebral body. An associated large soft tissue mass extending into the corresponding neural foramina, spinal canal with suggestion of mild shift of the cord towards the left as well as a large right paraspinal soft tissue component are again seen. An approximately 3 cm pleural-based mass is again seen in superior segment of the right lower lobe consistent with clinical history of lung cancer. A small pulmonary nodule again seen in the right upper lobe and another tiny juxtapleural nodule in the right upper lobe, posteriorly. The height and alignment of the vertebral bodies appear unremarkable. The airway is patent and symmetric without gross narrowing. No gross enlarged lymph nodes in the neck on this noncontrast examination. Moderate degenerative disc disease at C6-C7 anterolisthesis extent C5-C6 and C4-C5 level with mild posterior spur formation bilateral uncovertebral hypertrophy mainly at C5-C6 level ASSESSMENT/PLAN: 65 year old male with no PMH presents to the hospital referred from Dr. Claros office. He is complaining of right hand weakness and numbness that started in May.Today he is also complaining of pain in the cervical spine, weakness in right UE, especially in hand and pain in the tip of his fingers, and no sensation in 4th and 5th digits of R hand. The pt states that he lost 20 lbs in the past 5 months. He is admitted to med surg for stage 4 metastatic cancer. 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 Total of 10 treatments. He doesn't want another one today. -f/u Oncology consultation: continue dexamethasone to 6 mg Q6H -f/u pain management recommendations: Morphine, Oxycodone, -cerebellar mass will require radiation -neurological assessment -right lung mass and multiple nodules -f/u Psychology/Pastoral care/Palliative care Constipation/Nausea/Vomiting and lack of appetite: -due to pain medications -Miralax TID -Pericolace 1 tab BID -Clinimix IV, increased thre rate to 83 ml/hr -Marinol 5 mg before meals -Methylnaltrexone bromide 8 mg SQ qd -f/u GI consultation, Severe malnutrition; BMI 17.7 -cont Clinimix and Marinol -low Na diet and Zofran fr nausea Hypertension: -no home meds -started Norvasc 10 mg Daily CKD: -f/u Nephrology consult, kidney and bladder US, the pt refused -no known baseline -avoid nephrotoxic substances DVT PPX: -SCDs F/E/N: No/No changes/low Na Disposition; Med surg, radiation therapy, will continue treatments in the hospital Problem List - Problems (1) Cervical spinal mass Code(s): G95.9 - DISEASE OF SPINAL CORD, UNSPECIFIED (2) Right hand weakness Code(s): M62.81 - MUSCLE WEAKNESS (GENERALIZED) (3) Mass of right lung Code(s): R91.8 - OTHER NONSPECIFIC ABNORMAL FINDING OF LUNG FIELD Visit type - Emergency Visit Emergency Visit: Yes ED Registration Date: 02/07/17 Care time: The patient presented to the Emergency Department on the above date and was hospitalized for further evaluation of their emergent condition. - New Patient This patient is new to me today: No - Critical Care Critical Care patient: No - Discharge Referral Referred to [facility] No
--- NOTE | 2016-10-20 18:54 | PN ---
Progress Note (short form) - Note Progress Note: PAtient seen and examined rue weakness no vomiting STILL WITH ABDOMINAL DISTENTION S/P FLEETS ENEMA YESTERDAY Last Vital Signs Temp Pulse Resp BP Pulse Ox 98.8 F 95 H 18 152/86 96 10/14/16 16:30 10/14/16 16:30 10/14/16 16:30 10/14/16 16:30 10/14/16 09:00 HEENT: LO, EOM Intact Oropharynx: No thrush, No mucositis Cor: RSR, No murmurs, No gallops Lungs: Clear to P&A Abd: Soft, Normal bowel sounds, No organomegaly, mild tenderness to deep palpation. no guarding/rigidity Ext:RUE--3/5 Current Medications Amlodipine Besylate (Norvasc -) 10 mg PO DAILY [facility] Last Admin: 10/14/16 10:13 Dose: 10 mg Dexamethasone Sodium Phosphate (Decadron Injection -) 6 mg IVPB Q6H-IV [facility] Last Admin: 10/14/16 15:24 Dose: 6 mg Amino Acids (Clinimix -) 1,000 mls @ 42 mls/hr IV Q12H [facility] Last Admin: 10/14/16 17:07 Dose: 42 mls/hr Famotidine/Sodium Chloride (Pepcid 20 Mg Premixed Ivpb -) 50 mls @ 100 mls/hr IVPB BID [facility] Last Admin: 10/14/16 17:06 Dose: 100 mls/hr Morphine Sulfate (Morphine Injection -) 3 mg IVPUSH Q4H PRN PRN Reason: PAIN Last Admin: 10/13/16 16:22 Dose: 3 mg Morphine Sulfate (Ms Contin -) 15 mg PO BID [facility] Last Admin: 10/14/16 10:11 Dose: 15 mg Ondansetron HCl (Zofran Injection) 4 mg IVPB Q4H PRN PRN Reason: NAUSEA AND/OR VOMITING Last Admin: 10/14/16 15:26 Dose: 4 mg Oxycodone HCl (Roxicodone -) 10 mg PO Q3H PRN PRN Reason: SEVERE PAIN Last Admin: 10/11/16 18:02 Dose: 10 mg Polyethylene Glycol (Miralax (For Daily Use) -) 17 gm PO DAILY [facility] Last Admin: 10/14/16 10:12 Dose: 17 gm Senna/Docusate Sodium (Pericolace -) 1 tablet PO BID [facility] Last Admin: 10/14/16 10:13 Dose: 1 tablet labs reviewed A/P 66 y/o patient with presumed lung cancer-- RUL mass/multiple lung nodules and C spine lesion with cord displacement /compression. RUE weakness mri brain---rt. 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 Refused RT today. will add xanax prn prior to RT on decadron 6mg Q6h continue miRALAX discussed with sister and patient.
[2016-10-21] MEDS: DEXAMETHASONE SOD PHOSPHATE 10 MG/1 ML VIAL IVPB SCH ×4 (02:12→20:34)
[2016-10-21] MEDS: DRONABINOL 5 MG CAPSULE PO SCH ×2 (06:38→15:42)
[2016-10-21] MEDS: AMINO ACIDS 4.25%/D5W 1,000 ML IV SCH ×3 (09:07→15:40)
[2016-10-21] MEDS: FAMOTIDINE 20 MG/50 ML IVPB 50 ML IVPB SCH ×2 (10:52→21:16)
[2016-10-21] MEDS: ONDANSETRON 4 MG/2 ML VIAL IVPB PRN (13:01)
[2016-10-21] MEDS: ALPRAZolam 0.25 MG TABLET PO PRN (13:04)
[2016-10-21] MEDS ORDERED: morphine CARPU-JECT 4 MG/1 ML DISP.SYRIN ONE (13:27)
[2016-10-21] MEDS ORDERED: morphine CARPU-JECT 4 MG/1 ML DISP.SYRIN IVPUSH ONE (14:00)
[2016-10-21] MEDS: POLYETHYLENE GLYCOL 3350 119 GM BTL PO SCH ×2 (14:04→21:16)
[2016-10-21] MEDS: SENNOSIDES/DOCUSATE COMBO (SENNA PLUS) TABLET (UD) PO SCH ×2 (14:04→21:16)
--- NOTE | 2016-10-21 14:23 | PN ---
Progress Note (short form) - Note Progress Note: Radiation oncology: the patient completed three of 10 planned fractions. Tolerating treatment. I spoke with his daughter who had several questions and I advised her to speak with the social sciences lecturer and Dr. Claros.
[2016-10-21] MEDS: Methylnaltrexone Bromide 12 MG/0.6 ML KIT SQ SCH (15:43)
[2016-10-21] MEDS: amLODIPine BESYLATE 10 MG TABLET (FP) PO SCH (15:43)
--- NOTE | 2016-10-21 16:00 | PN ---
Physical Exam: SUBJECTIVE: Patient seen. He is complaining of feeling weak today. He wants to rest and refused physical examination. He refuses lab work and abdominal x ray as well. OBJECTIVE: Vital Signs Period Temp Pulse Resp BP Sys/Ricci Pulse Ox Last 24 Hr 97.6 F-97.8 F 90-96 18-20 144-158/72-79 97 PE: the pt refused Laboratory Results - last 24 hr 10/20/16 16:45 POC Glucometer 108 Active Medications Generic Name Dose Route Start Last Admin Trade Name Freq PRN Reason Stop Dose Admin Alprazolam 0.25 mg 10/20/16 19:23 10/21/16 13:04 Xanax - PO 0.25 mg BID PRN Administration ANXIETY Amlodipine Besylate 10 mg 10/05/16 15:00 10/21/16 15:43 Norvasc - PO Not Given DAILY [facility] Dexamethasone Sodium Phosphate 6 mg 10/11/16 21:15 10/21/16 15:41 Decadron Injection - IVPB 6 mg Q6H-IV [facility] Administration Dronabinol 5 mg 10/15/16 16:30 10/21/16 15:42 Marinol - PO 5 mg BIDAC [facility] Administration Famotidine/Sodium Chloride 50 mls @ 100 mls/hr 10/14/16 18:00 10/21/16 10:52 Pepcid 20 Mg Premixed Ivpb - IVPB 100 mls/hr BID [facility] Administration Amino Acids 1,000 mls @ 83 mls/hr 10/15/16 13:40 10/21/16 15:40 Clinimix - IV 83 mls/hr Q12H [facility] Administration Methylnaltrexone [place] 8 mg 10/19/16 10:00 10/21/16 15:43 Relistor - SQ Not Given DAILY [facility] Morphine Sulfate 3 mg 10/21/16 14:58 Morphine Injection - IVPUSH Q3H PRN PAIN Ondansetron HCl 8 mg 10/19/16 08:06 10/21/16 13:01 Zofran Injection IVPB 8 mg Q8H PRN Administration NAUSEA Oxycodone HCl 10 mg 10/19/16 12:03 Roxicodone - PO Q3H PRN SEVERE PAIN Polyethylene Glycol 17 gm 10/20/16 22:00 10/21/16 14:04 Miralax (For Daily Use) - PO Not Given BID [facility] Senna/Docusate Sodium 1 tablet 10/11/16 22:00 10/21/16 14:04 Pericolace - PO Not Given BID [facility] CXR: prominent right hilium, possibility of hiliar mass MRI: Outside MRI of C-spine with C-6/C-7 mass with osseous destruction. Mass extends into spinal canal displacing the spinal cord to L of the midline and severe right neural foramina and right lateral recess narrowing. Has central spinal canal stenosis and discogenic disease as well. CT chest/abdomen/pelvis; large mass in right lower lobe, scattered nodules in lungs, hydrocele on right kidney, no abdominal pathology MRI brain:2.7x2.5x2 cm enhancing right cerebellar hemispheric mass lesion consistent with metastatic disease. MRI cervical spine;Neoplastic disease is seen involving the right lower cervical /upper thoracic spine as discussed with resultant mild to moderate leftward spinal cord displacement. This finding demonstrates no gross interval change in comparison to a previous MRI study of 09/08/2016 (performed at a different facility). Accurate comparison however is difficult as exam coverage on the previous study did not fully include the described neoplastic lesion. On the current exam there is probable identification of neoplastic disease extending contiguously into the right brachial plexus. There is also contiguous neoplastic erosion of the right first and second ribs posteriorly. CT scan of the cervical spine w/o contrast: Examination was performed for radiation therapy. Compared to prior MRI of the cervical spine dated 10/07/2016 Focal bone destruction/metastasis is again seen involving right lateral aspect of C7 vertebral body as well as the right lamina and posterior spinous process. Bone destruction/metastasis also involving right lateral aspect of T1 vertebral body. An associated large soft tissue mass extending into the corresponding neural foramina, spinal canal with suggestion of mild shift of the cord towards the left as well as a large right paraspinal soft tissue component are again seen. An approximately 3 cm pleural-based mass is again seen in superior segment of the right lower lobe consistent with clinical history of lung cancer. A small pulmonary nodule again seen in the right upper lobe and another tiny juxtapleural nodule in the right upper lobe, posteriorly. The height and alignment of the vertebral bodies appear unremarkable. The airway is patent and symmetric without gross narrowing. No gross enlarged lymph nodes in the neck on this noncontrast examination. Moderate degenerative disc disease at C6-C7 anterolisthesis extent C5-C6 and C4-C5 level with mild posterior spur formation bilateral uncovertebral hypertrophy mainly at C5-C6 level ASSESSMENT/PLAN: 65 year old male with no PMH presents to the hospital referred from Dr. Claors office. He is complaining of right hand weakness and numbness that started in May.Today he is also complaining of pain in the cervical spine, weakness in right UE, especially in hand and pain in the tip of his fingers, and no sensation in 4th and 5th digits of R hand. The pt states that he lost 20 lbs in the past 5 months. He is admitted to med surg for stage 4 metastatic cancer. 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 Total of 10 treatments. He tolerated that well today. -f/u Oncology consultation: continue dexamethasone to 6 mg Q6H -f/u pain management recommendations: Morphine, Oxycodone, -cerebellar mass will require radiation -neurological assessment -right lung mass and multiple nodules -f/u Psychology/Pastoral care/Palliative care Constipation/Nausea/Vomiting and lack of appetite: -due to pain medications, fleet enema yesterday -Miralax TID -Pericolace 1 tab BID -Clinimix IV, increased thre rate to 83 ml/hr -Marinol 5 mg before meals -Methylnaltrexone bromide 8 mg SQ qd -f/u GI consultation -will obtain abd x ray today Severe malnutrition; BMI 17.7 -cont Clinimix and Marinol -low Na diet and Zofran fr nausea Hypertension: -no home meds -started Norvasc 10 mg Daily CKD: -f/u Nephrology consult, kidney and bladder US, the pt refused -no known baseline -avoid nephrotoxic substances DVT PPX: -SCDs F/E/N: No/No changes/No Disposition; Med surg, radiation therapy, will continue treatments in the hospital Problem List - Problems (1) Cervical spinal mass Code(s): G95.9 - DISEASE OF SPINAL CORD, UNSPECIFIED (2) Right hand weakness Code(s): M62.81 - MUSCLE WEAKNESS (GENERALIZED) (3) Mass of right lung Code(s): R91.8 - OTHER NONSPECIFIC ABNORMAL FINDING OF LUNG FIELD Visit type - Emergency Visit Emergency Visit: Yes ED Registration Date: 10/05/16 Care time: The patient presented to the Emergency Department on the above date and was hospitalized for further evaluation of their emergent condition. - New Patient This patient is new to me today: No - Critical Care Critical Care patient: No - Discharge Referral Referred to [facility] No
--- NOTE | 2016-10-21 16:04 | PN ---
Teaching Attending Note Name of Resident: Myra Erazo ATTENDING PHYSICIAN STATEMENT I saw and evaluated the patient. I reviewed the resident's note and discussed the case with the resident. I agree with the resident's findings and plan as documented. SUBJECTIVE:c/o abdominal pain OBJECTIVE: Vital Signs Temperature 97.7 F 10/21/16 15:38 Pulse Rate 93 H 10/21/16 15:38 Respiratory Rate 18 10/21/16 15:38 Blood Pressure 144/76 10/21/16 15:38 O2 Sat by Pulse Oximetry (%) 97 10/20/16 21:00 GENERAL: The patient is awake, alert, appears cachectic HEAD: Normal with no signs of trauma. EYES: extraocular movements intact ENT: Ears normal, nares patent NECK: Trachea midline LUNGS: Poor inspiratory effort accessory muscle use. ABD: distended , epigastric tenderness PSYCH: Depressed mood and affect. 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 Currently on paliative XRT , completed 3/10 treatments . # Intarctable nausea and vomiting, likely central ,on IV Zofran # Intractable pain - receiving IV narcotics and pain control is suboptimal # abdominal distension - had BP yesterday, no vomiting - if persists - will obtain AXR Poor prognosis Declining functional status and functional quadriplegia. Paliative care follow up is appreciated. Consider hospice .
--- NOTE | 2016-10-21 18:59 | PN ---
Progress Note (short form) - Note Progress Note: PAtient seen and examined rue weakness no vomiting STILL WITH ABDOMINAL DISTENTION S/P FLEETS ENEMA YESTERDAY Last Vital Signs Temp Pulse Resp BP Pulse Ox 97.7 F 93 H 18 144/76 96 10/21/16 15:38 10/21/16 15:38 10/21/16 15:38 10/21/16 15:38 10/21/16 09:00 HEENT: LO, EOM Intact Oropharynx: No thrush, No mucositis Cor: RSR, No murmurs, No gallops Lungs: Clear to P&A Abd: Soft, Normal bowel sounds, No organomegaly, mild tenderness to deep palpation. no guarding/rigidity Ext:RUE--3/5 Labs reviewed Current Medications Alprazolam (Xanax -) 0.25 mg PO BID PRN PRN Reason: ANXIETY Last Admin: 10/21/16 13:04 Dose: 0.25 mg Amlodipine Besylate (Norvasc -) 10 mg PO DAILY [facility] Last Admin: 10/21/16 15:43 Dose: Not Given Dexamethasone Sodium Phosphate (Decadron Injection -) 6 mg IVPB Q6H-IV [facility] Last Admin: 10/21/16 15:41 Dose: 6 mg Dronabinol (Marinol -) 5 mg PO BIDAC [facility] Last Admin: 10/21/16 15:42 Dose: 5 mg Famotidine/Sodium Chloride (Pepcid 20 Mg Premixed Ivpb -) 50 mls @ 100 mls/hr IVPB BID [facility] Last Admin: 10/21/16 10:52 Dose: 100 mls/hr Amino Acids (Clinimix -) 1,000 mls @ 83 mls/hr IV Q12H [facility] Last Admin: 10/21/16 15:40 Dose: 83 mls/hr Methylnaltrexone [place] (Relistor -) 8 mg SQ DAILY [facility] Last Admin: 10/21/16 15:43 Dose: Not Given Morphine Sulfate (Morphine Injection -) 3 mg IVPUSH Q3H PRN PRN Reason: PAIN Ondansetron HCl (Zofran Injection) 8 mg IVPB Q8H PRN PRN Reason: NAUSEA Last Admin: 10/21/16 13:01 Dose: 8 mg Oxycodone HCl (Roxicodone -) 10 mg PO Q3H PRN PRN Reason: SEVERE PAIN Polyethylene Glycol (Miralax (For Daily Use) -) 17 gm PO BID [facility] Last Admin: 10/21/16 14:04 Dose: Not Given Senna/Docusate Sodium (Pericolace -) 1 tablet PO BID [facility] Last Admin: 10/21/16 14:04 Dose: Not Given A/P 66 y/o patient with presumed lung cancer-- RUL mass/multiple lung nodules and C spine lesion with cord displacement /compression. RUE weakness mri brain---rt. 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 Refused RT today. will add xanax prn prior to RT on decadron 6mg Q6h continue miRALAX discussed with sister and patient.
[2016-10-22] MEDS: AMINO ACIDS 4.25%/D5W 1,000 ML IV SCH ×2 (01:07→15:01)
[2016-10-22] MEDS: ALPRAZolam 0.25 MG TABLET PO PRN ×2 (02:25→12:33)
[2016-10-22] MEDS: morphine CARPU-JECT 4 MG/1 ML DISP.SYRIN IVPUSH PRN ×6 (02:26→23:50)
[2016-10-22] MEDS: DEXAMETHASONE SOD PHOSPHATE 10 MG/1 ML VIAL IVPB SCH ×4 (02:58→20:27)
[2016-10-22] MEDS: DRONABINOL 5 MG CAPSULE PO SCH ×2 (06:11→17:25)
[2016-10-22] MEDS: FAMOTIDINE 20 MG/50 ML IVPB 50 ML IVPB SCH ×2 (09:11→21:45)
[2016-10-22] MEDS: POLYETHYLENE GLYCOL 3350 119 GM BTL PO SCH ×2 (09:11→21:45)
[2016-10-22] MEDS: amLODIPine BESYLATE 10 MG TABLET (FP) PO SCH (09:11)
[2016-10-22] MEDS: SENNOSIDES/DOCUSATE COMBO (SENNA PLUS) TABLET (UD) PO SCH ×2 (09:11→21:45)
[2016-10-22] MEDS: ONDANSETRON 4 MG/2 ML VIAL IVPB PRN (12:33)
--- NOTE | 2016-10-22 14:06 | PN ---
Progress Note (short form) - Note Progress Note: Radiation Oncology: Mr Batres was in too much pain to complete treatment. The neck was completed today . He has now received 1200 cGy. The brain was not treated. He completed 900 cGy. I spoke with nursing and Dr. Mcghee.
[2016-10-22] MEDS: Methylnaltrexone Bromide 12 MG/0.6 ML KIT SQ SCH (14:30)
--- NOTE | 2016-10-22 15:28 | PN ---
Physical Exam: SUBJECTIVE: Patient seen and examined. He refused to talk and have PE. OBJECTIVE: Vital Signs Period Temp Pulse Resp BP Sys/Ricci Pulse Ox Last 24 Hr 97.7 F-98.0 F 77-93 18-20 140-150/70-84 96-96 PE: the pt refused Laboratory Results - last 24 hr 10/22/16 05:51 POC Glucometer 115 Active Medications Generic Name Dose Route Start Last Admin Trade Name Freq PRN Reason Stop Dose Admin Alprazolam 0.25 mg 10/20/16 19:23 10/22/16 12:33 Xanax - PO 0.25 mg BID PRN Administration ANXIETY Amlodipine Besylate 10 mg 10/05/16 15:00 10/22/16 09:11 Norvasc - PO 10 mg DAILY [facility] Administration Dexamethasone Sodium Phosphate 6 mg 10/11/16 21:15 10/22/16 14:35 Decadron Injection - IVPB 6 mg Q6H-IV [facility] Administration Dronabinol 5 mg 10/15/16 16:30 10/22/16 06:11 Marinol - PO 5 mg BIDAC [facility] Administration Famotidine/Sodium Chloride 50 mls @ 100 mls/hr 10/14/16 18:00 10/22/16 09:11 Pepcid 20 Mg Premixed Ivpb - IVPB 100 mls/hr BID [facility] Administration Amino Acids 1,000 mls @ 83 mls/hr 10/15/16 13:40 10/22/16 15:01 Clinimix - IV 83 mls/hr Q12H [facility] Administration Methylnaltrexone [place] 8 mg 10/19/16 10:00 10/22/16 14:30 Relistor - SQ 8 mg DAILY [facility] Administration Morphine Sulfate 3 mg 10/21/16 14:58 10/22/16 12:33 Morphine Injection - IVPUSH 3 mg Q3H PRN Administration PAIN Ondansetron HCl 8 mg 10/19/16 08:06 10/22/16 12:33 Zofran Injection IVPB 8 mg Q8H PRN Administration NAUSEA Oxycodone HCl 10 mg 10/19/16 12:03 Roxicodone - PO Q3H PRN SEVERE PAIN Polyethylene Glycol 17 gm 10/20/16 22:00 10/22/16 09:11 Miralax (For Daily Use) - PO Not Given BID [facility] Senna/Docusate Sodium 1 tablet 10/11/16 22:00 10/22/16 09:11 Pericolace - PO 1 tablet BID [facility] Administration CXR: prominent right hilium, possibility of hiliar mass MRI: Outside MRI of C-spine with C-6/C-7 mass with osseous destruction. Mass extends into spinal canal displacing the spinal cord to L of the midline and severe right neural foramina and right lateral recess narrowing. Has central spinal canal stenosis and discogenic disease as well. CT chest/abdomen/pelvis; large mass in right lower lobe, scattered nodules in lungs, hydrocele on right kidney, no abdominal pathology MRI brain:2.7x2.5x2 cm enhancing right cerebellar hemispheric mass lesion consistent with metastatic disease. MRI cervical spine;Neoplastic disease is seen involving the right lower cervical /upper thoracic spine as discussed with resultant mild to moderate leftward spinal cord displacement. This finding demonstrates no gross interval change in comparison to a previous MRI study of 09/08/2016 (performed at a different facility). Accurate comparison however is difficult as exam coverage on the previous study did not fully include the described neoplastic lesion. On the current exam there is probable identification of neoplastic disease extending contiguously into the right brachial plexus. There is also contiguous neoplastic erosion of the right first and second ribs posteriorly. CT scan of the cervical spine w/o contrast: Examination was performed for radiation therapy. Compared to prior MRI of the cervical spine dated 10/07/2016 Focal bone destruction/metastasis is again seen involving right lateral aspect of C7 vertebral body as well as the right lamina and posterior spinous process. Bone destruction/metastasis also involving right lateral aspect of T1 vertebral body. An associated large soft tissue mass extending into the corresponding neural foramina, spinal canal with suggestion of mild shift of the cord towards the left as well as a large right paraspinal soft tissue component are again seen. An approximately 3 cm pleural-based mass is again seen in superior segment of the right lower lobe consistent with clinical history of lung cancer. A small pulmonary nodule again seen in the right upper lobe and another tiny juxtapleural nodule in the right upper lobe, posteriorly. The height and alignment of the vertebral bodies appear unremarkable. The airway is patent and symmetric without gross narrowing. No gross enlarged lymph nodes in the neck on this noncontrast examination. Moderate degenerative disc disease at C6-C7 anterolisthesis extent C5-C6 and C4-C5 level with mild posterior spur formation bilateral uncovertebral hypertrophy mainly at C5-C6 level ASSESSMENT/PLAN: 65 year old male with no PMH presents to the hospital referred from Dr. Claros office. He is complaining of right hand weakness and numbness that started in May.Today he is also complaining of pain in the cervical spine, weakness in right UE, especially in hand and pain in the tip of his fingers, and no sensation in 4th and 5th digits of R hand. The pt states that he lost 20 lbs in the past 5 months. He is admitted to med surg for stage 4 metastatic cancer. 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 Total of 10 treatments. -f/u Oncology consultation: continue dexamethasone to 6 mg Q6H -f/u pain management recommendations: Morphine, Oxycodone, -cerebellar mass will require radiation -neurological assessment -right lung mass and multiple nodules -f/u Psychology/Pastoral care/Palliative care Constipation/Nausea/Vomiting and lack of appetite: -due to pain medications, fleet enema yesterday -Miralax TID -Pericolace 1 tab BID -Clinimix IV, increased thre rate to 83 ml/hr -Marinol 5 mg before meals -Methylnaltrexone bromide 8 mg SQ qd -f/u GI consultation -will obtain abd x ray today Severe malnutrition; BMI 17.7 -cont Clinimix and Marinol -low Na diet and Zofran fr nausea Hypertension: -no home meds -started Norvasc 10 mg Daily CKD: -f/u Nephrology consult, kidney and bladder US, the pt refused -no known baseline -avoid nephrotoxic substances DVT PPX: -SCDs F/E/N: No/No changes/No Disposition; Med surg, radiation therapy, will continue treatments in the hospital Problem List - Problems (1) Cervical spinal mass Code(s): G95.9 - DISEASE OF SPINAL CORD, UNSPECIFIED (2) Right hand weakness Code(s): M62.81 - MUSCLE WEAKNESS (GENERALIZED) (3) Mass of right lung Code(s): R91.8 - OTHER NONSPECIFIC ABNORMAL FINDING OF LUNG FIELD Visit type - Emergency Visit Emergency Visit: Yes ED Registration Date: 10/05/16 Care time: The patient presented to the Emergency Department on the above date and was hospitalized for further evaluation of their emergent condition. - New Patient This patient is new to me today: No - Critical Care Critical Care patient: No - Discharge Referral Referred to [facility] No
--- NOTE | 2016-10-22 16:54 | PN ---
Teaching Attending Note Name of Resident: Myra Erazo ATTENDING PHYSICIAN STATEMENT I saw and evaluated the patient. I reviewed the resident's note and discussed the case with the resident. I agree with the resident's findings and plan as documented. SUBJECTIVE: Vital Signs Temperature 98.2 F 10/22/16 10:00 Pulse Rate 94 H 10/22/16 10:00 Respiratory Rate 18 10/22/16 10:00 Blood Pressure 144/83 10/22/16 10:00 O2 Sat by Pulse Oximetry (%) 96 10/22/16 09:00 LUNGS: Poor inspiratory effort accessory muscle use. ABD: distended , epigastric tenderness PSYCH: Depressed mood and affect. 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 Currently on paliative XRT , completed 3/10 treatments so far . # Intarctable nausea and vomiting, likely central ,on IV Zofran # Intractable pain - receiving IV narcotics and pain control is suboptimal # abdominal distension - last BM yesterday, no vomiting refused AXR very poor prognosis for meaningful recovery Declining functional status and functional quadriplegia. Would consider hospice, however patient is too lethargic to discuss plan Remains Full Code .
[2016-10-22 17:23] VITALS: TEMP 98.3
[2016-10-23] MEDS: DEXAMETHASONE SOD PHOSPHATE 10 MG/1 ML VIAL IVPB SCH ×4 (02:47→21:35)
[2016-10-23] MEDS: AMINO ACIDS 4.25%/D5W 1,000 ML IV SCH ×4 (02:51→17:36)
[2016-10-23] MEDS: morphine CARPU-JECT 4 MG/1 ML DISP.SYRIN IVPUSH PRN ×2 (03:03→08:01)
[2016-10-23] MEDS: DRONABINOL 5 MG CAPSULE PO SCH ×2 (06:00→16:35)
[2016-10-23] MEDS ORDERED: morphine CARPU-JECT 4 MG/1 ML DISP.SYRIN IVPUSH PRN (08:33)
[2016-10-23] MEDS: POLYETHYLENE GLYCOL 3350 119 GM BTL PO SCH ×2 (09:21→22:07)
[2016-10-23] MEDS: FAMOTIDINE 20 MG/50 ML IVPB 50 ML IVPB SCH ×2 (09:21→22:07)
[2016-10-23] MEDS: amLODIPine BESYLATE 10 MG TABLET (FP) PO SCH (11:32)
[2016-10-23] MEDS: SENNOSIDES/DOCUSATE COMBO (SENNA PLUS) TABLET (UD) PO SCH ×2 (11:32→22:07)
[2016-10-23] MEDS: Methylnaltrexone Bromide 12 MG/0.6 ML KIT SQ SCH (12:39)
[2016-10-23] MEDS ORDERED: LORAZEPAM CARPU-JECT 2 MG/ML DISP.SYRIN IVPUSH PRN (13:01)
--- NOTE | 2016-10-23 14:04 | PN ---
Physical Exam: SUBJECTIVE: Patient seen. He was lying in his bed with eyes closed. He appeared to be very lethargic. His HR was elevated, EKG was done, A.Fib with RVR. Family was present: sister and daughter. OBJECTIVE: Vital Signs Period Temp Pulse Resp BP Sys/Ricci Pulse Ox Last 24 Hr 98.3 F-98.3 F 98-98 20-20 142-142/82-82 95 The pt refused PE. Active Medications Generic Name Dose Route Start Last Admin Trade Name Freq PRN Reason Stop Dose Admin Amlodipine Besylate 10 mg 10/05/16 15:00 10/23/16 11:32 Norvasc - PO Not Given DAILY TANIA Dexamethasone Sodium Phosphate 6 mg 10/11/16 21:15 10/23/16 09:20 Decadron Injection - IVPB 6 mg Q6H-IV TANIA Administration Dronabinol 5 mg 10/15/16 16:30 10/23/16 06:00 Marinol - PO 5 mg BIDAC TANIA Administration Famotidine/Sodium Chloride 50 mls @ 100 mls/hr 10/14/16 18:00 10/23/16 09:21 Pepcid 20 Mg Premixed Ivpb - IVPB 100 mls/hr BID TANIA Administration Amino Acids 1,000 mls @ 83 mls/hr 10/15/16 13:40 10/23/16 04:17 Clinimix - IV 83 mls/hr Q12H TANIA Administration Lorazepam 0.5 mg 10/23/16 13:01 Ativan Injection - IVPUSH Q6H PRN ANXIETY Methylnaltrexone [place] 8 mg 10/19/16 10:00 10/23/16 12:39 Relistor - SQ Not Given DAILY TANIA Morphine Sulfate 3 mg 10/23/16 08:33 Morphine Injection - IVPUSH Q3H PRN PAIN Ondansetron HCl 8 mg 10/19/16 08:06 10/22/16 12:33 Zofran Injection IVPB 8 mg Q8H PRN Administration NAUSEA Oxycodone HCl 10 mg 10/19/16 12:03 Roxicodone - PO Q3H PRN SEVERE PAIN Polyethylene Glycol 17 gm 10/20/16 22:00 10/23/16 09:21 Miralax (For Daily Use) - PO Not Given BID TANIA Senna/Docusate Sodium 1 tablet 10/11/16 22:00 10/23/16 11:32 Pericolace - PO Not Given BID TANIA CXR: prominent right hilium, possibility of hiliar mass MRI: Outside MRI of C-spine with C-6/C-7 mass with osseous destruction. Mass extends into spinal canal displacing the spinal cord to L of the midline and severe right neural foramina and right lateral recess narrowing. Has central spinal canal stenosis and discogenic disease as well. CT chest/abdomen/pelvis; large mass in right lower lobe, scattered nodules in lungs, hydrocele on right kidney, no abdominal pathology MRI brain:2.7x2.5x2 cm enhancing right cerebellar hemispheric mass lesion consistent with metastatic disease. MRI cervical spine;Neoplastic disease is seen involving the right lower cervical /upper thoracic spine as discussed with resultant mild to moderate leftward spinal cord displacement. This finding demonstrates no gross interval change in comparison to a previous MRI study of 09/08/2016 (performed at a different facility). Accurate comparison however is difficult as exam coverage on the previous study did not fully include the described neoplastic lesion. On the current exam there is probable identification of neoplastic disease extending contiguously into the right brachial plexus. There is also contiguous neoplastic erosion of the right first and second ribs posteriorly. CT scan of the cervical spine w/o contrast: Examination was performed for radiation therapy. Compared to prior MRI of the cervical spine dated 10/07/2016 Focal bone destruction/metastasis is again seen involving right lateral aspect of C7 vertebral body as well as the right lamina and posterior spinous process. Bone destruction/metastasis also involving right lateral aspect of T1 vertebral body. An associated large soft tissue mass extending into the corresponding neural foramina, spinal canal with suggestion of mild shift of the cord towards the left as well as a large right paraspinal soft tissue component are again seen. An approximately 3 cm pleural-based mass is again seen in superior segment of the right lower lobe consistent with clinical history of lung cancer. A small pulmonary nodule again seen in the right upper lobe and another tiny juxtapleural nodule in the right upper lobe, posteriorly. The height and alignment of the vertebral bodies appear unremarkable. The airway is patent and symmetric without gross narrowing. No gross enlarged lymph nodes in the neck on this noncontrast examination. Moderate degenerative disc disease at C6-C7 anterolisthesis extent C5-C6 and C4-C5 level with mild posterior spur formation bilateral uncovertebral hypertrophy mainly at C5-C6 level ASSESSMENT/PLAN: 65 year old male with no PMH presents to the hospital referred from Dr. Claros office. He is complaining of right hand weakness and numbness that started in May. He is also complaining of pain in the cervical spine, weakness in right UE, especially in hand and pain in the tip of his fingers, and no sensation in 4th and 5th digits of R hand. The pt states that he lost 20 lbs in the past 5 months. He is admitted to med surg for stage 4 metastatic cancer. 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 -f/u Oncology consultation: continue dexamethasone to 6 mg Q6H -f/u pain management recommendations: Morphine 3 Q3h PRN, Oxycodone, Ativan 0.5 mg IV Q6H -cerebellar mass will require radiation -neurological assessment -right lung mass and multiple nodules -f/u Psychology/Pastoral care/Palliative care Constipation/Nausea/Vomiting and lack of appetite: -due to pain medications, fleet enema yesterday -Miralax TID -Pericolace 1 tab BID -Clinimix IV, increased the rate to 83 ml/hr -Marinol 5 mg before meals -Methylnaltrexone bromide 8 mg SQ qd -f/u GI consultation -will obtain abd x ray today Severe malnutrition; BMI 17.7 -cont Clinimix and Marinol -low Na diet and Zofran fr nausea Hypertension: -no home meds -started Norvasc 10 mg Daily CKD: -f/u Nephrology consult, kidney and bladder US, the pt refused -no known baseline -avoid nephrotoxic substances DVT PPX: -SCDs F/E/N: No/No changes/No Disposition; Med surg, radiation therapy, will continue treatments in the hospital and comfort care. Discussed with family. DNR/DNI Problem List - Problems (1) Cervical spinal mass Code(s): G95.9 - DISEASE OF SPINAL CORD, UNSPECIFIED (2) Right hand weakness Code(s): M62.81 - MUSCLE WEAKNESS (GENERALIZED) (3) Mass of right lung Code(s): R91.8 - OTHER NONSPECIFIC ABNORMAL FINDING OF LUNG FIELD Visit type - Emergency Visit Emergency Visit: Yes ED Registration Date: 10/05/16 Care time: The patient presented to the Emergency Department on the above date and was hospitalized for further evaluation of their emergent condition. - New Patient This patient is new to me today: No - Critical Care Critical Care patient: No - Discharge Referral Referred to [facility] No
--- NOTE | 2016-10-23 14:52 | PN ---
Teaching Attending Note Name of Resident: Myra Erazo ATTENDING PHYSICIAN STATEMENT I saw and evaluated the patient. I reviewed the resident's note and discussed the case with the resident. I agree with the resident's findings and plan as documented. SUBJECTIVE: Patient is very lethargic. OBJECTIVE: Vital Signs Period Temp Pulse Resp BP Sys/Ricci Pulse Ox Last 24 Hr 98.3 F-98.3 F 98-98 20-20 142-142/82-82 95 GENERAL: Lethargic, cachectic HEART Irregular, tachycardic LUNGS: Bilateral rhonchi ABDOMEN: Soft, non-distended, normal BS EXTREMITIES: No edema ASSESSMENT AND PLAN: This is a 65-year-old man who presented with neck pain, right hand weakness and numbness. 1. 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 They request DNR and comfort care - Continue Decadron, morphine as needed 2. Severe malnutrition with BMI 17.7 - Unable to take PO - Continue Clinimix for now 3. Hypertension 4. Stage 3 CKD 5. Nausea and vomiting - Continue Zofran as needed 6. Atrial fibrillation with RVR
[2016-10-23 14:57] VITALS: BP 104/73; PULSE 108
--- NOTE | 2016-10-23 18:06 | PN ---
Progress Note (short form) - Note Progress Note: PAtient seen and examined worsening clinical condition STILL WITH ABDOMINAL DISTENTION moaning altered mental status Last Vital Signs Temp Pulse Resp BP Pulse Ox 98.3 F 108 H 22 104/73 98 10/22/16 22:00 10/23/16 14:55 10/23/16 09:00 10/23/16 14:55 10/23/16 09:00 HEENT: nl Cor: RSR, No murmurs, No gallops Lungs: Clear to P&A Abd: Soft, Normal bowel sounds, No organomegaly Ext:No significant edema Skin: No rashes, Integument intact Labs reviewed Current Medications Amlodipine Besylate (Norvasc -) 10 mg PO DAILY [facility] Last Admin: 10/23/16 11:32 Dose: Not Given Dexamethasone Sodium Phosphate (Decadron Injection -) 6 mg IVPB Q6H-IV [facility] Last Admin: 10/23/16 16:36 Dose: 6 mg Dronabinol (Marinol -) 5 mg PO BIDAC [facility] Last Admin: 10/23/16 16:35 Dose: Not Given Famotidine/Sodium Chloride (Pepcid 20 Mg Premixed Ivpb -) 50 mls @ 100 mls/hr IVPB BID [facility] Last Admin: 10/23/16 09:21 Dose: 100 mls/hr Amino Acids (Clinimix -) 1,000 mls @ 83 mls/hr IV Q12H [facility] Last Admin: 10/23/16 17:36 Dose: 83 mls/hr Lorazepam (Ativan Injection -) 0.5 mg IVPUSH Q6H PRN PRN Reason: ANXIETY Last Admin: 10/23/16 18:58 Dose: 0.5 mg Methylnaltrexone [place] (Relistor -) 8 mg SQ DAILY [facility] Last Admin: 10/23/16 12:39 Dose: Not Given Morphine Sulfate (Morphine Injection -) 3 mg IVPUSH Q3H PRN PRN Reason: PAIN Last Admin: 10/23/16 17:35 Dose: 3 mg Ondansetron HCl (Zofran Injection) 8 mg IVPB Q8H PRN PRN Reason: NAUSEA Last Admin: 10/22/16 12:33 Dose: 8 mg Oxycodone HCl (Roxicodone -) 10 mg PO Q3H PRN PRN Reason: SEVERE PAIN Polyethylene Glycol (Miralax (For Daily Use) -) 17 gm PO BID [facility] Last Admin: 10/23/16 09:21 Dose: Not Given Senna/Docusate Sodium (Pericolace -) 1 tablet PO BID [facility] Last Admin: 10/23/16 11:32 Dose: Not Given A/P 66 y/o patient with presumed lung cancer-- RUL mass/multiple lung nodules and C spine lesion with cord displacement /compression. RUE weakness mri brain---rt. 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 ALK/ EGFR neg. Started RT to C-s pine and brain lesion. Now with worsening clinical status Agree with palliative care. decadron/ativan/morphine discussed with [patients sister. DNR/DNI ? consider in patient hospice
--- NOTE | 2016-10-23 21:02 | EKG ---
Test Reason : Blood Pressure : / mmHG Vent. Rate : 142 BPM Atrial Rate : 117 BPM P-R Int : 000 ms QRS Dur : 090 ms QT Int : 282 ms P-R-T Axes : 000 072 257 degrees QTc Int : 433 ms POOR DATA QUALITY, INTERPRETATION MAY BE ADVERSELY AFFECTED ATRIAL FIBRILLATION WITH RAPID VENTRICULAR RESPONSE MINIMAL VOLTAGE CRITERIA FOR LVH, MAY BE NORMAL VARIANT MARKED ST ABNORMALITY, POSSIBLE ANTEROLATERAL SUBENDOCARDIAL INJURY ABNORMAL ECG WHEN COMPARED WITH ECG OF 05-OCT-2016 10:57, SIGNIFICANT CHANGES HAVE OCCURRED Confirmed by NICOLTETE FIERRO MD ([id number]) on 10/23/2016 9:02:18 PM Referred By: Nita DOWNEY Confirmed By:NICOLETTE FIERRO MD
--- NOTE | 2016-10-23 23:23 | HOSP ---
Subjective - Review of Symptoms Events since last encounter: RN called that patient is DNR and DNI and he is not responding Patient seen and examined Patient has no spontaneous breathing., corneal reflex absent, pupil fixed and dilated, no pulse. Bp unrecordable Patient is pronounced at 11:16pm on 10/23/2016. Family member Olga ( sister ) informed. Physical Examination Vital Signs: Vital Signs Temperature 98.3 F 10/22/16 22:00 Pulse Rate 108 H 10/23/16 14:55 Respiratory Rate 22 10/23/16 09:00 Blood Pressure 104/73 10/23/16 14:55 O2 Sat by Pulse Oximetry (%) 98 10/23/16 09:00 Labs: CBC, BMP 10/18/16 06:00 10/18/16 06:00 Visit type - Emergency Visit Emergency Visit: Yes ED Registration Date: 10/05/16 Care time: The patient presented to the Emergency Department on the above date and was hospitalized for further evaluation of their emergent condition. - New Patient This patient is new to me today: Yes Date on this admission: 10/23/16 - Critical Care Critical Care patient: No
--- NOTE | 2016-10-26 11:46 | DS ---
Physical Exam: SUBJECTIVE: The pt was lethatgic, not answering questions, following commands. OBJECTIVE: PHYSICAL EXAM N/A LABS HOSPITAL COURSE: Date of Admission:10/05/16 Date of Discharge: 10/26/16 Minutes to complete discharge: 50 Discharge Summary Reason For Visit: CERVICAL SPINE MASS,WEAKNESS OF R HAND Hospital Course: 65 year old male with no PMH presents to the hospital referred from Dr. Claros office. He is complaining of right hand weakness and numbness that started in May. He is also complaining of pain in the cervical spine, weakness in right UE, especially in hand and pain in the tip of his fingers, and no sensation in 4th and 5th digits of R hand. The pt states that he lost 20 lbs in the past 5 months. He is admitted to med surg for stage 4 metastatic cancer. Hospital course; Stage 4 metastatic cancer originated from Lung: CXR showed prominent right hilum , possible hilar mass, MRI c-spine, CT cest/abdomen/pelvis. We consulted Oncology, cervical mass- biopsy done which showed large cell neuroendocrine tumor, mets to cerebellum, origin lung. He was getting palliative RT treatments to c-spine and dexamethasone, pain management recommendations: Morphine IV, Oxycodone, Xanax changed to Ativan, Psychology/Pastoral care/Palliative care. Constipation/Nausea/Vomiting and lack of appetite: due to pain medications, fleet enema, Miralax, Pericolace, Clinimix IV, Marinol, Methylnaltrexone bromide , consulted GI, abdominal x ray. Severe malnutrition; BMI 17.7: we cont Clinimix and Marinol, low Na diet and Zofran for nausea Hypertension: no home meds, we started Norvasc CKD: Nephrology consulted, kidney and bladder US was ordered but the pt refused , no known Cr baseline, we avoided nephrotoxic substances. The pt clinically was detoriorating, refused lab work, imaging studies. He was more lethargic. We discussed with family who decided for DNR/DNI. He . Condition: Guarded - Instructions Disposition: - Home Medications Comprehensive Discharge Medication List: Ambulatory Orders NK [No Known Home Medication] 10/05/16 Problem List - Problems (1) Cervical spinal mass Code(s): G95.9 - DISEASE OF SPINAL CORD, UNSPECIFIED (2) Right hand weakness Code(s): M62.81 - MUSCLE WEAKNESS (GENERALIZED) (3) Mass of right lung Code(s): R91.8 - OTHER NONSPECIFIC ABNORMAL FINDING OF LUNG FIELD This patient is new to me today: No Emergency Visit: Yes ED Registration Date: 10/05/16 Care time: The patient presented to the Emergency Department on the above date and was hospitalized for further evaluation of their emergent condition. Critical Care patient: No - Discharge Referral Referred to [facility] No
== END 2016-10-23 23:16 | disposition expired | DRG 28 ==
LOC: JER 10:01 → JERBED 11:50 → J8W 15:07
PROVIDERS: ADMIT Internal Medicine; ATTEND Internal Medicine
PROC: 00B Central Nervous System and Cranial Nerves, Excision (ICD-10-PCS; principal; 2016-10-08)
DX: C79.31 Secondary malignant neoplasm of brain (principal); G93.6 Cerebral edema; E43 Unspecified severe protein-calorie malnutrition; N17.9 Acute kidney failure, unspecified; C34.90 Malignant neoplasm of unspecified part of unspecified bronchus or lung; C79.51 Secondary malignant neoplasm of bone; Z68.1 Body mass index [BMI] 19.9 or less, adult; I12.9 Hypertensive chronic kidney disease with stage 1 through stage 4 chronic kidney disease, or unspecified chronic kidney disease; N18.3 Chronic kidney disease, stage 3 (moderate); M62.81 Muscle weakness (generalized); R91.8 Other nonspecific abnormal finding of lung field; E83.52 Hypercalcemia; N43.2 Other hydrocele; E86.0 Dehydration; F32.89 Other specified depressive episodes; K59.01 Slow transit constipation; K63.89 Other specified diseases of intestine; R11.2 Nausea with vomiting, unspecified; Z66 Do not resuscitate; Z87.891 Personal history of nicotine dependence
CPT/HCPCS: 36415; 62269; 70450-TC; 70553-TC; 71010-TC; 71250-TC; 72125-TC; 72142-TC; 74000-TC; 74176-TC; 77012-TC; 80048; 80053; 81003; 81015; 82397; 82570; 83970; 84156; 85025; 85027; 85610; 85730; 86850; 86900; 86901; 88305-TC; 88341-TC; 93005; 93010; 97116-GP; 97161-GP; 99285-25; A9576; J3480; J8540